=== PATIENT | female | born 1955 | race Caucasian/White ===

== ENCOUNTER 2019-10-17 19:22 | Emergency (ER) | payer MEDICAID ==
[~2019-10-17] VITALS: Ht 167.6 cm; Wt 158.0 kg
[2019-10-17 19:39] VITALS: BP 133/94
== END 2019-10-17 19:30 | disposition left against medical advice (07) ==
LOC: ER 19:22
DX: M79.662 Pain in left lower leg (principal); M79.661 Pain in right lower leg; Z53.21 Procedure and treatment not carried out due to patient leaving prior to being seen by health care provider

== ENCOUNTER 2022-07-16 11:18 | Inpatient (IN) | payer MEDICAID ==
[~2022-07-16] VITALS: Ht 170.2 cm; Wt 191.9 kg
[~2022-07-16 11:18] MED LIST: METF-416 MT; TRAM50TA3 MT
[2022-07-16] MEDS ORDERED: DILTIAZEM HCL 5MG/ML 5ML VIAL IV ONE (11:30)
[2022-07-16] MEDS ORDERED: ASPIRIN 81MG TABLET PO ONE (11:30)
[2022-07-16 12:42] LABS: BASOPHILS % 0.4 % (0.0-2.0); EOSINOPHILS % 0.7 % (0.0-5.0); HEMATOCRIT. 39.5 % (36.0-48.0); HEMOGLOBIN. 12.4 g/dL (12.0-16.0); LYMPHOCYTES % 14.6 % (20.0-50.0); MEAN CORPUSCULAR HEMOGLOBIN 28.7 pg (28.0-32.0); MEAN CORPUSCULAR VOLUME 91.3 fL (81.0-99.0); MEAN PLATELET VOLUME 7.9 fl (7.4-10.4); MONOCYTES % 9.3 % (2.0-8.0); PLATELET 281 x1000/uL (130-400); RED BLOOD CELL COUNT 4.32 mill/uL (4.2-5.4)
[2022-07-16] MEDS ORDERED: DILTIAZEM HCL 5MG/ML 5ML VIAL IV NR (16:15)
[2022-07-16 16:30] LABS: CHLORIDE 96 mEq/L (98-107)
[2022-07-16] MEDS ORDERED: DILTIAZEM HCL 60MG TABLET PO NR (16:30)
[2022-07-16] MEDS ORDERED: FUROSEMIDE 40MG/4ML VIAL IV NR (17:00)
[2022-07-16] MEDS ORDERED: LEVOTHYROXINE SODIUM 25MCG TABLET PO NR (17:00)
[2022-07-16] MEDS ORDERED: NITROGLYCERIN OINT 1GM/INCH UDPKT TD NR (17:00)
[2022-07-16] MEDS ORDERED: GUAIFENESIN 200MG/10ML SUGAR FREE UDC PO PRN (18:15)
[2022-07-16] MEDS ORDERED: CLONIDINE 0.1MG TABLET PO PRN (18:15)
[2022-07-16] MEDS ORDERED: NALOXONE HCL 0.4MG/ML VIAL IV PRN (18:15)
[2022-07-16] MEDS ORDERED: ACETAMINOPHEN 325MG TABLET PO PRN (18:15)
[2022-07-16] MEDS ORDERED: DILTIAZEM 125MG/125ML PMX 100 ML IV SCH (19:15)
[2022-07-16 20:00] VITALS: BP 97/66
[2022-07-16] MEDS ORDERED: DIGOXIN 500MCG/2ML AMP IV PRN (20:00)
[2022-07-16] MEDS: ENOXAPARIN 40MG/0.4ML SYR SUBCUT SCH (20:32)
[2022-07-16 20:54] LABS: INR 1.1
[2022-07-16 21:23] VITALS: BP 132/67
[2022-07-16 22:00] VITALS: BP 106/67
[2022-07-16] MEDS ORDERED: ENOXAPARIN 100MG/ML SYR SUBCUT SCH (22:00)
[2022-07-17] VITALS (12 sets, daily range): BP systolic 94–137; BP diastolic 27–94
[2022-07-17] MEDS ORDERED: FURO40TA5 PO (02:02)
[2022-07-17] MEDS ORDERED: LEVO200T8 PO (02:02)
[2022-07-17] MEDS ORDERED: METO100T16 PO (02:02)
[2022-07-17] MEDS ORDERED: LISI-186 PO (02:02)
[2022-07-17] MEDS ORDERED: DILT120C91 PO (02:02)
[2022-07-17] MEDS ORDERED: DILTIAZEM HCL 125 MG in DEXTROSE 5% WATER 125 ML IV SCH (03:15)
[2022-07-17] MEDS ORDERED: DEXTROSE 50% WATER 50ML SYRINGE IV PRN (05:30)
[2022-07-17] MEDS: ENOXAPARIN 40MG/0.4ML SYR SUBCUT SCH ×2 (05:38→17:12)
[2022-07-17 05:51] LABS: CHLORIDE 93 mEq/L (98-107)
[2022-07-17 06:09] LABS: T4 FREE 0.72 ng/dL (0.76-1.46)
[2022-07-17 06:49] LABS: BASOPHILS % 0.4 % (0.0-2.0); HEMATOCRIT. 37.6 % (36.0-48.0); LYMPHOCYTES % 14.9 % (20.0-50.0); MEAN CORPUSCULAR HEMOGLOBIN 28.8 pg (28.0-32.0); MEAN CORPUSCULAR VOLUME 90.4 fL (81.0-99.0); MEAN PLATELET VOLUME 7.5 fl (7.4-10.4); MONOCYTES % 7.8 % (2.0-8.0); NEUTROPHILS % 75.9 % (40.0-76.0); PLATELET 278 x1000/uL (130-400); RED BLOOD CELL COUNT 4.17 mill/uL (4.2-5.4); RED CELL DISTRIBUTION WIDTH 15.2 % (11.6-14.6)
[2022-07-17] MEDS ORDERED: LIDOCAINE HCL 1% 30ML VIAL (10MG/ML) ONE (07:29)
[2022-07-17] MEDS: BLOOD SUGAR DIAGNOSTIC STRIP TEST SCH ×4 (07:30→21:10)
[2022-07-17] MEDS: INSULIN LISPRO 100 UNITS/ML SUBCUT SCH ×4 (08:00→21:00)
[2022-07-17] MEDS: PANTOPRAZOLE SODIUM 40 MG/VIAL IV SCH (08:50)
[2022-07-17] MEDS: FUROSEMIDE 40MG/4ML VIAL IVP SCH (08:50)
[2022-07-17] MEDS: ENOXAPARIN 150MG/ML SYR SUBCUT SCH ×2 (08:56→21:00)
[2022-07-17 09:19] LABS: CLARITY URINE CLOUDY (CLEAR); COLOR URINE ORANGE (YELLOW); KETONES URINE NEGATIVE (NEGATIVE); LEUKOCYTE ESTERASE URINE 3+ (NEGATIVE); NITRITE URINE NEGATIVE (NEGATIVE); OCCULT BLOOD URINE 3+ (NEGATIVE); PH URINE 5.5 (4.5-8.0); PROTEIN URINE 2+ (NEGATIVE); SPECIFIC GRAVITY URINE 1.013 (1.005-1.030)
[2022-07-17 09:22] LABS: T4 FREE 0.74 ng/dL (0.76-1.46)
[2022-07-17] MEDS ORDERED: AMIODARONE HCL 900 MG in DEXT 5% WATER 500 ML IV SCH (10:00)
[2022-07-17 16:35] LABS: CREATINE KINASE MB FRACTION 1.3 ng/mL (0.5-3.6)
[2022-07-17] MEDS: ACETAMINOPHEN 325MG TABLET PO PRN (21:16)
[2022-07-17] MEDS: ONDANSETRON HCL 4MG/2ML INJ IV PRN (21:16)
[2022-07-18] VITALS: BP 112/59
[2022-07-18 02:00] VITALS: BP 109/74
[2022-07-18] MEDS: ENOXAPARIN 40MG/0.4ML SYR SUBCUT SCH (05:29)
[2022-07-18 05:44] LABS: HEMATOCRIT 34.2 % (36.0-48.0); HEMOGLOBIN 11.1 g/dL (12.0-16.0); MEAN CORPUSCULAR HEMOGLOBIN 28.8 pg (28.0-32.0); PLATELET 253 x1000/uL (130-400); RED BLOOD CELL COUNT 3.85 mill/uL (4.2-5.4); RED CELL DISTRIBUTION WIDTH 15.5 % (11.6-14.6)
[2022-07-18 06:03] LABS: CREATINE KINASE MB FRACTION 1.1 ng/mL (0.5-3.6)
[2022-07-18] MEDS: BLOOD SUGAR DIAGNOSTIC STRIP TEST SCH ×4 (07:30→21:19)
[2022-07-18] MEDS: INSULIN LISPRO 100 UNITS/ML SUBCUT SCH ×4 (08:00→21:00)
[2022-07-18 08:41] LABS: BG BASE EXCESS 12.1 mmol/L (-2.0-2.0); BG CARBOXYHEMOGLOBIN 0.8 % (0.5-1.5); BG DEOXYHEMOGLOBIN 6.3 % (0.0-5.0); BG HCO3 ACT 40.7 mmol/L (22.0-26.0); BG METHEMOGLOBIN 0.2 % (0.0-1.5); BG OXYGEN SATURATION 93.6 % (92.0-98.5); BG OXYHEMOGLOBIN 92.7 % (94.0-97.0); BG PCO2 76.1 mmHg (35.0-45.0); BG PH 7.346 (7.350-7.450); BG PO2 71.5 mmHg (75.0-100.0); BG SAMPLE SITE RIGHT RADIAL; BG VENT MODE NASAL CANNULA
[2022-07-18] MEDS: ENOXAPARIN 150MG/ML SYR SUBCUT SCH ×2 (09:00→21:19)
[2022-07-18] MEDS ORDERED: DIGOXIN 500MCG/2ML AMP IV NR ×2 (09:15→10:30)
[2022-07-18] MEDS: PANTOPRAZOLE SODIUM 40 MG/VIAL IV SCH (10:10)
[2022-07-18] MEDS: FUROSEMIDE 40MG/4ML VIAL IVP SCH (10:10)
[2022-07-18] MEDS: LEVOTHYROXINE SODIUM 100MCG TABLET PO SCH (10:12)
[2022-07-18 13:57] LABS: BG CARBOXYHEMOGLOBIN 1.1 % (0.5-1.5); BG DEOXYHEMOGLOBIN 0.7 % (0.0-5.0); BG FRACTION INSPIRED OXYGEN 60; BG HCO3 ACT 42.7 mmol/L (22.0-26.0); BG METHEMOGLOBIN 0.2 % (0.0-1.5); BG OXYGEN SATURATION 99.3 % (92.0-98.5); BG PCO2 85.2 mmHg (35.0-45.0); BG PH 7.318 (7.350-7.450); BG PO2 201.8 mmHg (75.0-100.0); BG SAMPLE SITE RIGHT RADIAL; BG TOTAL HEMOGLOBIN 12.5 g/dL (12.0-18.0); BG VENT MODE MASK - BIPAP
[2022-07-18 20:00] VITALS: BP 97/56
[2022-07-18] MEDS: BUDESONIDE 0.5MG/2ML NEB HHN SCH (20:53)
[2022-07-18] MEDS: SULFAMETHOXAZOLE/TRIMETHOPRIM 800/160MG TABLET PO SCH (21:19)
[2022-07-18] MEDS: HYDROCODONE/ACETAMINOPHEN 5/325MG TABLET PO PRN (21:20)
[2022-07-18 22:00] VITALS: BP 108/68
[2022-07-19] VITALS (16 sets, daily range): BP systolic 86–170; BP diastolic 32–88
[2022-07-19 01:38] LABS: CLARITY URINE CLOUDY (CLEAR); COLOR URINE ORANGE (YELLOW); KETONES URINE NEGATIVE (NEGATIVE); LEUKOCYTE ESTERASE URINE 2+ (NEGATIVE); NITRITE URINE NEGATIVE (NEGATIVE); OCCULT BLOOD URINE 3+ (NEGATIVE); PH URINE 5.5 (4.5-8.0); PROTEIN URINE 1+ (NEGATIVE); SPECIFIC GRAVITY URINE 1.011 (1.005-1.030)
[2022-07-19] MEDS: BLOOD SUGAR DIAGNOSTIC STRIP TEST SCH ×4 (07:30→21:02)
[2022-07-19] MEDS: INSULIN LISPRO 100 UNITS/ML SUBCUT SCH ×4 (08:00→21:00)
[2022-07-19] MEDS ORDERED: DIGOXIN 500MCG/2ML AMP IV SCH (08:00)
[2022-07-19] MEDS: BUDESONIDE 0.5MG/2ML NEB HHN SCH ×2 (08:24→22:32)
[2022-07-19] MEDS: IPRATROPIUM/ALBUTEROL 0.5-3(2.5)MG/3ML NEB HHN PRN ×2 (08:24→22:32)
[2022-07-19 08:47] LABS: BG BASE EXCESS 14.2 mmol/L (-2.0-2.0); BG CARBOXYHEMOGLOBIN 0.5 % (0.5-1.5); BG DEOXYHEMOGLOBIN 5.8 % (0.0-5.0); BG FRACTION INSPIRED OXYGEN 38; BG HCO3 ACT 44.1 mmol/L (22.0-26.0); BG METHEMOGLOBIN 0.9 % (0.0-1.5); BG OXYGEN SATURATION 94.1 % (92.0-98.5); BG OXYHEMOGLOBIN 92.8 % (94.0-97.0); BG PCO2 89.1 mmHg (35.0-45.0); BG PH 7.312 (7.350-7.450); BG PO2 75.4 mmHg (75.0-100.0); BG SAMPLE SITE RIGHT RADIAL; BG TOTAL HEMOGLOBIN 12.1 g/dL (12.0-18.0); BG VENT MODE NASAL CANNULA
[2022-07-19] MEDS: AMIODARONE HCL 200 MG TABLET PO SCH ×2 (09:45→20:50)
[2022-07-19] MEDS: SULFAMETHOXAZOLE/TRIMETHOPRIM 800/160MG TABLET PO SCH ×2 (09:45→20:48)
[2022-07-19] MEDS: LEVOTHYROXINE SODIUM 100MCG TABLET PO SCH (09:45)
[2022-07-19] MEDS: PANTOPRAZOLE SODIUM 40 MG/VIAL IV SCH (09:46)
[2022-07-19] MEDS: DOCUSATE SODIUM 100MG CAPSULE PO PRN (09:46)
[2022-07-19] MEDS: METOPROLOL TARTRATE 25MG TABLET PO SCH ×2 (09:46→20:47)
[2022-07-19] MEDS: FUROSEMIDE 40MG/4ML VIAL IVP SCH (09:47)
[2022-07-19] MEDS: ENOXAPARIN 150MG/ML SYR SUBCUT SCH ×2 (09:48→20:46)
[2022-07-19 10:14] LABS: HEMATOCRIT 35.1 % (36.0-48.0); HEMOGLOBIN 11.1 g/dL (12.0-16.0); MEAN CORPUSCULAR HEMOGLOBIN 28.5 pg (28.0-32.0); MEAN CORPUSCULAR VOLUME 90.2 fL (81.0-99.0); PLATELET 216 x1000/uL (130-400); RED BLOOD CELL COUNT 3.89 mill/uL (4.2-5.4); RED CELL DISTRIBUTION WIDTH 15.7 % (11.6-14.6)
[2022-07-19 10:47] LABS: CHLORIDE 95 mEq/L (98-107)
[2022-07-19] MEDS: ONDANSETRON HCL 4MG/2ML INJ IV PRN (15:08)
[2022-07-19] MEDS: HYDROCODONE/ACETAMINOPHEN 5/325MG TABLET PO PRN ×2 (16:51→20:49)
[2022-07-19 18:26] LABS: BG BASE EXCESS 15.1 mmol/L (-2.0-2.0); BG CARBOXYHEMOGLOBIN 0.9 % (0.5-1.5); BG DEOXYHEMOGLOBIN 3.3 % (0.0-5.0); BG FRACTION INSPIRED OXYGEN 44; BG HCO3 ACT 44.4 mmol/L (22.0-26.0); BG METHEMOGLOBIN 0.2 % (0.0-1.5); BG OXYGEN SATURATION 96.7 % (92.0-98.5); BG OXYHEMOGLOBIN 95.6 % (94.0-97.0); BG PCO2 83.3 mmHg (35.0-45.0); BG PH 7.345 (7.350-7.450); BG PO2 90.8 mmHg (75.0-100.0); BG SAMPLE SITE RIGHT RADIAL; BG TOTAL HEMOGLOBIN 12.2 g/dL (12.0-18.0); BG VENT MODE NASAL CANNULA
[2022-07-20] VITALS (13 sets, daily range): BP systolic 102–151; BP diastolic 59–101
[2022-07-20] MEDS: HYDROCODONE/ACETAMINOPHEN 5/325MG TABLET PO PRN (04:58)
[2022-07-20] MEDS: LEVOTHYROXINE SODIUM 100MCG TABLET PO SCH (06:53)
[2022-07-20] MEDS: BLOOD SUGAR DIAGNOSTIC STRIP TEST SCH ×3 (07:30→17:30)
[2022-07-20] MEDS: INSULIN LISPRO 100 UNITS/ML SUBCUT SCH ×3 (08:00→18:00)
[2022-07-20] MEDS: BUDESONIDE 0.5MG/2ML NEB HHN SCH ×2 (08:20→20:35)
[2022-07-20 08:33] LABS: BG BASE EXCESS 18.2 mmol/L (-2.0-2.0); BG CARBOXYHEMOGLOBIN 0.9 % (0.5-1.5); BG DEOXYHEMOGLOBIN 3.4 % (0.0-5.0); BG FRACTION INSPIRED OXYGEN 38; BG HCO3 ACT 49.1 mmol/L (22.0-26.0); BG METHEMOGLOBIN 0.2 % (0.0-1.5); BG OXYGEN SATURATION 96.6 % (92.0-98.5); BG OXYHEMOGLOBIN 95.5 % (94.0-97.0); BG PCO2 100.2 mmHg (35.0-45.0); BG PH 7.308 (7.350-7.450); BG PO2 92.9 mmHg (75.0-100.0); BG SAMPLE SITE LEFT RADIAL; BG TOTAL HEMOGLOBIN 12.3 g/dL (12.0-18.0); BG VENT MODE NASAL CANNULA
[2022-07-20] MEDS: METOPROLOL TARTRATE 25MG TABLET PO SCH ×2 (09:19→20:43)
[2022-07-20] MEDS: SULFAMETHOXAZOLE/TRIMETHOPRIM 800/160MG TABLET PO SCH ×2 (09:19→20:43)
[2022-07-20] MEDS: FUROSEMIDE 40MG/4ML VIAL IVP SCH (09:20)
[2022-07-20] MEDS: AMIODARONE HCL 200 MG TABLET PO SCH ×2 (09:20→20:43)
[2022-07-20] MEDS: FAMOTIDINE 20MG/2ML VIAL IV SCH ×2 (09:20→20:43)
[2022-07-20] MEDS: ENOXAPARIN 150MG/ML SYR SUBCUT SCH ×2 (09:21→20:44)
[2022-07-20] MEDS: ONDANSETRON HCL 4MG/2ML INJ IV PRN (10:02)
[2022-07-20] MEDS: ACETAMINOPHEN 325MG TABLET PO PRN (13:21)
[2022-07-20 17:05] LABS: BG BASE EXCESS 17.8 mmol/L (-2.0-2.0); BG DEOXYHEMOGLOBIN 4.8 % (0.0-5.0); BG HCO3 ACT 46.2 mmol/L (22.0-26.0); BG METHEMOGLOBIN 0.1 % (0.0-1.5); BG OXYGEN SATURATION 95.1 % (92.0-98.5); BG OXYHEMOGLOBIN 94.1 % (94.0-97.0); BG PH 7.402 (7.350-7.450); BG PO2 73.5 mmHg (75.0-100.0); BG SAMPLE SITE RIGHT RADIAL; BG TOTAL HEMOGLOBIN 12.4 g/dL (12.0-18.0); BG VENT MODE NASAL CANNULA
[2022-07-20] MEDS: IPRATROPIUM/ALBUTEROL 0.5-3(2.5)MG/3ML NEB HHN PRN (17:39)
[2022-07-20 17:59] LABS: HEMATOCRIT 37.3 % (36.0-48.0); HEMOGLOBIN 11.7 g/dL (12.0-16.0); MEAN CORPUSCULAR HEMOGLOBIN 28.3 pg (28.0-32.0); MEAN CORPUSCULAR VOLUME 89.9 fL (81.0-99.0); PLATELET 248 x1000/uL (130-400); RED BLOOD CELL COUNT 4.14 mill/uL (4.2-5.4); RED CELL DISTRIBUTION WIDTH 15.5 % (11.6-14.6)
[2022-07-20 18:21] LABS: CHLORIDE 90 mEq/L (98-107)
[2022-07-21] VITALS (14 sets, daily range): BP systolic 112–145; BP diastolic 36–96
[2022-07-21] MEDS: LEVOTHYROXINE SODIUM 100MCG TABLET PO SCH ×2 (07:07→08:19)
[2022-07-21] MEDS: BLOOD SUGAR DIAGNOSTIC STRIP TEST SCH ×4 (07:45→21:00)
[2022-07-21] MEDS: INSULIN LISPRO 100 UNITS/ML SUBCUT SCH ×4 (07:46→21:00)
[2022-07-21] MEDS: IPRATROPIUM/ALBUTEROL 0.5-3(2.5)MG/3ML NEB HHN PRN (08:15)
[2022-07-21] MEDS: FAMOTIDINE 20MG/2ML VIAL IV SCH (08:18)
[2022-07-21] MEDS: FUROSEMIDE 40MG/4ML VIAL IVP SCH ×2 (08:18→22:22)
[2022-07-21] MEDS: ENOXAPARIN 150MG/ML SYR SUBCUT SCH ×2 (08:19→22:23)
[2022-07-21] MEDS: AMIODARONE HCL 200 MG TABLET PO SCH ×2 (08:19→22:22)
[2022-07-21] MEDS: METOPROLOL TARTRATE 25MG TABLET PO SCH ×2 (08:19→22:20)
[2022-07-21] MEDS: SULFAMETHOXAZOLE/TRIMETHOPRIM 800/160MG TABLET PO SCH ×3 (08:19→22:25)
[2022-07-21] MEDS ORDERED: POLYVINYL ALCOHOL OPHTH DROPS 15ML BOTHEYE PRN (11:30)
[2022-07-21 13:30] LABS: HEMATOCRIT 36.6 % (36.0-48.0); HEMOGLOBIN 11.8 g/dL (12.0-16.0); MEAN CORPUSCULAR HEMOGLOBIN 28.8 pg (28.0-32.0); MEAN CORPUSCULAR VOLUME 89.2 fL (81.0-99.0); PLATELET 216 x1000/uL (130-400); RED CELL DISTRIBUTION WIDTH 15.2 % (11.6-14.6)
[2022-07-21 14:07] LABS: CHLORIDE 91 mEq/L (98-107)
[2022-07-21] MEDS: ONDANSETRON HCL 4MG/2ML INJ IV PRN (14:11)
[2022-07-21] MEDS: FAMOTIDINE 20MG TABLET PO SCH (22:26)
[2022-07-21] MEDS: BUDESONIDE 0.5MG/2ML NEB HHN SCH (23:15)
[2022-07-22] VITALS (13 sets, daily range): BP systolic 99–135; BP diastolic 58–89
[2022-07-22] MEDS: BUDESONIDE 0.5MG/2ML NEB HHN SCH ×3 (03:45→20:30)
[2022-07-22] MEDS: BLOOD SUGAR DIAGNOSTIC STRIP TEST SCH ×4 (07:30→20:39)
[2022-07-22] MEDS: IPRATROPIUM/ALBUTEROL 0.5-3(2.5)MG/3ML NEB HHN PRN ×2 (07:59→20:31)
[2022-07-22] MEDS: INSULIN LISPRO 100 UNITS/ML SUBCUT SCH ×4 (08:00→20:39)
[2022-07-22 09:57] LABS: BG BASE EXCESS 19.2 mmol/L (-2.0-2.0); BG CARBOXYHEMOGLOBIN 0.9 % (0.5-1.5); BG DEOXYHEMOGLOBIN 8.1 % (0.0-5.0); BG FRACTION INSPIRED OXYGEN 36; BG HCO3 ACT 47.8 mmol/L (22.0-26.0); BG METHEMOGLOBIN 0.3 % (0.0-1.5); BG OXYGEN SATURATION 91.8 % (92.0-98.5); BG OXYHEMOGLOBIN 90.7 % (94.0-97.0); BG PH 7.411 (7.350-7.450); BG PO2 62.6 mmHg (75.0-100.0); BG SAMPLE SITE RIGHT RADIAL; BG TOTAL HEMOGLOBIN 12.7 g/dL (12.0-18.0); BG VENT MODE NASAL CANNULA
[2022-07-22] MEDS: FUROSEMIDE 40MG/4ML VIAL IVP SCH ×2 (10:01→20:37)
[2022-07-22] MEDS: METOPROLOL TARTRATE 25MG TABLET PO SCH ×2 (10:02→20:38)
[2022-07-22] MEDS: AMIODARONE HCL 200 MG TABLET PO SCH ×2 (10:02→20:38)
[2022-07-22] MEDS: FAMOTIDINE 20MG TABLET PO SCH ×2 (10:02→20:38)
[2022-07-22] MEDS: ENOXAPARIN 150MG/ML SYR SUBCUT SCH ×2 (10:02→20:38)
[2022-07-22] MEDS ORDERED: AMI2 PO (16:29)
[2022-07-22] MEDS ORDERED: LEVO100T9 PO (16:29)
[2022-07-22] MEDS ORDERED: METO25TA6 PO (16:29)
[2022-07-22] MEDS ORDERED: SULF1TAB44 PO (16:29)
[2022-07-22] MEDS ORDERED: FURO80TA87 MT (16:29)
[2022-07-22] MEDS: SULFAMETHOXAZOLE/TRIMETHOPRIM 800/160MG TABLET PO SCH (20:38)
[2022-07-23] VITALS (12 sets, daily range): BP systolic 121–147; BP diastolic 63–93
[2022-07-23] MEDS: BLOOD SUGAR DIAGNOSTIC STRIP TEST SCH ×4 (07:30→20:50)
[2022-07-23] MEDS: INSULIN LISPRO 100 UNITS/ML SUBCUT SCH ×4 (08:00→20:51)
[2022-07-23] MEDS: FAMOTIDINE 20MG TABLET PO SCH ×2 (09:00→20:50)
[2022-07-23] MEDS: FUROSEMIDE 40MG/4ML VIAL IVP SCH ×2 (09:00→20:48)
[2022-07-23] MEDS: ENOXAPARIN 150MG/ML SYR SUBCUT SCH ×2 (09:00→20:49)
[2022-07-23] MEDS: METOPROLOL TARTRATE 25MG TABLET PO SCH ×2 (09:00→20:50)
[2022-07-23] MEDS: AMIODARONE HCL 200 MG TABLET PO SCH ×2 (09:00→20:49)
[2022-07-23] MEDS: SULFAMETHOXAZOLE/TRIMETHOPRIM 800/160MG TABLET PO SCH ×2 (09:00→20:49)
[2022-07-23] MEDS: LEVOTHYROXINE SODIUM 100MCG TABLET PO SCH (09:31)
[2022-07-23] MEDS: BUDESONIDE 0.5MG/2ML NEB HHN SCH ×2 (09:44→20:30)
[2022-07-23] MEDS: IPRATROPIUM/ALBUTEROL 0.5-3(2.5)MG/3ML NEB HHN PRN (09:44)
[2022-07-23] MEDS: ACETAMINOPHEN 325MG TABLET PO PRN (17:25)
[2022-07-23] MEDS: ONDANSETRON HCL 4MG/2ML INJ IV PRN (20:48)
[2022-07-23] MEDS: LIDOCAINE HCL 4% CREAM 76GM TUBE TP SCH (20:50)
[2022-07-24] VITALS (14 sets, daily range): BP systolic 113–144; BP diastolic 55–96
[2022-07-24] MEDS: BUDESONIDE 0.5MG/2ML NEB HHN SCH (07:49)
[2022-07-24] MEDS: INSULIN LISPRO 100 UNITS/ML SUBCUT SCH ×4 (08:00→21:00)
[2022-07-24] MEDS: BLOOD SUGAR DIAGNOSTIC STRIP TEST SCH ×4 (08:13→21:49)
[2022-07-24] MEDS: SULFAMETHOXAZOLE/TRIMETHOPRIM 800/160MG TABLET PO SCH ×2 (09:01→22:07)
[2022-07-24] MEDS: ENOXAPARIN 150MG/ML SYR SUBCUT SCH ×2 (09:01→21:48)
[2022-07-24] MEDS: LEVOTHYROXINE SODIUM 100MCG TABLET PO SCH (09:01)
[2022-07-24] MEDS: FUROSEMIDE 100MG/10ML VIAL IVP SCH (09:02)
[2022-07-24] MEDS: METOPROLOL TARTRATE 25MG TABLET PO SCH ×2 (09:03→21:48)
[2022-07-24] MEDS: FAMOTIDINE 20MG TABLET PO SCH ×2 (09:03→21:48)
[2022-07-24] MEDS: AMIODARONE HCL 200 MG TABLET PO SCH ×2 (09:03→21:48)
[2022-07-24] MEDS: ONDANSETRON HCL 4MG/2ML INJ IV PRN (19:16)
[2022-07-24] MEDS: FUROSEMIDE 40MG/4ML VIAL IVP SCH (21:47)
[2022-07-24] MEDS: LIDOCAINE HCL 4% CREAM 76GM TUBE TP SCH (21:48)
[2022-07-25] VITALS (11 sets, daily range): BP systolic 103–141; BP diastolic 52–84
[2022-07-25 06:37] LABS: HEMATOCRIT 39.5 % (36.0-48.0); HEMOGLOBIN 12.5 g/dL (12.0-16.0); MEAN CORPUSCULAR HEMOGLOBIN 28.1 pg (28.0-32.0); MEAN CORPUSCULAR VOLUME 88.7 fL (81.0-99.0); PLATELET 265 x1000/uL (130-400); RED BLOOD CELL COUNT 4.45 mill/uL (4.2-5.4); RED CELL DISTRIBUTION WIDTH 15.8 % (11.6-14.6)
[2022-07-25] MEDS: LEVOTHYROXINE SODIUM 100MCG TABLET PO SCH (06:40)
[2022-07-25] MEDS: INSULIN LISPRO 100 UNITS/ML SUBCUT SCH ×4 (08:00→21:00)
[2022-07-25] MEDS: BLOOD SUGAR DIAGNOSTIC STRIP TEST SCH ×4 (08:03→21:00)
[2022-07-25 08:48] LABS: BG CARBOXYHEMOGLOBIN 1.2 % (0.5-1.5); BG FRACTION INSPIRED OXYGEN 36; BG HCO3 ACT 46.6 mmol/L (22.0-26.0); BG METHEMOGLOBIN 0.3 % (0.0-1.5); BG OXYGEN SATURATION 93.9 % (92.0-98.5); BG OXYHEMOGLOBIN 92.5 % (94.0-97.0); BG PCO2 73.7 mmHg (35.0-45.0); BG PH 7.419 (7.350-7.450); BG PO2 69.7 mmHg (75.0-100.0); BG SAMPLE SITE LEFT RADIAL; BG TOTAL HEMOGLOBIN 13.8 g/dL (12.0-18.0); BG VENT MODE NASAL CANNULA
[2022-07-25] MEDS: FUROSEMIDE 100MG/10ML VIAL IVP SCH (09:11)
[2022-07-25] MEDS: FAMOTIDINE 20MG TABLET PO SCH ×2 (09:11→22:15)
[2022-07-25] MEDS: AMIODARONE HCL 200 MG TABLET PO SCH ×2 (09:11→22:15)
[2022-07-25] MEDS: METOPROLOL TARTRATE 25MG TABLET PO SCH ×2 (09:12→22:14)
[2022-07-25] MEDS: IPRATROPIUM/ALBUTEROL 0.5-3(2.5)MG/3ML NEB HHN PRN (10:05)
[2022-07-25 12:48] LABS: INR 1.1; PROTHROMBIN TIME 11.5 sec (9.6-11.0)
[2022-07-25] MEDS: ENOXAPARIN 150MG/ML SYR SUBCUT SCH ×2 (13:32→22:16)
[2022-07-25] MEDS ORDERED: WARFARIN SODIUM 5MG TABLET PO SCH (18:00)
[2022-07-25] MEDS ORDERED: WARFARIN SODIUM 10MG TABLET PO SCH (18:00)
[2022-07-25] MEDS ORDERED: CYCLOBENZAPRINE 10MG TABLET PO PRN (18:16)
[2022-07-25] MEDS: LIDOCAINE HCL 4% CREAM 76GM TUBE TP SCH (21:00)
[2022-07-25] MEDS: FUROSEMIDE 40MG/4ML VIAL IVP SCH (22:28)
[2022-07-26] VITALS: BP 129/80
[2022-07-26] MEDS: BLOOD SUGAR DIAGNOSTIC STRIP TEST SCH ×4 (06:34→21:00)
[2022-07-26] MEDS: INSULIN LISPRO 100 UNITS/ML SUBCUT SCH ×4 (06:34→20:54)
[2022-07-26] MEDS: LEVOTHYROXINE SODIUM 100MCG TABLET PO SCH (06:34)
[2022-07-26 08:00] VITALS: BP 134/77
[2022-07-26] MEDS: AMIODARONE HCL 200 MG TABLET PO SCH ×2 (09:38→20:55)
[2022-07-26] MEDS: METOPROLOL TARTRATE 25MG TABLET PO SCH ×2 (09:38→20:56)
[2022-07-26] MEDS: FAMOTIDINE 20MG TABLET PO SCH ×2 (09:38→20:57)
[2022-07-26] MEDS: FUROSEMIDE 100MG/10ML VIAL IVP SCH (09:38)
[2022-07-26] MEDS: ENOXAPARIN 150MG/ML SYR SUBCUT SCH ×2 (09:39→21:00)
[2022-07-26 12:00] VITALS: BP 112/66
[2022-07-26 16:00] VITALS: BP 118/53
[2022-07-26] MEDS ORDERED: WARFARIN SODIUM 10MG TABLET PO SCH (18:00)
[2022-07-26 20:00] VITALS: BP 147/63
[2022-07-26 20:19] LABS: INR 1.1; PROTHROMBIN TIME 11.9 sec (9.6-11.0)
[2022-07-26] MEDS: FUROSEMIDE 40MG/4ML VIAL IVP SCH (20:55)
[2022-07-26] MEDS: LIDOCAINE HCL 4% CREAM 76GM TUBE TP SCH (21:00)
[2022-07-27 04:00] VITALS: BP 124/66
[2022-07-27] MEDS: INSULIN LISPRO 100 UNITS/ML SUBCUT SCH ×4 (05:57→20:59)
[2022-07-27] MEDS: BLOOD SUGAR DIAGNOSTIC STRIP TEST SCH ×4 (05:57→21:00)
[2022-07-27] MEDS: LEVOTHYROXINE SODIUM 100MCG TABLET PO SCH (06:05)
[2022-07-27] MEDS: ONDANSETRON HCL 4MG/2ML INJ IV PRN (06:56)
[2022-07-27 07:30] LABS: INR 1.2; PROTHROMBIN TIME 12.7 sec (9.6-11.0)
[2022-07-27 08:00] VITALS: BP 117/58
[2022-07-27] MEDS: FAMOTIDINE 20MG TABLET PO SCH ×2 (09:00→20:59)
[2022-07-27] MEDS: AMIODARONE HCL 200 MG TABLET PO SCH ×2 (10:26→20:59)
[2022-07-27] MEDS: METOPROLOL TARTRATE 25MG TABLET PO SCH ×2 (10:28→20:59)
[2022-07-27] MEDS: FUROSEMIDE 100MG/10ML VIAL IVP SCH (10:30)
[2022-07-27] MEDS: ENOXAPARIN 150MG/ML SYR SUBCUT SCH ×2 (10:35→20:58)
[2022-07-27 12:00] VITALS: BP 115/55
[2022-07-27 16:00] VITALS: BP 119/62
[2022-07-27] MEDS ORDERED: WARFARIN SODIUM 10MG TABLET PO SCH (18:00)
[2022-07-27] MEDS ORDERED: WARFARIN SODIUM 2MG TABLET PO SCH (18:00)
[2022-07-27 20:00] VITALS: BP 115/66
[2022-07-27] MEDS: FUROSEMIDE 40MG/4ML VIAL IVP SCH (20:59)
[2022-07-27] MEDS: LIDOCAINE HCL 4% CREAM 76GM TUBE TP SCH (21:00)
[2022-07-28] VITALS: BP 119/63
[2022-07-28 04:00] VITALS: BP 124/94
[2022-07-28 06:28] LABS: BASOPHILS % 0.7 % (0.0-2.0); EOSINOPHILS % 2.2 % (0.0-5.0); HEMATOCRIT. 45.7 % (36.0-48.0); HEMOGLOBIN. 14.8 g/dL (12.0-16.0); LYMPHOCYTES % 28.8 % (20.0-50.0); MEAN CORPUSCULAR HEMOGLOBIN 28.6 pg (28.0-32.0); MEAN PLATELET VOLUME 7.7 fl (7.4-10.4); MONOCYTES % 9.7 % (2.0-8.0); NEUTROPHILS % 58.6 % (40.0-76.0); PLATELET 270 x1000/uL (130-400); RED BLOOD CELL COUNT 5.19 mill/uL (4.2-5.4); RED CELL DISTRIBUTION WIDTH 15.9 % (11.6-14.6)
[2022-07-28] MEDS: INSULIN LISPRO 100 UNITS/ML SUBCUT SCH ×4 (06:32→20:53)
[2022-07-28] MEDS: BLOOD SUGAR DIAGNOSTIC STRIP TEST SCH ×4 (06:32→20:56)
[2022-07-28] MEDS: LEVOTHYROXINE SODIUM 100MCG TABLET PO SCH (06:32)
[2022-07-28 06:46] LABS: INR 1.6; PROTHROMBIN TIME 16.7 sec (9.6-11.0)
[2022-07-28 08:00] VITALS: BP 104/76
[2022-07-28] MEDS: FUROSEMIDE 100MG/10ML VIAL IVP SCH (08:17)
[2022-07-28] MEDS: ENOXAPARIN 150MG/ML SYR SUBCUT SCH ×2 (08:18→20:56)
[2022-07-28] MEDS: FAMOTIDINE 20MG TABLET PO SCH ×2 (08:18→20:55)
[2022-07-28] MEDS: AMIODARONE HCL 200 MG TABLET PO SCH ×2 (08:19→20:54)
[2022-07-28] MEDS: METOPROLOL TARTRATE 25MG TABLET PO SCH ×2 (08:19→20:55)
[2022-07-28] MEDS: DOCUSATE SODIUM 100MG CAPSULE PO PRN (09:56)
[2022-07-28] MEDS: ONDANSETRON HCL 4MG/2ML INJ IV PRN (09:56)
[2022-07-28 12:00] VITALS: BP 121/60
[2022-07-28 16:00] VITALS: BP 129/68
[2022-07-28] MEDS ORDERED: WARFARIN SODIUM 2MG TABLET PO SCH (18:00)
[2022-07-28] MEDS ORDERED: WARFARIN SODIUM 10MG TABLET PO SCH (18:00)
[2022-07-28 20:00] VITALS: BP 99/51
[2022-07-28] MEDS ORDERED: KCL 20MEQ/100ML PREMIX 100 ML IV NR (20:00)
[2022-07-28] MEDS: LIDOCAINE HCL 4% CREAM 76GM TUBE TP SCH (20:56)
[2022-07-28] MEDS: FUROSEMIDE 40MG/4ML VIAL IVP SCH (21:00)
[2022-07-29] VITALS (7 sets, daily range): BP systolic 110–131; BP diastolic 59–85
[2022-07-29 06:36] LABS: INR 2.3
[2022-07-29] MEDS: INSULIN LISPRO 100 UNITS/ML SUBCUT SCH ×4 (06:58→21:00)
[2022-07-29] MEDS: BLOOD SUGAR DIAGNOSTIC STRIP TEST SCH ×4 (06:58→19:48)
[2022-07-29] MEDS: LEVOTHYROXINE SODIUM 100MCG TABLET PO SCH (06:58)
[2022-07-29 07:30] LABS: CHLORIDE 90 mEq/L (98-107)
[2022-07-29] MEDS ORDERED: POTASSIUM CHLORIDE 20MEQ TABLET SR PO NR (08:30)
[2022-07-29] MEDS: ENOXAPARIN 150MG/ML SYR SUBCUT SCH (09:24)
[2022-07-29] MEDS: AMIODARONE HCL 200 MG TABLET PO SCH ×2 (09:24→21:30)
[2022-07-29] MEDS: FAMOTIDINE 20MG TABLET PO SCH ×2 (09:24→21:31)
[2022-07-29] MEDS: FUROSEMIDE 40MG TABLET PO SCH ×2 (09:24→21:30)
[2022-07-29] MEDS: METOPROLOL TARTRATE 25MG TABLET PO SCH ×2 (09:25→21:30)
[2022-07-29 11:40] LABS: BG BASE EXCESS 15.8 mmol/L (-2.0-2.0); BG DEOXYHEMOGLOBIN 2.4 % (0.0-5.0); BG FRACTION INSPIRED OXYGEN 36; BG HCO3 ACT 42.8 mmol/L (22.0-26.0); BG METHEMOGLOBIN 0.2 % (0.0-1.5); BG OXYGEN SATURATION 97.6 % (92.0-98.5); BG OXYHEMOGLOBIN 96.4 % (94.0-97.0); BG PCO2 58.9 mmHg (35.0-45.0); BG PH 7.479 (7.350-7.450); BG SAMPLE SITE LEFT RADIAL; BG VENT MODE NASAL CANNULA
[2022-07-29] MEDS: BUDESONIDE 0.5MG/2ML NEB HHN SCH (21:16)
[2022-07-29] MEDS: LIDOCAINE HCL 4% CREAM 76GM TUBE TP SCH (21:30)
[2022-07-30 04:00] VITALS: BP 108/60
[2022-07-30] MEDS: BLOOD SUGAR DIAGNOSTIC STRIP TEST SCH ×4 (05:27→20:03)
[2022-07-30] MEDS: INSULIN LISPRO 100 UNITS/ML SUBCUT SCH ×4 (05:28→20:52)
[2022-07-30] MEDS: LEVOTHYROXINE SODIUM 100MCG TABLET PO SCH (06:01)
[2022-07-30 06:52] LABS: INR 2.5; PROTHROMBIN TIME 24.9 sec (9.6-11.0)
[2022-07-30 07:19] LABS: HEMATOCRIT 47.2 % (36.0-48.0); HEMOGLOBIN 15.4 g/dL (12.0-16.0); MEAN CORPUSCULAR HEMOGLOBIN 28.7 pg (28.0-32.0); MEAN CORPUSCULAR VOLUME 87.9 fL (81.0-99.0); PLATELET 265 x1000/uL (130-400); RED BLOOD CELL COUNT 5.37 mill/uL (4.2-5.4); RED CELL DISTRIBUTION WIDTH 16.2 % (11.6-14.6)
[2022-07-30 08:00] VITALS: BP_SYST 119; BP_SYST 120; BP_DIAS 45; BP_DIAS 88
[2022-07-30] MEDS: FUROSEMIDE 40MG TABLET PO SCH ×2 (09:08→20:50)
[2022-07-30] MEDS: AMIODARONE HCL 200 MG TABLET PO SCH ×2 (09:08→20:51)
[2022-07-30] MEDS: METOPROLOL TARTRATE 25MG TABLET PO SCH ×2 (09:09→20:50)
[2022-07-30] MEDS: BUDESONIDE 0.5MG/2ML NEB HHN SCH ×2 (09:17→21:09)
[2022-07-30 12:00] VITALS: BP 116/72
[2022-07-30 16:00] VITALS: BP 128/62
[2022-07-30] MEDS ORDERED: POTASSIUM CHLORIDE 20MEQ TABLET SR PO NR (17:00)
[2022-07-30] MEDS ORDERED: WARFARIN SODIUM 5MG TABLET PO NR (18:00)
[2022-07-30 20:00] VITALS: BP 112/81
[2022-07-30] MEDS: FAMOTIDINE 20MG TABLET PO SCH (20:50)
[2022-07-30] MEDS: LIDOCAINE HCL 4% CREAM 76GM TUBE TP SCH (20:50)
[2022-07-30] MEDS: IPRATROPIUM/ALBUTEROL 0.5-3(2.5)MG/3ML NEB HHN PRN (21:09)
[2022-07-31] VITALS: BP 107/85
[2022-07-31 04:00] VITALS: BP 110/79
[2022-07-31] MEDS: BLOOD SUGAR DIAGNOSTIC STRIP TEST SCH ×4 (05:45→20:47)
[2022-07-31] MEDS: LEVOTHYROXINE SODIUM 100MCG TABLET PO SCH (05:46)
[2022-07-31] MEDS: INSULIN LISPRO 100 UNITS/ML SUBCUT SCH ×4 (05:49→20:43)
[2022-07-31 06:35] LABS: INR 2.5
[2022-07-31 08:00] VITALS: BP 117/83
[2022-07-31] MEDS ORDERED: POTASSIUM CHLORIDE 20MEQ TABLET SR PO NR (09:00)
[2022-07-31] MEDS: METOPROLOL TARTRATE 25MG TABLET PO SCH ×2 (09:12→20:44)
[2022-07-31] MEDS: AMIODARONE HCL 200 MG TABLET PO SCH ×2 (09:12→20:44)
[2022-07-31] MEDS: FUROSEMIDE 40MG TABLET PO SCH ×2 (09:12→20:44)
[2022-07-31] MEDS: BUDESONIDE 0.5MG/2ML NEB HHN SCH (09:50)
[2022-07-31 12:00] VITALS: BP 92/71
[2022-07-31 16:30] VITALS: BP 127/92
[2022-07-31] MEDS: ONDANSETRON HCL 4MG/2ML INJ IV PRN (17:09)
[2022-07-31] MEDS: ONDANSETRON HCL 4MG TABLET PO PRN (17:28)
[2022-07-31] MEDS ORDERED: WARFARIN SODIUM 5MG TABLET PO NR (18:00)
[2022-07-31 20:00] VITALS: BP 129/80
[2022-07-31] MEDS ORDERED: NON FORMULARY PATIENT HOME MED XX SCH (20:15)
[2022-07-31] MEDS: FAMOTIDINE 20MG TABLET PO SCH (20:44)
[2022-07-31] MEDS: MELATONIN 3MG TABLET PO SCH (20:47)
[2022-08-01] VITALS: BP 104/72
[2022-08-01] MEDS: ONDANSETRON HCL 4MG TABLET PO PRN (01:10)
[2022-08-01] MEDS: LIDOCAINE HCL 4% CREAM 76GM TUBE TP SCH ×2 (01:11→21:29)
[2022-08-01 04:00] VITALS: BP_SYST 117; BP_SYST 125; BP_DIAS 62; BP_DIAS 84
[2022-08-01] MEDS: LEVOTHYROXINE SODIUM 100MCG TABLET PO SCH (05:48)
[2022-08-01] MEDS: INSULIN LISPRO 100 UNITS/ML SUBCUT SCH ×4 (05:49→21:27)
[2022-08-01] MEDS: BLOOD SUGAR DIAGNOSTIC STRIP TEST SCH ×4 (05:49→21:28)
[2022-08-01 07:38] LABS: INR 2.9
[2022-08-01 08:00] VITALS: BP 117/77
[2022-08-01] MEDS: POTASSIUM CHLORIDE 10MEQ TABLET SR PO SCH (09:37)
[2022-08-01] MEDS: FUROSEMIDE 40MG TABLET PO SCH ×2 (09:37→21:26)
[2022-08-01] MEDS: METOPROLOL TARTRATE 25MG TABLET PO SCH ×2 (09:37→21:00)
[2022-08-01] MEDS: AMIODARONE HCL 200 MG TABLET PO SCH ×2 (09:37→21:27)
[2022-08-01 12:00] VITALS: BP 112/77
[2022-08-01 16:03] VITALS: BP 117/62
[2022-08-01 20:00] VITALS: BP 111/77
[2022-08-01] MEDS: MELATONIN 3MG TABLET PO SCH (21:27)
[2022-08-01] MEDS: FAMOTIDINE 20MG TABLET PO SCH (21:28)
[2022-08-02] VITALS: BP 138/60
[2022-08-02 04:00] VITALS: BP 106/72
[2022-08-02] MEDS: BLOOD SUGAR DIAGNOSTIC STRIP TEST SCH ×4 (06:06→21:00)
[2022-08-02] MEDS: INSULIN LISPRO 100 UNITS/ML SUBCUT SCH ×4 (06:06→21:00)
[2022-08-02] MEDS: LEVOTHYROXINE SODIUM 100MCG TABLET PO SCH (06:07)
[2022-08-02 06:59] LABS: INR 2.7; PROTHROMBIN TIME 26.6 sec (9.6-11.0)
[2022-08-02 07:47] VITALS: BP 102/72
[2022-08-02] MEDS: AMIODARONE HCL 200 MG TABLET PO SCH ×2 (08:51→21:00)
[2022-08-02] MEDS: FUROSEMIDE 40MG TABLET PO SCH ×2 (08:51→21:00)
[2022-08-02] MEDS: METOPROLOL TARTRATE 25MG TABLET PO SCH ×2 (08:52→21:00)
[2022-08-02] MEDS: POTASSIUM CHLORIDE 10MEQ TABLET SR PO SCH (08:54)
[2022-08-02 12:00] VITALS: BP 112/67
[2022-08-02 16:00] VITALS: BP 100/58
[2022-08-02] MEDS ORDERED: WARFARIN SODIUM 3MG TABLET PO SCH (18:00)
[2022-08-02] MEDS: ONDANSETRON HCL 4MG TABLET PO PRN (19:37)
[2022-08-02 20:00] VITALS: BP 115/76
[2022-08-02] MEDS: LIDOCAINE HCL 4% CREAM 76GM TUBE TP SCH (21:00)
[2022-08-02] MEDS: FAMOTIDINE 20MG TABLET PO SCH (21:00)
[2022-08-02] MEDS: MELATONIN 3MG TABLET PO SCH (21:00)
[2022-08-03] VITALS: BP 130/68
[2022-08-03] MEDS: IPRATROPIUM/ALBUTEROL 0.5-3(2.5)MG/3ML NEB HHN PRN (00:39)
[2022-08-03 04:00] VITALS: BP 135/66
[2022-08-03] MEDS: INSULIN LISPRO 100 UNITS/ML SUBCUT SCH ×4 (06:26→20:41)
[2022-08-03] MEDS: BLOOD SUGAR DIAGNOSTIC STRIP TEST SCH ×4 (06:26→20:41)
[2022-08-03] MEDS: LEVOTHYROXINE SODIUM 100MCG TABLET PO SCH (06:34)
[2022-08-03 08:00] VITALS: BP 112/69
[2022-08-03 08:12] LABS: HEMOGLOBIN 14.9 g/dL (12.0-16.0); MEAN CORPUSCULAR HEMOGLOBIN 28.8 pg (28.0-32.0); MEAN CORPUSCULAR VOLUME 88.7 fL (81.0-99.0); PLATELET 249 x1000/uL (130-400); RED BLOOD CELL COUNT 5.19 mill/uL (4.2-5.4); RED CELL DISTRIBUTION WIDTH 16.3 % (11.6-14.6)
[2022-08-03] MEDS: POTASSIUM CHLORIDE 10MEQ TABLET SR PO SCH (08:37)
[2022-08-03] MEDS: FUROSEMIDE 40MG TABLET PO SCH ×2 (08:38→20:49)
[2022-08-03] MEDS: METOPROLOL TARTRATE 25MG TABLET PO SCH ×2 (08:38→20:49)
[2022-08-03] MEDS: AMIODARONE HCL 200 MG TABLET PO SCH ×2 (08:39→20:49)
[2022-08-03 09:19] LABS: INR 2.4
[2022-08-03 09:31] LABS: CHLORIDE 91 mEq/L (98-107)
[2022-08-03 09:41] LABS: PHOSPHORUS 3.4 mg/dL (2.5-4.9)
[2022-08-03 12:00] VITALS: BP 115/76
[2022-08-03] MEDS: ONDANSETRON HCL 4MG TABLET PO PRN ×2 (15:02→22:54)
[2022-08-03 16:00] VITALS: BP 109/67
[2022-08-03] MEDS ORDERED: WARFARIN SODIUM 3MG TABLET PO SCH (18:00)
[2022-08-03 20:00] VITALS: BP 151/83
[2022-08-03] MEDS: FAMOTIDINE 20MG TABLET PO SCH (20:49)
[2022-08-03] MEDS: MELATONIN 3MG TABLET PO SCH (20:49)
[2022-08-03] MEDS: LIDOCAINE HCL 4% CREAM 76GM TUBE TP SCH (20:54)
[2022-08-03] MEDS: MAGNESIUM/ALUMINUM HYDROXIDE/SIMETHICONE 30ML UDC PO PRN (22:38)
[2022-08-04] VITALS: BP 104/64
[2022-08-04 04:00] VITALS: BP 113/66
[2022-08-04] MEDS: BLOOD SUGAR DIAGNOSTIC STRIP TEST SCH ×4 (06:07→21:38)
[2022-08-04] MEDS: INSULIN LISPRO 100 UNITS/ML SUBCUT SCH ×4 (06:07→21:55)
[2022-08-04] MEDS: LEVOTHYROXINE SODIUM 100MCG TABLET PO SCH (06:28)
[2022-08-04 07:52] LABS: INR 2.1; PROTHROMBIN TIME 21.5 sec (9.6-11.0)
[2022-08-04 08:00] VITALS: BP 108/73
[2022-08-04] MEDS: AMIODARONE HCL 200 MG TABLET PO SCH ×2 (08:33→21:47)
[2022-08-04] MEDS: FUROSEMIDE 40MG TABLET PO SCH ×2 (08:33→21:34)
[2022-08-04] MEDS: POTASSIUM CHLORIDE 10MEQ TABLET SR PO SCH (08:33)
[2022-08-04] MEDS: METOPROLOL TARTRATE 25MG TABLET PO SCH ×2 (08:36→21:47)
[2022-08-04 12:00] VITALS: BP 117/63
[2022-08-04 16:00] VITALS: BP 111/73
[2022-08-04] MEDS ORDERED: WARFARIN SODIUM 4MG TABLET PO SCH (18:00)
[2022-08-04 20:00] VITALS: BP 113/88
[2022-08-04] MEDS: FAMOTIDINE 20MG TABLET PO SCH (21:33)
[2022-08-04] MEDS: MELATONIN 3MG TABLET PO SCH (21:33)
[2022-08-04] MEDS: LIDOCAINE HCL 4% CREAM 76GM TUBE TP SCH (21:35)
[2022-08-05] VITALS: BP 128/60
[2022-08-05 04:00] VITALS: BP 118/71
[2022-08-05] MEDS: LEVOTHYROXINE SODIUM 100MCG TABLET PO SCH (06:28)
[2022-08-05] MEDS: BLOOD SUGAR DIAGNOSTIC STRIP TEST SCH ×3 (06:38→21:46)
[2022-08-05] MEDS: INSULIN LISPRO 100 UNITS/ML SUBCUT SCH ×2 (06:38→21:00)
[2022-08-05 08:00] VITALS: BP 179/56
[2022-08-05 08:04] LABS: INR 1.8; PROTHROMBIN TIME 18.1 sec (9.6-11.0)
[2022-08-05] MEDS: AMIODARONE HCL 200 MG TABLET PO SCH ×2 (10:32→21:43)
[2022-08-05] MEDS: FUROSEMIDE 40MG TABLET PO SCH ×2 (10:33→21:43)
[2022-08-05] MEDS: METOPROLOL TARTRATE 25MG TABLET PO SCH ×2 (10:33→21:44)
[2022-08-05] MEDS: POTASSIUM CHLORIDE 10MEQ TABLET SR PO SCH (10:35)
[2022-08-05 12:00] VITALS: BP 109/70
[2022-08-05 16:00] VITALS: BP 115/64
[2022-08-05] MEDS ORDERED: WARFARIN SODIUM 4MG TABLET PO NR (18:00)
[2022-08-05 20:00] VITALS: BP 115/72
[2022-08-05] MEDS: LIDOCAINE HCL 4% CREAM 76GM TUBE TP SCH (21:00)
[2022-08-05] MEDS: MELATONIN 3MG TABLET PO SCH (21:42)
[2022-08-05] MEDS: FAMOTIDINE 20MG TABLET PO SCH (21:44)
[2022-08-05] MEDS: IPRATROPIUM/ALBUTEROL 0.5-3(2.5)MG/3ML NEB HHN PRN (22:35)
[2022-08-06] VITALS: BP 114/87
[2022-08-06] MEDS: MAGNESIUM/ALUMINUM HYDROXIDE/SIMETHICONE 30ML UDC PO PRN (03:11)
[2022-08-06 04:00] VITALS: BP 104/68
[2022-08-06] MEDS: LEVOTHYROXINE SODIUM 100MCG TABLET PO SCH (05:18)
[2022-08-06] MEDS: INSULIN LISPRO 100 UNITS/ML SUBCUT SCH ×2 (05:34→12:40)
[2022-08-06 06:57] LABS: INR 1.5; PROTHROMBIN TIME 15.2 sec (9.6-11.0)
[2022-08-06] MEDS: BLOOD SUGAR DIAGNOSTIC STRIP TEST SCH ×2 (07:25→12:46)
[2022-08-06 08:00] VITALS: BP 99/71
[2022-08-06] MEDS: POTASSIUM CHLORIDE 10MEQ TABLET SR PO SCH (09:00)
[2022-08-06] MEDS: FUROSEMIDE 40MG TABLET PO SCH (11:08)
[2022-08-06] MEDS: METOPROLOL TARTRATE 25MG TABLET PO SCH (11:08)
[2022-08-06] MEDS: AMIODARONE HCL 200 MG TABLET PO SCH (11:08)
[2022-08-06 12:00] VITALS: BP 121/66
[2022-08-06 14:47] VITALS: BP 121/66
[2022-08-06] MEDS ORDERED: WARFARIN SODIUM 5MG TABLET PO SCH (18:00)
== END 2022-08-06 15:51 | disposition home or self-care (01) | DRG 194 ==
LOC: ER 11:18 → EDBEDREQTM 13:39 → EDBEDREQ 13:39 → 8WST 16:56 → EDBEDREQTM 17:11 → EDBEDREQ 17:11 → ENRESERV 17:54 → 5EST 20:44 → 8WST 07-25 17:45
PROVIDERS: ADMIT Internal Medicine; ATTEND Internal Medicine
PROC: 02HV33Z Insertion of Infusion Device into Superior Vena Cava, Percutaneous Approach (ICD-10-PCS; principal; 2022-07-17)
PROC: B548ZZA Ultrasonography of Superior Vena Cava, Guidance (ICD-10-PCS; 2022-07-17)
PROC: 5A09357 Assistance with Respiratory Ventilation, Less than 24 Consecutive Hours, Continuous Positive Airway Pressure (ICD-10-PCS; 2022-07-22)
PROC: 5A09357 Assistance with Respiratory Ventilation, Less than 24 Consecutive Hours, Continuous Positive Airway Pressure (ICD-10-PCS; 2022-07-23)
DX: I11.0 Hypertensive heart disease with heart failure (principal); J96.21 Acute and chronic respiratory failure with hypoxia; E87.29 Other acidosis; I95.9 Hypotension, unspecified; E44.1 Mild protein-calorie malnutrition; Z99.81 Dependence on supplemental oxygen; Z79.01 Long term (current) use of anticoagulants; J44.1 Chronic obstructive pulmonary disease with (acute) exacerbation; I50.43 Acute on chronic combined systolic (congestive) and diastolic (congestive) heart failure; E66.2 Morbid (severe) obesity with alveolar hypoventilation; I48.91 Unspecified atrial fibrillation; E03.8 Other specified hypothyroidism; E11.9 Type 2 diabetes mellitus without complications; N39.0 Urinary tract infection, site not specified; Z68.45 Body mass index [BMI] 70 or greater, adult; E78.00 Pure hypercholesterolemia, unspecified; E87.6 Hypokalemia; G89.29 Other chronic pain; K59.00 Constipation, unspecified; M17.11 Unilateral primary osteoarthritis, right knee; F40.240 Claustrophobia; N95.0 Postmenopausal bleeding; N85.2 Hypertrophy of uterus; T50.1X5A Adverse effect of loop [high-ceiling] diuretics, initial encounter; Z28.310 Unvaccinated for COVID-19; Z71.3 Dietary counseling and surveillance; Z79.890 Hormone replacement therapy; Z86.73 Personal history of transient ischemic attack (TIA), and cerebral infarction without residual deficits; Z80.1 Family history of malignant neoplasm of trachea, bronchus and lung; Z91.14 Patient's other noncompliance with medication regimen; Z91.199 Patient's noncompliance with other medical treatment and regimen due to unspecified reason; Z87.891 Personal history of nicotine dependence; Z86.718 Personal history of other venous thrombosis and embolism; Z88.6 Allergy status to analgesic agent
CPT/HCPCS: 36415; 36573; 36600; 71045; 73560; 76830; 76856; 80048; 80053; 80061; 81003; 82375; 82550; 82553; 82805; 82962; 83036; 83735; 83880; 84100; 84132; 84439; 84443; 84484; 85025; 85027; 85379; 93005; 93306; 93970; 94640; 94660; 97110; 97116; 97162; 97166; 97530; 99291; A6261; C1725; C9113; J0282; J1160; J1650; J1815; J1940; J2405; J3480; J3490; J7060; J7626; Q0162; A4315

== ENCOUNTER 2022-09-09 13:34 | Inpatient (IN) | payer MEDICAID ==
[~2022-09-09] VITALS: Ht 162.6 cm; Wt 208.2 kg
[~2022-09-09 13:34] MED LIST changes: +AMI2 PO; +FURO80TA87 MT; +LEVO100T9 PO; +METO25TA6 PO; +SULF1TAB44 PO
[2022-09-09] MEDS ORDERED: METHYLPREDNISOLONE SOD SUCC 125 MG/2 ML VIAL IV STA (14:24)
[2022-09-09] MEDS ORDERED: ALBUTEROL (0.083%) 2.5MG/3ML NEB HHN STA (14:24)
[2022-09-09] MEDS ORDERED: IPRATROPIUM BROMIDE (0.02%) 0.5MG/2.5ML NEB HHN STA (14:24)
[2022-09-09 15:19] LABS: BG BASE EXCESS 8.7 mmol/L (-2.0-2.0); BG CARBOXYHEMOGLOBIN 1.7 % (0.5-1.5); BG DEOXYHEMOGLOBIN 2.7 % (0.0-5.0); BG FRACTION INSPIRED OXYGEN 44; BG HCO3 ACT 40.6 mmol/L (22.0-26.0); BG METHEMOGLOBIN 0.1 % (0.0-1.5); BG OXYGEN SATURATION 97.3 % (92.0-98.5); BG OXYHEMOGLOBIN 95.5 % (94.0-97.0); BG PCO2 100.3 mmHg (35.0-45.0); BG PH 7.225 (7.350-7.450); BG PO2 110.2 mmHg (75.0-100.0); BG SAMPLE SITE RIGHT RADIAL; BG TOTAL HEMOGLOBIN 14.2 g/dL (12.0-18.0); BG VENT MODE NASAL CANNULA
[2022-09-09 15:43] LABS: BASOPHILS % 0.2 % (0.0-2.0); HEMATOCRIT. 41.8 % (36.0-48.0); HEMOGLOBIN. 13.1 g/dL (12.0-16.0); LYMPHOCYTES % 7.1 % (20.0-50.0); MEAN CORPUSCULAR HEMOGLOBIN 28.4 pg (28.0-32.0); MEAN CORPUSCULAR VOLUME 90.4 fL (81.0-99.0); MEAN PLATELET VOLUME 7.5 fl (7.4-10.4); MONOCYTES % 6.1 % (2.0-8.0); NEUTROPHILS % 85.6 % (40.0-76.0); PLATELET 226 x1000/uL (130-400); RED BLOOD CELL COUNT 4.62 mill/uL (4.2-5.4); RED CELL DISTRIBUTION WIDTH 17.1 % (11.6-14.6)
[2022-09-09 15:52] LABS: CHLORIDE 101 mEq/L (98-107)
[2022-09-09] MEDS ORDERED: ACETAMINOPHEN 325MG TABLET PO PRN ×2 (17:15)
[2022-09-09] MEDS ORDERED: MAGNESIUM/ALUMINUM HYDROXIDE/SIMETHICONE 30ML UDC PO PRN ×2 (17:15→17:45)
[2022-09-09] MEDS ORDERED: DOCUSATE SODIUM 100MG CAPSULE PO PRN (17:15)
[2022-09-09] MEDS ORDERED: ONDANSETRON HCL 4MG/2ML INJ IV PRN ×2 (17:15→17:45)
[2022-09-09] MEDS ORDERED: IPRATROPIUM/ALBUTEROL 0.5-3(2.5)MG/3ML NEB HHN PRN (17:15)
[2022-09-09] MEDS ORDERED: CLONIDINE 0.1MG TABLET PO PRN (17:45)
[2022-09-09] MEDS ORDERED: KETOROLAC 15MG/ML VIAL IV PRN (17:45)
[2022-09-09 18:11] LABS: BG BASE EXCESS 7.4 mmol/L (-2.0-2.0); BG CARBOXYHEMOGLOBIN 1.7 % (0.5-1.5); BG DEOXYHEMOGLOBIN 4.8 % (0.0-5.0); BG FRACTION INSPIRED OXYGEN 40; BG HCO3 ACT 38.9 mmol/L (22.0-26.0); BG METHEMOGLOBIN 0.2 % (0.0-1.5); BG OXYGEN SATURATION 95.1 % (92.0-98.5); BG OXYHEMOGLOBIN 93.3 % (94.0-97.0); BG PCO2 94.5 mmHg (35.0-45.0); BG PH 7.232 (7.350-7.450); BG PO2 85.2 mmHg (75.0-100.0); BG SAMPLE SITE RIGHT RADIAL; BG TOTAL HEMOGLOBIN 14.5 g/dL (12.0-18.0); BG TOTAL RESPIRATORY RATE 25 b/min; BG VENT MODE MASK - BIPAP
[2022-09-09 18:22] LABS: D-DIMER 2.32 mg/L FEU (<0.50); INR 1.1; PROTHROMBIN TIME 11.6 sec (9.6-11.0)
[2022-09-09] MEDS: ENOXAPARIN 40MG/0.4ML SYR SUBCUT SCH (18:27)
[2022-09-09] MEDS ORDERED: AZITHROMYCIN 500 MG in DEXT 5% WATER 250 ML IV SCH (20:00)
[2022-09-09] MEDS: IPRATROPIUM/ALBUTEROL 0.5-3(2.5)MG/3ML NEB HHN SCH (20:22)
[2022-09-09] MEDS: AMIODARONE HCL 200 MG TABLET PO SCH (21:00)
[2022-09-09] MEDS: METOPROLOL TARTRATE 25MG TABLET PO SCH (21:00)
[2022-09-09] MEDS: FAMOTIDINE 20MG TABLET PO SCH (21:00)
[2022-09-09] MEDS: GUAIFENESIN 600MG ER TABLET PO SCH (21:00)
[2022-09-09] MEDS: METHYLPREDNISOLONE SOD SUCC 125 MG/2 ML VIAL IV SCH (22:01)
[2022-09-10] VITALS (8 sets, daily range): BP systolic 135–150; BP diastolic 69–103
[2022-09-10] MEDS: IPRATROPIUM/ALBUTEROL 0.5-3(2.5)MG/3ML NEB HHN SCH ×5 (04:26→21:14)
[2022-09-10] MEDS: ENOXAPARIN 40MG/0.4ML SYR SUBCUT SCH ×2 (06:54→17:28)
[2022-09-10] MEDS: METHYLPREDNISOLONE SOD SUCC 125 MG/2 ML VIAL IV SCH ×3 (06:54→21:51)
[2022-09-10] MEDS: AMIODARONE HCL 200 MG TABLET PO SCH ×2 (08:55→21:28)
[2022-09-10] MEDS: GUAIFENESIN 600MG ER TABLET PO SCH ×2 (08:55→21:28)
[2022-09-10] MEDS: METOPROLOL TARTRATE 25MG TABLET PO SCH ×2 (08:55→21:33)
[2022-09-10] MEDS: LEVOTHYROXINE SODIUM 100MCG TABLET PO SCH (08:56)
[2022-09-10 10:58] LABS: BG CARBOXYHEMOGLOBIN 1.2 % (0.5-1.5); BG DEOXYHEMOGLOBIN 2.3 % (0.0-5.0); BG FRACTION INSPIRED OXYGEN 50; BG HCO3 ACT 39.1 mmol/L (22.0-26.0); BG METHEMOGLOBIN 0.3 % (0.0-1.5); BG OXYGEN SATURATION 97.7 % (92.0-98.5); BG OXYHEMOGLOBIN 96.2 % (94.0-97.0); BG PCO2 85.8 mmHg (35.0-45.0); BG PH 7.277 (7.350-7.450); BG PO2 106.2 mmHg (75.0-100.0); BG SAMPLE SITE RIGHT RADIAL; BG TOTAL HEMOGLOBIN 13.4 g/dL (12.0-18.0); BG TOTAL RESPIRATORY RATE 18 b/min; BG VENT MODE MASK - BIPAP
[2022-09-10 17:22] LABS: HEMATOCRIT. 38.1 % (36.0-48.0); HEMOGLOBIN. 12.2 g/dL (12.0-16.0); MEAN CORPUSCULAR VOLUME 90.3 fL (81.0-99.0); MEAN PLATELET VOLUME 7.8 fl (7.4-10.4); PLATELET 232 x1000/uL (130-400); RED BLOOD CELL COUNT 4.22 mill/uL (4.2-5.4); RED CELL DISTRIBUTION WIDTH 16.8 % (11.6-14.6)
[2022-09-10 17:29] LABS: CHLORIDE 99 mEq/L (98-107)
[2022-09-10 17:44] LABS: T4 FREE 0.53 ng/dL (0.76-1.46)
[2022-09-10 18:21] LABS: PLATELET ESTIMATE NORMAL
[2022-09-10] MEDS ORDERED: DEXTROSE 50% WATER 50ML SYRINGE IV PRN (18:30)
[2022-09-10] MEDS: BLOOD SUGAR DIAGNOSTIC STRIP TEST SCH (20:24)
[2022-09-10] MEDS: INSULIN LISPRO 100 UNITS/ML SUBCUT SCH (20:37)
[2022-09-10] MEDS: FAMOTIDINE 20MG TABLET PO SCH (21:29)
[2022-09-11] MEDS ORDERED: AZITHROMYCIN 500 MG in DEXT 5% WATER 250 ML IV SCH ×2
[2022-09-11] MEDS: IPRATROPIUM/ALBUTEROL 0.5-3(2.5)MG/3ML NEB HHN SCH ×5 (00:39→21:15)
[2022-09-11] MEDS: METHYLPREDNISOLONE SOD SUCC 125 MG/2 ML VIAL IV SCH ×3 (05:45→12:53)
[2022-09-11] MEDS: ENOXAPARIN 40MG/0.4ML SYR SUBCUT SCH ×2 (05:51→17:33)
[2022-09-11] MEDS: BLOOD SUGAR DIAGNOSTIC STRIP TEST SCH ×4 (07:30→21:41)
[2022-09-11 08:28] VITALS: BP 139/89
[2022-09-11] MEDS: LEVOTHYROXINE SODIUM 100MCG TABLET PO SCH (08:49)
[2022-09-11] MEDS: INSULIN LISPRO 100 UNITS/ML SUBCUT SCH ×4 (08:49→21:49)
[2022-09-11] MEDS: GUAIFENESIN 600MG ER TABLET PO SCH ×2 (08:50→21:36)
[2022-09-11] MEDS: AMIODARONE HCL 200 MG TABLET PO SCH ×2 (08:50→21:36)
[2022-09-11] MEDS: METOPROLOL TARTRATE 25MG TABLET PO SCH ×2 (08:51→21:41)
[2022-09-11 10:57] LABS: BG CARBOXYHEMOGLOBIN 1.1 % (0.5-1.5); BG DEOXYHEMOGLOBIN 6.2 % (0.0-5.0); BG FRACTION INSPIRED OXYGEN 35; BG HCO3 ACT 36.9 mmol/L (22.0-26.0); BG OXYGEN SATURATION 93.7 % (92.0-98.5); BG OXYHEMOGLOBIN 92.7 % (94.0-97.0); BG PCO2 66.6 mmHg (35.0-45.0); BG PH 7.361 (7.350-7.450); BG PO2 69.9 mmHg (75.0-100.0); BG SAMPLE SITE LEFT RADIAL; BG TOTAL HEMOGLOBIN 13.2 g/dL (12.0-18.0); BG VENT MODE NASAL CANNULA
[2022-09-11 11:40] VITALS: BP 108/72
[2022-09-11 12:01] VITALS: BP 112/63
[2022-09-11] MEDS ORDERED: ONDANSETRON HCL 4MG TABLET PO PRN (14:30)
[2022-09-11 15:49] VITALS: BP 136/63
[2022-09-11 16:00] VITALS: BP 111/60
[2022-09-11] MEDS: PREDNISONE 20MG TABLET PO SCH (17:33)
[2022-09-11] MEDS: GUAIFENESIN 200MG/10ML SUGAR FREE UDC PO PRN (17:33)
[2022-09-11] MEDS ORDERED: BACLOFEN 10MG TABLET PO NR ×2 (18:15→20:00)
[2022-09-11] MEDS: FAMOTIDINE 20MG TABLET PO SCH (21:36)
[2022-09-11] MEDS: AZITHROMYCIN 500 MG TABLET PO SCH (21:44)
[2022-09-11] MEDS: THROAT LOZENGES-BENZOCAINE/MENTH/CETYLPYRD CL LOZENGES MM PRN (21:51)
[2022-09-11 22:00] VITALS: BP 126/89
[2022-09-12] MEDS: IPRATROPIUM/ALBUTEROL 0.5-3(2.5)MG/3ML NEB HHN SCH ×3 (00:40→09:43)
[2022-09-12 04:00] VITALS: BP 132/83
[2022-09-12 06:34] LABS: HEMATOCRIT 39.3 % (36.0-48.0); HEMOGLOBIN 12.3 g/dL (12.0-16.0); MEAN CORPUSCULAR HEMOGLOBIN 28.7 pg (28.0-32.0); MEAN CORPUSCULAR VOLUME 91.6 fL (81.0-99.0); PLATELET 275 x1000/uL (130-400); RED BLOOD CELL COUNT 4.29 mill/uL (4.2-5.4); RED CELL DISTRIBUTION WIDTH 17.8 % (11.6-14.6)
[2022-09-12] MEDS: ENOXAPARIN 40MG/0.4ML SYR SUBCUT SCH (07:05)
[2022-09-12 08:00] VITALS: BP 110/77
[2022-09-12] MEDS: INSULIN LISPRO 100 UNITS/ML SUBCUT SCH ×2 (08:00→13:00)
[2022-09-12] MEDS: GUAIFENESIN 600MG ER TABLET PO SCH (08:22)
[2022-09-12] MEDS: METOPROLOL TARTRATE 25MG TABLET PO SCH (08:22)
[2022-09-12] MEDS: AMIODARONE HCL 200 MG TABLET PO SCH (08:22)
[2022-09-12] MEDS: AZITHROMYCIN 500 MG TABLET PO SCH (08:22)
[2022-09-12] MEDS: BLOOD SUGAR DIAGNOSTIC STRIP TEST SCH ×2 (08:23→13:05)
[2022-09-12] MEDS: THROAT LOZENGES-BENZOCAINE/MENTH/CETYLPYRD CL LOZENGES MM PRN ×2 (08:25→15:33)
[2022-09-12] MEDS: LEVOTHYROXINE SODIUM 100MCG TABLET PO SCH (08:28)
[2022-09-12] MEDS: PREDNISONE 20MG TABLET PO SCH (08:28)
[2022-09-12] MEDS ORDERED: P20 MT (09:54)
[2022-09-12] MEDS ORDERED: AZIT500T8 MT (09:54)
[2022-09-12] MEDS ORDERED: SYN150 MT (09:54)
[2022-09-12 10:00] VITALS: BP 107/87
[2022-09-12] MEDS ORDERED: ACETYLCYSTEINE 100MG/ML 10% VIAL 4ML INH SCH (10:00)
[2022-09-12 10:11] LABS: BG BASE EXCESS 11.5 mmol/L (-2.0-2.0); BG CARBOXYHEMOGLOBIN 1.1 % (0.5-1.5); BG DEOXYHEMOGLOBIN 4.8 % (0.0-5.0); BG FRACTION INSPIRED OXYGEN 44; BG HCO3 ACT 41.4 mmol/L (22.0-26.0); BG METHEMOGLOBIN 0.3 % (0.0-1.5); BG OXYGEN SATURATION 95.1 % (92.0-98.5); BG OXYHEMOGLOBIN 93.8 % (94.0-97.0); BG PCO2 84.9 mmHg (35.0-45.0); BG PH 7.306 (7.350-7.450); BG PO2 79.9 mmHg (75.0-100.0); BG SAMPLE SITE RIGHT RADIAL; BG TOTAL HEMOGLOBIN 13.1 g/dL (12.0-18.0); BG VENT MODE NASAL CANNULA
[2022-09-12 12:00] VITALS: BP 107/87
[2022-09-12] MEDS: GUAIFENESIN 200MG/10ML SUGAR FREE UDC PO PRN (13:57)
[2022-09-12 14:00] VITALS: BP 117/97
[2022-09-12 14:24] VITALS: BP 117/97
== END 2022-09-12 17:15 | disposition home or self-care (01) | DRG 140 ==
LOC: ER 13:34 → EDBEDREQ 14:29 → EDBEDREQTM 15:34 → EDBEDREQ 15:34 → EDBEDREQSVC 16:13 → ENRESERV 23:27 → 5EST 23:48
PROVIDERS: ADMIT Internal Medicine; ATTEND Internal Medicine
PROC: 5A09357 Assistance with Respiratory Ventilation, Less than 24 Consecutive Hours, Continuous Positive Airway Pressure (ICD-10-PCS; principal; 2022-09-09)
DX: J44.1 Chronic obstructive pulmonary disease with (acute) exacerbation (principal); J96.21 Acute and chronic respiratory failure with hypoxia; G93.40 Encephalopathy, unspecified; I50.33 Acute on chronic diastolic (congestive) heart failure; E44.1 Mild protein-calorie malnutrition; J96.22 Acute and chronic respiratory failure with hypercapnia; I11.0 Hypertensive heart disease with heart failure; I48.91 Unspecified atrial fibrillation; H40.9 Unspecified glaucoma; E11.9 Type 2 diabetes mellitus without complications; E03.9 Hypothyroidism, unspecified; E66.2 Morbid (severe) obesity with alveolar hypoventilation; Z80.1 Family history of malignant neoplasm of trachea, bronchus and lung; Z80.42 Family history of malignant neoplasm of prostate; Z86.718 Personal history of other venous thrombosis and embolism; Z87.891 Personal history of nicotine dependence; Z28.310 Unvaccinated for COVID-19; Z88.6 Allergy status to analgesic agent; Z68.45 Body mass index [BMI] 70 or greater, adult; I69.351 Hemiplegia and hemiparesis following cerebral infarction affecting right dominant side; Z99.81 Dependence on supplemental oxygen
CPT/HCPCS: 36415; 36600; 71045; 80048; 80053; 82375; 82805; 82962; 83880; 84439; 84443; 84484; 85025; 85027; 85379; 93005; 93970; 94640; 94660; 97162; 99291; J0456; J1650; J1815; J2930; J7060; J7512; Q0162

== ENCOUNTER 2022-10-17 12:51 | Inpatient (IN) | payer MEDICAID ==
[~2022-10-17] VITALS: Ht 172.7 cm; Wt 226.3 kg
[~2022-10-17 12:51] MED LIST changes: +AZIT500T8 MT; -LEVO100T9 PO; +P20 MT; +SYN150 MT; -TRAM50TA3 MT
[2022-10-17] MEDS ORDERED: ACETAMINOPHEN 650MG/20.3ML UDC PO ONE (13:30)
[2022-10-17 14:21] LABS: CHLORIDE 97 mEq/L (98-107)
[2022-10-17 14:23] LABS: BASOPHILS % 0.6 % (0.0-2.0); EOSINOPHILS % 0.2 % (0.0-5.0); HEMATOCRIT. 45.9 % (36.0-48.0); HEMOGLOBIN. 14.4 g/dL (12.0-16.0); LYMPHOCYTES % 16.5 % (20.0-50.0); MEAN CORPUSCULAR HEMOGLOBIN 28.4 pg (28.0-32.0); MEAN CORPUSCULAR VOLUME 90.4 fL (81.0-99.0); MEAN PLATELET VOLUME 8.4 fl (7.4-10.4); MONOCYTES % 8.9 % (2.0-8.0); NEUTROPHILS % 73.8 % (40.0-76.0); PLATELET 285 x1000/uL (130-400); RED BLOOD CELL COUNT 5.08 mill/uL (4.2-5.4); RED CELL DISTRIBUTION WIDTH 17.6 % (11.6-14.6)
[2022-10-17 14:35] LABS: INR 1.3; PROTHROMBIN TIME 13.3 sec (9.6-11.0)
[2022-10-17 16:40] LABS: BG BASE EXCESS 4.1 mmol/L (-2.0-2.0); BG CARBOXYHEMOGLOBIN 1.7 % (0.5-1.5); BG DEOXYHEMOGLOBIN 4.4 % (0.0-5.0); BG FRACTION INSPIRED OXYGEN 38; BG HCO3 ACT 34.7 mmol/L (22.0-26.0); BG METHEMOGLOBIN 0.3 % (0.0-1.5); BG OXYGEN SATURATION 95.5 % (92.0-98.5); BG OXYHEMOGLOBIN 93.6 % (94.0-97.0); BG PCO2 83.1 mmHg (35.0-45.0); BG PH 7.239 (7.350-7.450); BG PO2 91.7 mmHg (75.0-100.0); BG SAMPLE SITE RIGHT RADIAL; BG VENT MODE NASAL CANNULA
[2022-10-17] MEDS ORDERED: DOCUSATE SODIUM 100MG CAPSULE PO PRN (17:45)
[2022-10-17] MEDS ORDERED: LEVOFLOXACIN 500MG PREMIX 100 ML IV SCH (17:45)
[2022-10-17] MEDS ORDERED: NITROGLYCERIN 0.4MG TABLET SL SL PRN (17:45)
[2022-10-17] MEDS ORDERED: FUROSEMIDE 100MG/10ML VIAL IVP ONE (17:45)
[2022-10-17] MEDS ORDERED: MAGNESIUM/ALUMINUM HYDROXIDE/SIMETHICONE 30ML UDC PO PRN (17:45)
[2022-10-17] MEDS ORDERED: FUROSEMIDE 40MG/4 ML UDC PO NR (17:45)
[2022-10-17] MEDS ORDERED: GUAIFENESIN 200MG/10ML SUGAR FREE UDC PO PRN (17:45)
[2022-10-17] MEDS ORDERED: ACETAMINOPHEN 325MG TABLET PO PRN (17:45)
[2022-10-17] MEDS ORDERED: IPRATROPIUM/ALBUTEROL 0.5-3(2.5)MG/3ML NEB NEB PRN (17:45)
[2022-10-17] MEDS ORDERED: FUROSEMIDE 40MG/4ML VIAL IVP SCH (18:00)
[2022-10-17] MEDS: METHYLPREDNISOLONE SOD SUCC 125 MG/2 ML VIAL IV SCH (18:00)
[2022-10-17] MEDS: ENOXAPARIN 40MG/0.4ML SYR SUBCUT SCH (18:00)
[2022-10-17] MEDS ORDERED: METHYLPREDNISOLONE SOD SUCC 125 MG/2 ML VIAL IV SCH (18:00)
[2022-10-17] MEDS: CARVEDILOL 3.125 MG TABLET PO SCH (18:00)
[2022-10-17 19:03] LABS: T4 FREE 0.32 ng/dL (0.76-1.46)
[2022-10-17 19:21] LABS: VITAMIN B12 SERUM 709 pg/mL (211-911)
[2022-10-17] MEDS: IPRATROPIUM/ALBUTEROL 0.5-3(2.5)MG/3ML NEB HHN SCH (20:15)
[2022-10-17] MEDS ORDERED: FAMOTIDINE 20MG TABLET PO SCH (21:00)
[2022-10-17] MEDS: LEVOFLOXACIN 750MG PREMIX 150 ML IV SCH ×2 (21:00→21:06)
[2022-10-17] MEDS ORDERED: ZOLPIDEM TARTRATE 5MG TABLET PO PRN (21:00)
[2022-10-17] MEDS: SPIRONOLACTONE 25MG TABLET PO SCH (21:05)
[2022-10-17] MEDS: ASCORBIC ACID 500 MG TABLET PO SCH (21:06)
[2022-10-18] VITALS (7 sets, daily range): BP systolic 104–157; BP diastolic 31–119
[2022-10-18] MEDS: IPRATROPIUM/ALBUTEROL 0.5-3(2.5)MG/3ML NEB HHN SCH ×2 (00:43→04:43)
[2022-10-18] MEDS: METHYLPREDNISOLONE SOD SUCC 125 MG/2 ML VIAL IV SCH ×2 (02:02→12:52)
[2022-10-18 05:32] LABS: BASOPHILS % 0.2 % (0.0-2.0); EOSINOPHILS % 0.1 % (0.0-5.0); HEMATOCRIT. 42.9 % (36.0-48.0); HEMOGLOBIN. 13.6 g/dL (12.0-16.0); LYMPHOCYTES % 8.4 % (20.0-50.0); MEAN CORPUSCULAR HEMOGLOBIN 28.7 pg (28.0-32.0); MEAN CORPUSCULAR VOLUME 90.8 fL (81.0-99.0); MEAN PLATELET VOLUME 7.7 fl (7.4-10.4); MONOCYTES % 2.6 % (2.0-8.0); NEUTROPHILS % 88.7 % (40.0-76.0); PLATELET 235 x1000/uL (130-400); RED BLOOD CELL COUNT 4.73 mill/uL (4.2-5.4)
[2022-10-18 05:40] LABS: CHLORIDE 98 mEq/L (98-107)
[2022-10-18 05:51] LABS: CREATINE KINASE 308 IU/L (26-192); CREATINE KINASE MB FRACTION 6.6 ng/mL (0.5-3.6); PHOSPHORUS 5.5 mg/dL (2.5-4.9)
[2022-10-18] MEDS: FUROSEMIDE 40MG/4ML VIAL IVP SCH ×3 (06:50→18:12)
[2022-10-18] MEDS: CARVEDILOL 3.125 MG TABLET PO SCH ×2 (06:51→18:08)
[2022-10-18] MEDS: ENOXAPARIN 40MG/0.4ML SYR SUBCUT SCH ×2 (06:53→18:13)
[2022-10-18 09:35] LABS: BG BASE EXCESS 5.9 mmol/L (-2.0-2.0); BG CARBOXYHEMOGLOBIN 0.3 % (0.5-1.5); BG DEOXYHEMOGLOBIN 0.4 % (0.0-5.0); BG HCO3 ACT 34.9 mmol/L (22.0-26.0); BG METHEMOGLOBIN 0.3 % (0.0-1.5); BG OXYGEN SATURATION 99.6 % (92.0-98.5); BG PCO2 72.3 mmHg (35.0-45.0); BG PH 7.301 (7.350-7.450); BG PO2 348.2 mmHg (75.0-100.0); BG SAMPLE SITE RIGHT RADIAL; BG VENT MODE MASK - BIPAP
[2022-10-18] MEDS ORDERED: IPRATROPIUM BROMIDE (0.02%) 0.5MG/2.5ML NEB HHN PRN (10:15)
[2022-10-18] MEDS ORDERED: ALBUTEROL (0.083%) 2.5MG/3ML NEB HHN PRN (10:15)
[2022-10-18] MEDS: SPIRONOLACTONE 25MG TABLET PO SCH ×2 (12:53→20:51)
[2022-10-18] MEDS: ASCORBIC ACID 500 MG TABLET PO SCH ×2 (12:53→20:51)
[2022-10-18] MEDS: ZINC SULFATE 220 MG ( 50 ) CAPSULE PO SCH (12:53)
[2022-10-18] MEDS: KETOROLAC 15MG/ML VIAL IV PRN ×2 (12:54→20:52)
[2022-10-18] MEDS: IPRATROPIUM BROMIDE (0.02%) 0.5MG/2.5ML NEB HHN SCH ×3 (13:10→20:35)
[2022-10-18] MEDS: ALBUTEROL (0.083%) 2.5MG/3ML NEB HHN SCH ×3 (13:11→20:35)
[2022-10-18] MEDS ORDERED: DEXTROSE 50% WATER 50ML SYRINGE IV PRN (14:00)
[2022-10-18] MEDS: LEVOTHYROXINE SODIUM 200MCG TABLET PO SCH (16:27)
[2022-10-18] MEDS: INSULIN LISPRO 100 UNITS/ML SUBCUT SCH ×2 (18:00→21:28)
[2022-10-18] MEDS: BLOOD SUGAR DIAGNOSTIC STRIP TEST SCH ×2 (18:23→20:51)
[2022-10-18] MEDS ORDERED: LEVOFLOXACIN 750MG PREMIX 150 ML IV SCH (21:00)
[2022-10-19] VITALS (8 sets, daily range): BP systolic 109–147; BP diastolic 70–96
[2022-10-19] MEDS: ALBUTEROL (0.083%) 2.5MG/3ML NEB HHN SCH ×5 (03:30→21:21)
[2022-10-19] MEDS: KETOROLAC 15MG/ML VIAL IV PRN (04:10)
[2022-10-19] MEDS: ENOXAPARIN 40MG/0.4ML SYR SUBCUT SCH ×2 (06:26→18:22)
[2022-10-19] MEDS: CARVEDILOL 3.125 MG TABLET PO SCH ×2 (06:30→18:23)
[2022-10-19] MEDS: FAMOTIDINE 20MG TABLET PO SCH (08:18)
[2022-10-19] MEDS: ZINC SULFATE 220 MG ( 50 ) CAPSULE PO SCH (08:18)
[2022-10-19] MEDS: LEVOTHYROXINE SODIUM 200MCG TABLET PO SCH (08:18)
[2022-10-19] MEDS: PREDNISONE 20MG TABLET PO SCH (08:18)
[2022-10-19] MEDS: SPIRONOLACTONE 25MG TABLET PO SCH ×2 (08:21→21:41)
[2022-10-19] MEDS: BLOOD SUGAR DIAGNOSTIC STRIP TEST SCH ×4 (08:24→21:47)
[2022-10-19] MEDS: ASCORBIC ACID 500 MG TABLET PO SCH ×2 (08:25→21:40)
[2022-10-19] MEDS: INSULIN LISPRO 100 UNITS/ML SUBCUT SCH ×4 (08:27→21:47)
[2022-10-19] MEDS: BUDESONIDE 0.5MG/2ML NEB HHN SCH ×2 (09:08→21:20)
[2022-10-19] MEDS: IPRATROPIUM BROMIDE (0.02%) 0.5MG/2.5ML NEB HHN SCH ×4 (09:08→21:20)
[2022-10-19] MEDS: FUROSEMIDE 40MG/4ML VIAL IVP SCH (18:00)
[2022-10-20] VITALS (8 sets, daily range): BP systolic 87–155; BP diastolic 58–109
[2022-10-20] MEDS: ALBUTEROL (0.083%) 2.5MG/3ML NEB HHN SCH ×6 (00:57→20:15)
[2022-10-20] MEDS: IPRATROPIUM BROMIDE (0.02%) 0.5MG/2.5ML NEB HHN SCH ×6 (00:57→20:15)
[2022-10-20] MEDS: CARVEDILOL 3.125 MG TABLET PO SCH ×3 (06:00→19:00)
[2022-10-20] MEDS: FUROSEMIDE 40MG/4ML VIAL IVP SCH ×2 (06:00→19:01)
[2022-10-20] MEDS: ENOXAPARIN 40MG/0.4ML SYR SUBCUT SCH ×2 (06:51→19:00)
[2022-10-20] MEDS: BLOOD SUGAR DIAGNOSTIC STRIP TEST SCH ×4 (07:30→20:37)
[2022-10-20] MEDS ORDERED: LIDOCAINE HCL/PF 1% 10 MG/ML 5ML VIAL ONE (07:48)
[2022-10-20] MEDS: ASCORBIC ACID 500 MG TABLET PO SCH ×2 (10:24→20:37)
[2022-10-20] MEDS: FAMOTIDINE 20MG TABLET PO SCH (10:24)
[2022-10-20] MEDS: PREDNISONE 20MG TABLET PO SCH (10:24)
[2022-10-20] MEDS: ZINC SULFATE 220 MG ( 50 ) CAPSULE PO SCH (10:25)
[2022-10-20] MEDS: INSULIN LISPRO 100 UNITS/ML SUBCUT SCH ×4 (10:49→20:37)
[2022-10-20] MEDS: LEVOTHYROXINE SODIUM 200MCG TABLET PO SCH (11:02)
[2022-10-20] MEDS: SPIRONOLACTONE 25MG TABLET PO SCH ×2 (11:18→20:36)
[2022-10-20] MEDS: BUDESONIDE 0.5MG/2ML NEB HHN SCH ×2 (11:42→20:15)
[2022-10-21] VITALS (12 sets, daily range): BP systolic 102–140; BP diastolic 46–103
[2022-10-21] MEDS: IPRATROPIUM BROMIDE (0.02%) 0.5MG/2.5ML NEB HHN SCH ×7 (00:15→20:35)
[2022-10-21] MEDS: ALBUTEROL (0.083%) 2.5MG/3ML NEB HHN SCH ×7 (00:16→20:35)
[2022-10-21] MEDS: BUDESONIDE 0.5MG/2ML NEB HHN SCH ×3 (00:17→20:35)
[2022-10-21] MEDS: FUROSEMIDE 40MG/4ML VIAL IVP SCH ×2 (05:11→18:04)
[2022-10-21] MEDS: ENOXAPARIN 40MG/0.4ML SYR SUBCUT SCH ×2 (05:11→18:05)
[2022-10-21] MEDS: CARVEDILOL 3.125 MG TABLET PO SCH ×2 (05:12→18:04)
[2022-10-21] MEDS: BLOOD SUGAR DIAGNOSTIC STRIP TEST SCH ×4 (07:30→20:41)
[2022-10-21] MEDS: PREDNISONE 20MG TABLET PO SCH (09:38)
[2022-10-21] MEDS: ZINC SULFATE 220 MG ( 50 ) CAPSULE PO SCH (09:38)
[2022-10-21] MEDS: ASCORBIC ACID 500 MG TABLET PO SCH ×2 (09:38→20:40)
[2022-10-21] MEDS: FAMOTIDINE 20MG TABLET PO SCH (09:38)
[2022-10-21] MEDS: LEVOTHYROXINE SODIUM 200MCG TABLET PO SCH (09:38)
[2022-10-21] MEDS: SPIRONOLACTONE 25MG TABLET PO SCH ×2 (09:41→20:41)
[2022-10-21] MEDS: INSULIN LISPRO 100 UNITS/ML SUBCUT SCH ×4 (09:42→20:40)
[2022-10-21] MEDS ORDERED: SYN200 PO (11:28)
[2022-10-21] MEDS ORDERED: SPIR25TA PO (11:28)
[2022-10-21] MEDS ORDERED: AZIT500T8 MT (11:28)
[2022-10-21] MEDS ORDERED: P20 PO (11:28)
[2022-10-21] MEDS ORDERED: FURO80TA87 MT (11:28)
[2022-10-21] MEDS ORDERED: COR3 PO (11:28)
[2022-10-21] MEDS: ONDANSETRON HCL 4MG/2ML INJ IV PRN (15:59)
[2022-10-21] MEDS: CLONIDINE 0.1MG TABLET PO PRN (17:31)
[2022-10-22] VITALS (12 sets, daily range): BP systolic 112–140; BP diastolic 59–104
[2022-10-22] MEDS: IPRATROPIUM BROMIDE (0.02%) 0.5MG/2.5ML NEB HHN SCH ×5 (03:27→20:17)
[2022-10-22] MEDS: ALBUTEROL (0.083%) 2.5MG/3ML NEB HHN SCH ×3 (03:27→12:07)
[2022-10-22] MEDS: FUROSEMIDE 40MG/4ML VIAL IVP SCH ×2 (07:09→17:04)
[2022-10-22] MEDS: LEVOTHYROXINE SODIUM 200MCG TABLET PO SCH ×2 (07:09→09:35)
[2022-10-22] MEDS: ENOXAPARIN 40MG/0.4ML SYR SUBCUT SCH ×2 (07:09→17:04)
[2022-10-22] MEDS: CARVEDILOL 3.125 MG TABLET PO SCH ×2 (07:10→17:10)
[2022-10-22] MEDS: BLOOD SUGAR DIAGNOSTIC STRIP TEST SCH ×4 (07:26→21:05)
[2022-10-22] MEDS: INSULIN LISPRO 100 UNITS/ML SUBCUT SCH ×4 (07:26→21:04)
[2022-10-22] MEDS: PREDNISONE 20MG TABLET PO SCH (09:35)
[2022-10-22] MEDS: FAMOTIDINE 20MG TABLET PO SCH (09:35)
[2022-10-22] MEDS: ASCORBIC ACID 500 MG TABLET PO SCH ×2 (09:35→21:05)
[2022-10-22] MEDS: ZINC SULFATE 220 MG ( 50 ) CAPSULE PO SCH (09:35)
[2022-10-22] MEDS: ONDANSETRON HCL 4MG/2ML INJ IV PRN (09:35)
[2022-10-22] MEDS: SPIRONOLACTONE 25MG TABLET PO SCH ×2 (09:35→21:05)
[2022-10-22] MEDS ORDERED: IPRATROPIUM BROMIDE (0.02%) 0.5MG/2.5ML NEB HHN PRN (14:30)
[2022-10-22] MEDS: CLONIDINE 0.1MG TABLET PO PRN (14:59)
[2022-10-23] VITALS (8 sets, daily range): BP systolic 104–155; BP diastolic 56–85
[2022-10-23] MEDS: ACETAMINOPHEN 325MG TABLET PO PRN ×2 (00:22→14:35)
[2022-10-23] MEDS: IPRATROPIUM BROMIDE (0.02%) 0.5MG/2.5ML NEB HHN SCH ×3 (02:30→14:30)
[2022-10-23] MEDS: FUROSEMIDE 40MG/4ML VIAL IVP SCH ×2 (06:08→17:11)
[2022-10-23] MEDS: ENOXAPARIN 40MG/0.4ML SYR SUBCUT SCH ×2 (06:08→17:24)
[2022-10-23] MEDS: CARVEDILOL 3.125 MG TABLET PO SCH ×2 (06:23→17:11)
[2022-10-23] MEDS: BLOOD SUGAR DIAGNOSTIC STRIP TEST SCH ×3 (07:30→16:49)
[2022-10-23] MEDS: INSULIN LISPRO 100 UNITS/ML SUBCUT SCH ×3 (08:00→17:23)
[2022-10-23] MEDS: FAMOTIDINE 20MG TABLET PO SCH (08:44)
[2022-10-23] MEDS: PREDNISONE 20MG TABLET PO SCH (08:44)
[2022-10-23] MEDS: ZINC SULFATE 220 MG ( 50 ) CAPSULE PO SCH (08:44)
[2022-10-23] MEDS: ASCORBIC ACID 500 MG TABLET PO SCH (08:50)
[2022-10-23] MEDS: SPIRONOLACTONE 25MG TABLET PO SCH (08:50)
[2022-10-23] MEDS: ONDANSETRON HCL 4MG/2ML INJ IV PRN ×2 (10:48→14:35)
== END 2022-10-23 19:10 | disposition home or self-care (01) | DRG 194 ==
LOC: ER 12:51 → MICUSO 17:35 → EDBEDREQ 17:55 → EDBEDREQTM 17:55 → 5EST 10-18 10:01
PROVIDERS: ADMIT Internal Medicine; ATTEND Internal Medicine
PROC: 5A09357 Assistance with Respiratory Ventilation, Less than 24 Consecutive Hours, Continuous Positive Airway Pressure (ICD-10-PCS; principal; 2022-10-18)
PROC: 02HV33Z Insertion of Infusion Device into Superior Vena Cava, Percutaneous Approach (ICD-10-PCS; 2022-10-20)
PROC: B548ZZA Ultrasonography of Superior Vena Cava, Guidance (ICD-10-PCS; 2022-10-20)
DX: I11.0 Hypertensive heart disease with heart failure (principal); G92.8 Other toxic encephalopathy; J96.01 Acute respiratory failure with hypoxia; J96.02 Acute respiratory failure with hypercapnia; E87.29 Other acidosis; J44.1 Chronic obstructive pulmonary disease with (acute) exacerbation; I50.41 Acute combined systolic (congestive) and diastolic (congestive) heart failure; E66.2 Morbid (severe) obesity with alveolar hypoventilation; I48.19 Other persistent atrial fibrillation; E87.5 Hyperkalemia; F23 Brief psychotic disorder; E11.9 Type 2 diabetes mellitus without complications; E03.9 Hypothyroidism, unspecified; E78.5 Hyperlipidemia, unspecified; Z20.822 Contact with and (suspected) exposure to COVID-19; G89.4 Chronic pain syndrome; E78.00 Pure hypercholesterolemia, unspecified; E05.90 Thyrotoxicosis, unspecified without thyrotoxic crisis or storm; Z99.81 Dependence on supplemental oxygen; Z68.45 Body mass index [BMI] 70 or greater, adult; Z88.6 Allergy status to analgesic agent; Z79.899 Other long term (current) drug therapy; Z79.01 Long term (current) use of anticoagulants; I69.351 Hemiplegia and hemiparesis following cerebral infarction affecting right dominant side
CPT/HCPCS: 36415; 36573; 36600; 71045; 80053; 80061; 82375; 82550; 82553; 82607; 82746; 82805; 82962; 83036; 83540; 83550; 83735; 83880; 84100; 84145; 84439; 84443; 84484; 85025; 87426; 93005; 93306; 93970; 94003; 94640; 94660; 99285; A6261; C1725; C1769; C9803; J1650; J1815; J1885; J1940; J1956; J2405; J2930; J3490; J7512; J7626

== ENCOUNTER 2023-02-22 18:12 | Emergency (ER) | payer MEDICARE, MEDICAID ==
[~2023-02-22] VITALS: Ht 162.6 cm; Wt 104.0 kg
[~2023-02-22 18:12] MED LIST changes: -AZIT500T8 MT; +COR3 PO; +HYDR-4001 PO; -METO25TA6 PO; -P20 MT; +P20 PO; +SPIR25TA PO; -SULF1TAB44 PO; -SYN150 MT; +SYN200 PO; +TRAM50TA3 PO
[2023-02-22] MEDS ORDERED: HYDROCODONE/ACETAMINOPHEN 5/325MG TABLET PO ONE (21:15)
[2023-02-22 21:31] LABS: BASOPHILS % 0.3 % (0.0-2.0); EOSINOPHILS % 0.5 % (0.0-5.0); HEMATOCRIT. 39.7 % (36.0-48.0); HEMOGLOBIN. 12.5 g/dL (12.0-16.0); LYMPHOCYTES % 12.5 % (20.0-50.0); MEAN CORPUSCULAR HEMOGLOBIN 27.5 pg (28.0-32.0); MEAN CORPUSCULAR VOLUME 87.1 fL (81.0-99.0); MEAN PLATELET VOLUME 7.4 fl (7.4-10.4); MONOCYTES % 8.8 % (2.0-8.0); NEUTROPHILS % 77.9 % (40.0-76.0); PLATELET 364 x1000/uL (130-400); RED BLOOD CELL COUNT 4.56 mill/uL (4.2-5.4); RED CELL DISTRIBUTION WIDTH 16.2 % (11.6-14.6)
[2023-02-22 21:36] LABS: CHLORIDE 102 mEq/L (98-107)
[2023-02-22 21:38] LABS: INR 1.1; PARTIAL THROMBOPLASTIN TIME 32.2 sec (23.4-31.0); PROTHROMBIN TIME 11.9 sec (9.6-11.0)
[2023-02-22] MEDS ORDERED: HYDR-4001 MT (23:46)
[2023-02-22] MEDS ORDERED: CEPH500C2 MT (23:48)
[2023-02-23] MEDS ORDERED: ACETAMINOPHEN 325MG TABLET PO STA (05:24)
[2023-02-23 16:23] VITALS: BP 136/76
== END 2023-02-23 16:28 | disposition home or self-care (01) ==
LOC: ER 18:12
DX: M79.601 Pain in right arm (principal); I11.0 Hypertensive heart disease with heart failure; I50.9 Heart failure, unspecified; J44.9 Chronic obstructive pulmonary disease, unspecified; E78.00 Pure hypercholesterolemia, unspecified; E11.9 Type 2 diabetes mellitus without complications; I48.91 Unspecified atrial fibrillation
CPT/HCPCS: 36415; 80053; 85025; 85610; 85730; 93971; 99284; Z7610

== ENCOUNTER 2023-05-03 03:11 | Inpatient (IN) | payer MEDICARE, MEDICAID ==
[~2023-05-03] VITALS: Ht 165.1 cm; Wt 205.5 kg
[~2023-05-03 03:11] MED LIST changes: -COR3 PO; +FAMO20TA8 PO; +FURO40TA5 PO; -FURO80TA87 MT; -HYDR-4001 PO; +LEVO100T9 PO; +METO-539 PO; -P20 PO; -SYN200 PO; -TRAM50TA3 PO; +WARF-53 PO
[2023-05-03] MEDS ORDERED: ONDANSETRON HCL 4MG/2ML INJ IV STA (04:10)
[2023-05-03] MEDS ORDERED: MORPHINE SULFATE 4 MG/ML CPJ (NOT FOR IM USE) IV STA (04:10)
[2023-05-03] MEDS ORDERED: VANCOMYCIN 1G PREMIX 200 ML IV ONE (04:15)
[2023-05-03] MEDS ORDERED: PIPERACILLIN/TAZ 3.375G PREMIX 50 ML IV ONE (04:15)
[2023-05-03] MEDS ORDERED: SODIUM CHLORIDE 0.9% 1,000 ML IV ONE (04:15)
[2023-05-03 04:32] LABS: BASOPHILS % 0.7 % (0.0-2.0); DIFFERENTIAL COMMENT 0; EOSINOPHILS % 1.7 % (0.0-5.0); HEMATOCRIT. 38.8 % (36.0-48.0); HEMOGLOBIN. 11.8 g/dL (12.0-16.0); MEAN CORPUSCULAR HEMOGLOBIN 26.5 pg (28.0-32.0); MEAN CORPUSCULAR HGB CONC 30.3 g/dL (31.0-37.0); MEAN CORPUSCULAR VOLUME 87.4 fL (81.0-99.0); MEAN PLATELET VOLUME 6.7 fl (7.4-10.4); MONOCYTES % 11.7 % (2.0-8.0); NEUTROPHILS % 61.9 % (40.0-76.0); PLATELET 248 x1000/uL (130-400); RED BLOOD CELL COUNT 4.44 mill/uL (4.2-5.4); RED CELL DISTRIBUTION WIDTH 16.1 % (11.6-14.6); WHITE BLOOD COUNT 5.5 x1000/uL (4.5-11.0)
[2023-05-03 04:41] LABS: CHLORIDE 98 mEq/L (98-107); INDEX HEMOLYSI 1 (1-3); INDEX ICTERIC 1 (1-4); INDEX LIPEMIC 1 (1-3); SODIUM 141 mEq/L (136-145)
[2023-05-03 04:48] LABS: ALANINE AMINOTRANSFERASE 14 IU/L (13-61); ALBUMIN 3.1 g/dL (3.4-5.0); ASPARTATE AMINOTRANSFERASE 17 IU/L (15-37); BILIRUBIN TOTAL 0.4 mg/dL (0.1-1.0); CALCIUM 8.6 mg/dL (8.5-10.1); CARBON DIOXIDE 39 mEq/L (21-32); GLUCOSE 117 mg/dL (70-105); PROTEIN TOTAL 7.5 g/dL (6.0-8.3); UREA NITROGEN BLOOD 19 mg/dL (7-21)
[2023-05-03] MEDS ORDERED: HYDROCODONE/ACETAMINOPHEN 5/325MG TABLET PO ONE (05:30)
[2023-05-03 09:42] LABS: INR 1.1; PROTHROMBIN TIME 11.6 sec (9.6-11.0)
[2023-05-03 09:58] LABS: T4 FREE 0.75 ng/dL (0.76-1.46)
[2023-05-03 10:14] LABS: VITAMIN B12 SERUM 351 pg/mL (211-911)
[2023-05-03] MEDS ORDERED: IOHEXOL-350 100 ML BOTTLE ONE (11:33)
[2023-05-03] MEDS ORDERED: ONDANSETRON HCL 4MG/2ML INJ IV PRN (14:45)
[2023-05-03] MEDS ORDERED: CLONIDINE 0.1MG TABLET PO PRN (14:45)
[2023-05-03] MEDS ORDERED: GUAIFENESIN 200MG/10ML SUGAR FREE UDC PO PRN (14:45)
[2023-05-03] MEDS ORDERED: MAGNESIUM/ALUMINUM HYDROXIDE/SIMETHICONE 30ML UDC PO PRN (14:45)
[2023-05-03] MEDS ORDERED: DOCUSATE SODIUM 100MG CAPSULE PO PRN (14:45)
[2023-05-03] MEDS ORDERED: IPRATROPIUM/ALBUTEROL 0.5-3(2.5)MG/3ML NEB HHN PRN (15:00)
[2023-05-03] MEDS ORDERED: DEXTROSE 50% WATER 50ML SYRINGE IV PRN (15:15)
[2023-05-03] MEDS: LEVOTHYROXINE SODIUM 100MCG TABLET PO SCH (15:57)
[2023-05-03] MEDS: FAMOTIDINE 20MG TABLET PO SCH (15:57)
[2023-05-03] MEDS: LISINOPRIL 5MG TABLET PO SCH (16:30)
[2023-05-03 16:48] VITALS: BP 132/88; PULSE 84; RESP 18; TEMP 97.9
[2023-05-03] MEDS: FUROSEMIDE 40MG/4ML VIAL IVP SCH (17:34)
[2023-05-03] MEDS: SPIRONOLACTONE 25MG TABLET PO SCH (17:35)
[2023-05-03] MEDS: APIXABAN 5 MG TABLET PO SCH (17:35)
[2023-05-03] MEDS: METOPROLOL TARTRATE 50MG TABLET PO SCH (17:38)
[2023-05-03] MEDS: INSULIN LISPRO 100 UNITS/ML SUBCUT SCH ×2 (17:50→21:00)
[2023-05-03] MEDS: BLOOD SUGAR DIAGNOSTIC STRIP TEST SCH ×2 (18:07→21:13)
[2023-05-03 20:00] VITALS: BP 131/71; PULSE 76; RESP 18; TEMP 96.6
[2023-05-03] MEDS: ATORVASTATIN CALCIUM 40MG TABLET PO SCH (21:21)
[2023-05-03] MEDS: AMIODARONE HCL 200 MG TABLET PO SCH (21:21)
[2023-05-04] MEDS: ACETAMINOPHEN 325MG TABLET PO PRN ×2 (01:34→18:21)
[2023-05-04 02:09] LABS: CLARITY URINE CLEAR (CLEAR); COLOR URINE YELLOW (YELLOW); GLUCOSE URINE NEGATIVE (NEGATIVE); KETONES URINE NEGATIVE (NEGATIVE); LEUKOCYTE ESTERASE URINE 2+ (NEGATIVE); NITRITE URINE NEGATIVE (NEGATIVE); OCCULT BLOOD URINE 3+ (NEGATIVE); PROTEIN URINE TRACE (NEGATIVE); SPECIFIC GRAVITY URINE 1.008 (1.005-1.030); UROBILINOGEN URINE 0.2 E.U./dL (0.2-1.0)
[2023-05-04 02:11] LABS: SQUAMOUS EPITHELIAL CELL URINE 1+ /lpf (RARE/1+); YEAST URINE NONE SEEN
[2023-05-04 02:44] LABS: BACTERIA URINE NONE SEEN
[2023-05-04] MEDS: LEVOTHYROXINE SODIUM 100MCG TABLET PO SCH (06:41)
[2023-05-04] MEDS: BLOOD SUGAR DIAGNOSTIC STRIP TEST SCH ×4 (06:51→20:29)
[2023-05-04] MEDS: INSULIN LISPRO 100 UNITS/ML SUBCUT SCH ×4 (07:50→20:29)
[2023-05-04 08:00] VITALS: BP 104/73; PULSE 80; RESP 20; TEMP 98.2
[2023-05-04] MEDS: LISINOPRIL 5MG TABLET PO SCH (09:00)
[2023-05-04] MEDS: FAMOTIDINE 20MG TABLET PO SCH (09:00)
[2023-05-04] MEDS: SPIRONOLACTONE 25MG TABLET PO SCH ×2 (09:00→18:22)
[2023-05-04] MEDS: METOPROLOL TARTRATE 50MG TABLET PO SCH ×2 (09:00→18:22)
[2023-05-04] MEDS: AMLODIPINE 5MG TABLET PO SCH (09:00)
[2023-05-04] MEDS: APIXABAN 5 MG TABLET PO SCH ×2 (09:00→18:21)
[2023-05-04] MEDS: AMIODARONE HCL 200 MG TABLET PO SCH ×2 (09:00→20:30)
[2023-05-04] MEDS: FUROSEMIDE 40MG/4ML VIAL IVP SCH ×2 (10:29→18:21)
[2023-05-04 11:01] LABS: BASOPHILS % 0.4 % (0.0-2.0); DIFFERENTIAL COMMENT 0; EOSINOPHILS % 0.8 % (0.0-5.0); HEMATOCRIT. 38.1 % (36.0-48.0); HEMOGLOBIN. 11.2 g/dL (12.0-16.0); LYMPHOCYTES % 23.2 % (20.0-50.0); MEAN CORPUSCULAR HEMOGLOBIN 26.6 pg (28.0-32.0); MEAN CORPUSCULAR HGB CONC 29.3 g/dL (31.0-37.0); MEAN CORPUSCULAR VOLUME 90.7 fL (81.0-99.0); MEAN PLATELET VOLUME 6.8 fl (7.4-10.4); MONOCYTES % 13.9 % (2.0-8.0); NEUTROPHILS % 61.7 % (40.0-76.0); PLATELET 254 x1000/uL (130-400); RED BLOOD CELL COUNT 4.21 mill/uL (4.2-5.4); RED CELL DISTRIBUTION WIDTH 15.8 % (11.6-14.6); WHITE BLOOD COUNT 5.5 x1000/uL (4.5-11.0)
[2023-05-04 12:00] VITALS: BP 121/78; PULSE 77; RESP 18; TEMP 96.5
[2023-05-04 12:23] LABS: CHLORIDE 95 mEq/L (98-107); INDEX HEMOLYSI 1 (1-3); INDEX ICTERIC 1 (1-4); INDEX LIPEMIC 1 (1-3); SODIUM 134 mEq/L (136-145)
[2023-05-04 12:31] LABS: ALANINE AMINOTRANSFERASE 19 IU/L (13-61); ALBUMIN 3.1 g/dL (3.4-5.0); ASPARTATE AMINOTRANSFERASE 17 IU/L (15-37); BILIRUBIN TOTAL 0.6 mg/dL (0.1-1.0); CARBON DIOXIDE 34 mEq/L (21-32); CREATININE 1.4 mg/dL (0.6-1.3); GLUCOSE 107 mg/dL (70-105); PROTEIN TOTAL 7.6 g/dL (6.0-8.3); UREA NITROGEN BLOOD 25 mg/dL (7-21)
[2023-05-04 16:00] VITALS: BP 118/75; PULSE 78; RESP 18; TEMP 97
[2023-05-04] MEDS ORDERED: MENTHOL/LANOLIN/CALAMINE/ZN OX OINT 71GM TOP PRN (16:00)
[2023-05-04 20:00] VITALS: BP 111/71; PULSE 104; RESP 20; TEMP 96.8
[2023-05-04] MEDS: ATORVASTATIN CALCIUM 40MG TABLET PO SCH (20:30)
[2023-05-04] MEDS: IPRATROPIUM/ALBUTEROL 0.5-3(2.5)MG/3ML NEB HHN SCH (21:14)
[2023-05-04 21:15] VITALS: PULSE 103; RESP 18; O2SAT 93
[2023-05-04 23:30] VITALS: RESP 10
[2023-05-05] VITALS (11 sets, daily range): BP systolic 102–119; BP diastolic 50–98; PULSE 63–86; RESP 14–20; TEMP 96.2–98.1; O2SAT 97
[2023-05-05] MEDS: IPRATROPIUM/ALBUTEROL 0.5-3(2.5)MG/3ML NEB HHN SCH ×4 (02:09→21:15)
[2023-05-05] MEDS: LEVOTHYROXINE SODIUM 100MCG TABLET PO SCH (06:56)
[2023-05-05] MEDS: BLOOD SUGAR DIAGNOSTIC STRIP TEST SCH ×4 (07:02→21:26)
[2023-05-05 07:27] LABS: HEMATOCRIT 38.3 % (36.0-48.0); HEMOGLOBIN 11.4 g/dL (12.0-16.0); MEAN CORPUSCULAR HEMOGLOBIN 26.7 pg (28.0-32.0); MEAN CORPUSCULAR HGB CONC 29.7 g/dL (31.0-37.0); MEAN CORPUSCULAR VOLUME 90.1 fL (81.0-99.0); PLATELET 223 x1000/uL (130-400); RED BLOOD CELL COUNT 4.25 mill/uL (4.2-5.4); RED CELL DISTRIBUTION WIDTH 16.3 % (11.6-14.6); WHITE BLOOD COUNT 6.5 x1000/uL (4.5-11.0)
[2023-05-05 08:05] LABS: POTASSIUM 4.6 mEq/L (3.5-5.1)
[2023-05-05 08:09] LABS: CALCIUM 9.1 mg/dL (8.5-10.1); CREATININE 1.3 mg/dL (0.6-1.3); PHOSPHORUS 4.1 mg/dL (2.5-4.9)
[2023-05-05] MEDS ORDERED: AMMONIUM LACTATE 12% LOTION 240ML TOP SCH (09:00)
[2023-05-05] MEDS: FUROSEMIDE 40MG/4ML VIAL IVP SCH ×2 (09:00→17:00)
[2023-05-05] MEDS: METOPROLOL TARTRATE 50MG TABLET PO SCH ×2 (09:00→17:00)
[2023-05-05] MEDS: AMLODIPINE 5MG TABLET PO SCH (09:00)
[2023-05-05] MEDS: FAMOTIDINE 20MG TABLET PO SCH (09:00)
[2023-05-05] MEDS: AMIODARONE HCL 200 MG TABLET PO SCH ×2 (09:00→21:31)
[2023-05-05] MEDS: SPIRONOLACTONE 25MG TABLET PO SCH ×2 (09:00→17:00)
[2023-05-05] MEDS: LISINOPRIL 5MG TABLET PO SCH (09:00)
[2023-05-05] MEDS: APIXABAN 5 MG TABLET PO SCH ×2 (09:00→17:00)
[2023-05-05 09:25] LABS: BG BASE EXCESS 10.7 mmol/L (-2.0-2.0); BG CARBOXYHEMOGLOBIN 0.9 % (0.5-1.5); BG FRACTION INSPIRED OXYGEN 32; BG HCO3 ACT 38.8 mmol/L (22.0-26.0); BG METHEMOGLOBIN 0.2 % (0.0-1.5); BG OXYGEN SATURATION 94.9 % (92.0-98.5); BG OXYHEMOGLOBIN 93.9 % (94.0-97.0); BG PCO2 70.8 mmHg (35.0-45.0); BG PH 7.357 (7.350-7.450); BG PO2 77.9 mmHg (75.0-100.0); BG SAMPLE SITE RIGHT RADIAL; BG TOTAL HEMOGLOBIN 12.5 g/dL (12.0-18.0); BG TOTAL RESPIRATORY RATE 28 b/min; BG VENT MODE NASAL CANNULA
[2023-05-05] MEDS: INSULIN LISPRO 100 UNITS/ML SUBCUT SCH ×2 (17:50→21:00)
[2023-05-05] MEDS: ACETAMINOPHEN 325MG TABLET PO PRN (20:08)
[2023-05-05] MEDS: ATORVASTATIN CALCIUM 40MG TABLET PO SCH (21:31)
[2023-05-06] VITALS: BP 114/81; PULSE 106; RESP 18; TEMP 98.4
[2023-05-06] MEDS: IPRATROPIUM/ALBUTEROL 0.5-3(2.5)MG/3ML NEB HHN SCH ×2 (01:38→09:44)
[2023-05-06 04:00] VITALS: BP 116/87; PULSE 91; RESP 20; TEMP 98.9
[2023-05-06] MEDS: BLOOD SUGAR DIAGNOSTIC STRIP TEST SCH ×2 (06:09→12:20)
[2023-05-06] MEDS: LEVOTHYROXINE SODIUM 100MCG TABLET PO SCH (06:59)
[2023-05-06] MEDS: INSULIN LISPRO 100 UNITS/ML SUBCUT SCH ×2 (07:09→12:50)
[2023-05-06] MEDS: ACETAMINOPHEN 325MG TABLET PO PRN (07:42)
[2023-05-06 08:00] VITALS: BP 121/76; PULSE 18; RESP 18; TEMP 98.3
[2023-05-06] MEDS: FAMOTIDINE 20MG TABLET PO SCH (08:48)
[2023-05-06] MEDS: LISINOPRIL 5MG TABLET PO SCH (08:48)
[2023-05-06] MEDS: METOPROLOL TARTRATE 50MG TABLET PO SCH (08:48)
[2023-05-06] MEDS: SPIRONOLACTONE 25MG TABLET PO SCH (08:49)
[2023-05-06] MEDS: AMIODARONE HCL 200 MG TABLET PO SCH (08:49)
[2023-05-06] MEDS: APIXABAN 5 MG TABLET PO SCH (08:49)
[2023-05-06] MEDS: AMLODIPINE 5MG TABLET PO SCH (08:49)
[2023-05-06 09:44] VITALS: PULSE 88; RESP 20
[2023-05-06 12:00] VITALS: BP 122/65; PULSE 74; RESP 18; TEMP 98.4
== END 2023-05-06 14:43 | disposition home or self-care (01) | DRG 383 ==
LOC: ER 03:24 → 6EST 09:23
PROVIDERS: ADMIT Internal Medicine; ATTEND Internal Medicine
DX: L03.116 Cellulitis of left lower limb (principal); J96.21 Acute and chronic respiratory failure with hypoxia; I50.23 Acute on chronic systolic (congestive) heart failure; I11.0 Hypertensive heart disease with heart failure; J44.1 Chronic obstructive pulmonary disease with (acute) exacerbation; E66.2 Morbid (severe) obesity with alveolar hypoventilation; I48.91 Unspecified atrial fibrillation; E88.09 Other disorders of plasma-protein metabolism, not elsewhere classified; E03.9 Hypothyroidism, unspecified; E11.9 Type 2 diabetes mellitus without complications; E78.00 Pure hypercholesterolemia, unspecified; I69.351 Hemiplegia and hemiparesis following cerebral infarction affecting right dominant side; M79.662 Pain in left lower leg; M79.661 Pain in right lower leg; Z74.01 Bed confinement status; Z79.899 Other long term (current) drug therapy; Z87.891 Personal history of nicotine dependence; Z88.6 Allergy status to analgesic agent; Z99.81 Dependence on supplemental oxygen; Z88.8 Allergy status to other drugs, medicaments and biological substances; Z68.45 Body mass index [BMI] 70 or greater, adult
CPT/HCPCS: 36415; 36600; 71045; 78580; 80048; 80053; 80061; 81003; 82375; 82607; 82746; 82805; 82962; 83036; 83540; 83550; 83605; 83735; 83880; 84100; 84145; 84439; 84443; 85025; 85027; 85379; 93005; 93970; 94640; 94660; 97162; 97165; 99285; C1893; J1815; J1940; J2270; J2405; J2543; J3370; J7030; Q9967

== ENCOUNTER 2023-06-08 17:39 | Inpatient (IN) | payer MEDICARE, MEDICAID ==
[~2023-06-08] VITALS: Ht 172.7 cm; Wt 206.8 kg
[~2023-06-08 17:39] MED LIST changes: +CARV6.2548 PO; +METF-414 MT; -METF-416 MT; -METO-539 PO; +RIVA20TA PO; -WARF-53 PO
[2023-06-08] MEDS ORDERED: FUROSEMIDE 40MG/4ML VIAL IVP ONE (19:45)
[2023-06-08] MEDS ORDERED: FUROSEMIDE 40MG/4ML VIAL IVP NR (19:45)
[2023-06-08 20:54] LABS: DIFFERENTIAL COMMENT 0; HEMATOCRIT. 39.1 % (36.0-48.0); HEMOGLOBIN. 11.7 g/dL (12.0-16.0); LYMPHOCYTES % 31.4 % (20.0-50.0); MEAN CORPUSCULAR HEMOGLOBIN 25.1 pg (28.0-32.0); MEAN CORPUSCULAR HGB CONC 29.9 g/dL (31.0-37.0); MEAN CORPUSCULAR VOLUME 84.1 fL (81.0-99.0); MEAN PLATELET VOLUME 7.1 fl (7.4-10.4); MONOCYTES % 9.4 % (2.0-8.0); NEUTROPHILS % 56.2 % (40.0-76.0); PLATELET 216 x1000/uL (130-400); RED BLOOD CELL COUNT 4.65 mill/uL (4.2-5.4); RED CELL DISTRIBUTION WIDTH 16.8 % (11.6-14.6); WHITE BLOOD COUNT 4.4 x1000/uL (4.5-11.0)
[2023-06-08 20:58] LABS: CHLORIDE 99 mEq/L (98-107); INDEX HEMOLYSI 1 (1-3); INDEX ICTERIC 1 (1-4); INDEX LIPEMIC 1 (1-3); POTASSIUM 4.6 mEq/L (3.5-5.1); SODIUM 139 mEq/L (136-145)
[2023-06-08 21:09] LABS: ALANINE AMINOTRANSFERASE 21 IU/L (13-61); ALBUMIN 3.3 g/dL (3.4-5.0); ASPARTATE AMINOTRANSFERASE 22 IU/L (15-37); BILIRUBIN TOTAL 0.4 mg/dL (0.1-1.0); CALCIUM 8.6 mg/dL (8.5-10.1); CARBON DIOXIDE 36 mEq/L (21-32); CREATININE 0.9 mg/dL (0.6-1.3); GLUCOSE 114 mg/dL (70-105); NT PRO B-TYPE NATRIURETIC PEP 2490 pg/mL (5-125); PROTEIN TOTAL 7.6 g/dL (6.0-8.3); TROPONIN I HIGH SENSITIVITY 12 ng/L (<54); UREA NITROGEN BLOOD 16 mg/dL (7-21)
[2023-06-09] MEDS ORDERED: CLONIDINE 0.1MG TABLET PO PRN (00:30)
[2023-06-09] MEDS ORDERED: IPRATROPIUM/ALBUTEROL 0.5-3(2.5)MG/3ML NEB HHN PRN (00:30)
[2023-06-09] MEDS ORDERED: MAGNESIUM/ALUMINUM HYDROXIDE/SIMETHICONE 30ML UDC PO PRN (00:30)
[2023-06-09] MEDS ORDERED: GUAIFENESIN 200MG/10ML SUGAR FREE UDC PO PRN (00:30)
[2023-06-09] MEDS ORDERED: ACETAMINOPHEN 325MG TABLET PO PRN (00:30)
[2023-06-09] MEDS ORDERED: DOCUSATE SODIUM 100MG CAPSULE PO PRN (00:30)
[2023-06-09] MEDS ORDERED: DEXTROSE 50% WATER 50ML SYRINGE IV PRN (00:45)
[2023-06-09] MEDS: FUROSEMIDE 40MG/4ML VIAL IVP SCH ×3 (01:00→17:17)
[2023-06-09 03:00] VITALS: BP 140/95; PULSE 88; RESP 20; TEMP 98.6
[2023-06-09 04:09] VITALS: BP 140/95; PULSE 88; RESP 20; TEMP 98.6
[2023-06-09 06:18] LABS: CLARITY URINE CLEAR (CLEAR); COLOR URINE YELLOW (YELLOW); GLUCOSE URINE NEGATIVE (NEGATIVE); KETONES URINE NEGATIVE (NEGATIVE); LEUKOCYTE ESTERASE URINE TRACE (NEGATIVE); NITRITE URINE NEGATIVE (NEGATIVE); OCCULT BLOOD URINE 1+ (NEGATIVE); PROTEIN URINE NEGATIVE (NEGATIVE); SPECIFIC GRAVITY URINE 1.007 (1.005-1.030); UROBILINOGEN URINE 0.2 E.U./dL (0.2-1.0)
[2023-06-09] MEDS: BLOOD SUGAR DIAGNOSTIC STRIP TEST SCH ×4 (06:20→21:00)
[2023-06-09] MEDS: INSULIN LISPRO 100 UNITS/ML SUBCUT SCH ×4 (06:33→21:00)
[2023-06-09 06:37] LABS: INDEX HEMOLYSI 1 (1-3); INDEX ICTERIC 1 (1-4); INDEX LIPEMIC 1 (1-3)
[2023-06-09 06:42] LABS: IRON 27 ug/dL (50-175); TOTAL IRON BINDING CAPACITY 501 ug/dL (250-450)
[2023-06-09] MEDS: LEVOTHYROXINE SODIUM 100MCG TABLET PO SCH (06:47)
[2023-06-09] MEDS ORDERED: METFORMIN HCL 500MG TABLET PO SCH (07:00)
[2023-06-09 07:14] LABS: VITAMIN B12 SERUM 475 pg/mL (211-911)
[2023-06-09 08:00] VITALS: BP 126/84; PULSE 62; RESP 20; TEMP 96.6
[2023-06-09 08:02] LABS: SQUAMOUS EPITHELIAL CELL URINE FEW /lpf (RARE/1+)
[2023-06-09 08:04] LABS: BACTERIA URINE 1+
[2023-06-09] MEDS ORDERED: ENOXAPARIN 40MG/0.4ML SYR SUBCUT SCH (09:00)
[2023-06-09] MEDS ORDERED: FAMOTIDINE 20MG TABLET PO SCH (09:00)
[2023-06-09] MEDS: AMIODARONE HCL 200 MG TABLET PO SCH ×2 (10:38→22:45)
[2023-06-09] MEDS: SPIRONOLACTONE 25MG TABLET PO SCH ×2 (10:39→22:44)
[2023-06-09 12:08] VITALS: BP 152/66; PULSE 70; RESP 18; TEMP 97.6
[2023-06-09] MEDS: GABAPENTIN 300MG CAPSULE PO SCH ×2 (15:01→22:47)
[2023-06-09 15:06] LABS: BASOPHILS % 0.8 % (0.0-2.0); DIFFERENTIAL COMMENT 0; EOSINOPHILS % 1.8 % (0.0-5.0); HEMATOCRIT. 40.1 % (36.0-48.0); HEMOGLOBIN. 12.1 g/dL (12.0-16.0); LYMPHOCYTES % 23.5 % (20.0-50.0); MEAN CORPUSCULAR HEMOGLOBIN 25.3 pg (28.0-32.0); MEAN CORPUSCULAR HGB CONC 30.1 g/dL (31.0-37.0); MEAN CORPUSCULAR VOLUME 84.2 fL (81.0-99.0); MEAN PLATELET VOLUME 7.2 fl (7.4-10.4); MONOCYTES % 11.1 % (2.0-8.0); NEUTROPHILS % 62.8 % (40.0-76.0); PLATELET 206 x1000/uL (130-400); RED BLOOD CELL COUNT 4.76 mill/uL (4.2-5.4); RED CELL DISTRIBUTION WIDTH 16.7 % (11.6-14.6); WHITE BLOOD COUNT 3.8 x1000/uL (4.5-11.0)
[2023-06-09 15:15] LABS: CHLORIDE 95 mEq/L (98-107); INDEX HEMOLYSI 1 (1-3); INDEX ICTERIC 1 (1-4); INDEX LIPEMIC 1 (1-3); POTASSIUM 4.1 mEq/L (3.5-5.1); SODIUM 141 mEq/L (136-145)
[2023-06-09 15:22] LABS: ALANINE AMINOTRANSFERASE 18 IU/L (13-61); ALBUMIN 3.1 g/dL (3.4-5.0); ASPARTATE AMINOTRANSFERASE 22 IU/L (15-37); BILIRUBIN TOTAL 0.6 mg/dL (0.1-1.0); CALCIUM 8.9 mg/dL (8.5-10.1); CREATININE 0.9 mg/dL (0.6-1.3); GLUCOSE 132 mg/dL (70-105); PROTEIN TOTAL 7.4 g/dL (6.0-8.3); UREA NITROGEN BLOOD 15 mg/dL (7-21)
[2023-06-09 15:37] LABS: CARBON DIOXIDE 43 mEq/L (21-32)
[2023-06-09] MEDS ORDERED: LISI10TA26 PO (15:37)
[2023-06-09] MEDS ORDERED: AMLO10TA80 PO (15:37)
[2023-06-09] MEDS ORDERED: METF-416 PO (15:37)
[2023-06-09] MEDS ORDERED: AMI2 PO (15:37)
[2023-06-09] MEDS ORDERED: FAMO20TA8 PO (15:37)
[2023-06-09 16:00] VITALS: BP 121/69; PULSE 87; RESP 22; TEMP 97.2
[2023-06-09] MEDS ORDERED: *PATIENT'S OWN MEDICATION STORAGE XX SCH (16:30)
[2023-06-09] MEDS: RIVAROXABAN 20 MG TABLET PO SCH (17:17)
[2023-06-09 20:00] VITALS: BP 131/82; PULSE 71; RESP 18; TEMP 98
[2023-06-09 22:25] LABS: FERRITIN 15 ng/mL (10-291)
[2023-06-09] MEDS: METHYLPREDNISOLONE SOD SUCC 125MG/2ML (ACT-O-VIAL) IV SCH (22:47)
[2023-06-10] VITALS (9 sets, daily range): BP systolic 110–146; BP diastolic 66–88; PULSE 77–104; RESP 18–20; TEMP 96.4–97.9; O2SAT 95–98
[2023-06-10] MEDS: IPRATROPIUM/ALBUTEROL 0.5-3(2.5)MG/3ML NEB HHN SCH ×4 (01:11→21:30)
[2023-06-10] MEDS: ACETAMINOPHEN 325MG TABLET PO PRN (02:49)
[2023-06-10] MEDS: METHYLPREDNISOLONE SOD SUCC 125MG/2ML (ACT-O-VIAL) IV SCH ×2 (06:03→15:21)
[2023-06-10] MEDS: GABAPENTIN 300MG CAPSULE PO SCH ×3 (06:03→21:56)
[2023-06-10] MEDS: LEVOTHYROXINE SODIUM 100MCG TABLET PO SCH (06:10)
[2023-06-10] MEDS: BLOOD SUGAR DIAGNOSTIC STRIP TEST SCH ×4 (06:10→21:57)
[2023-06-10 06:47] LABS: HEMATOCRIT. 40.7 % (36.0-48.0); HEMOGLOBIN. 12.6 g/dL (12.0-16.0); MEAN CORPUSCULAR HEMOGLOBIN 25.7 pg (28.0-32.0); MEAN PLATELET VOLUME 7.3 fl (7.4-10.4); PLATELET 237 x1000/uL (130-400)
[2023-06-10 06:53] LABS: DIFFERENTIAL COMMENT 1
[2023-06-10 07:47] LABS: CHLORIDE 96 mEq/L (98-107); INDEX HEMOLYSI 1 (1-3); INDEX ICTERIC 1 (1-4); INDEX LIPEMIC 1 (1-3); POTASSIUM 4.5 mEq/L (3.5-5.1); SODIUM 135 mEq/L (136-145)
[2023-06-10] MEDS: INSULIN LISPRO 100 UNITS/ML SUBCUT SCH ×4 (07:47→21:59)
[2023-06-10 08:06] LABS: ALANINE AMINOTRANSFERASE 19 IU/L (13-61); ALBUMIN 3.3 g/dL (3.4-5.0); ASPARTATE AMINOTRANSFERASE 20 IU/L (15-37); BILIRUBIN TOTAL 0.6 mg/dL (0.1-1.0); CALCIUM 8.7 mg/dL (8.5-10.1); CARBON DIOXIDE 38 mEq/L (21-32); CHOLESTEROL 179 mg/dL (<200); CREATININE 1.1 mg/dL (0.6-1.3); GLUCOSE 177 mg/dL (70-105); HDL CHOLESTEROL 47 mg/dL (40-59); LDL CHOLESTEROL 126 mg/dL (5-100); PROTEIN TOTAL 7.9 g/dL (6.0-8.3); T4 FREE 0.39 ng/dL (0.76-1.46); TRIGLYCERIDE 64 mg/dL (0-150); UREA NITROGEN BLOOD 14 mg/dL (7-21)
[2023-06-10 09:06] LABS: BG BASE EXCESS 10.9 mmol/L (-2.0-2.0); BG CARBOXYHEMOGLOBIN 1.1 % (0.5-1.5); BG DEOXYHEMOGLOBIN 3.9 % (0.0-5.0); BG HCO3 ACT 40.3 mmol/L (22.0-26.0); BG METHEMOGLOBIN 0.2 % (0.0-1.5); BG OXYHEMOGLOBIN 94.8 % (94.0-97.0); BG PCO2 78.4 mmHg (35.0-45.0); BG PH 7.329 (7.350-7.450); BG PO2 87.2 mmHg (75.0-100.0); BG SAMPLE SITE LEFT RADIAL; BG VENT MODE NASAL CANNULA
[2023-06-10] MEDS: AMIODARONE HCL 200 MG TABLET PO SCH ×2 (09:16→21:57)
[2023-06-10] MEDS: SPIRONOLACTONE 25MG TABLET PO SCH ×2 (09:16→21:56)
[2023-06-10] MEDS: FUROSEMIDE 40MG/4ML VIAL IVP SCH ×2 (09:16→17:40)
[2023-06-10 16:46] LABS: PLATELET ESTIMATE NORMAL
[2023-06-10] MEDS: DOXYCYCLINE 100 MG in DEXT 5% WATER 100 ML IV SCH ×2 (17:40→18:37)
[2023-06-10] MEDS: RIVAROXABAN 20 MG TABLET PO SCH (17:40)
[2023-06-10] MEDS: ATORVASTATIN CALCIUM 40MG TABLET PO SCH (21:56)
[2023-06-10] MEDS: METHYLPREDNISOLONE SOD SUCC 40MG/ML (ACT-O-VIAL) IV SCH (22:01)
[2023-06-11] VITALS (7 sets, daily range): BP systolic 118–141; BP diastolic 59–76; PULSE 60–102; RESP 18–22; TEMP 97.6–100.2
[2023-06-11] MEDS: ACETAMINOPHEN 325MG TABLET PO PRN ×2 (00:02→10:21)
[2023-06-11] MEDS ORDERED: HYDROCODONE/ACETAMINOPHEN 5/325MG TABLET PO NR (02:30)
[2023-06-11] MEDS: LEVOTHYROXINE SODIUM 100MCG TABLET PO SCH (06:38)
[2023-06-11] MEDS: METHYLPREDNISOLONE SOD SUCC 40MG/ML (ACT-O-VIAL) IV SCH ×3 (06:38→21:21)
[2023-06-11] MEDS: GABAPENTIN 300MG CAPSULE PO SCH ×3 (06:39→21:21)
[2023-06-11] MEDS: DOXYCYCLINE 100 MG in DEXT 5% WATER 100 ML IV SCH ×2 (06:39→17:38)
[2023-06-11] MEDS: BLOOD SUGAR DIAGNOSTIC STRIP TEST SCH ×5 (07:10→21:21)
[2023-06-11 07:34] LABS: CALCIUM 8.8 mg/dL (8.5-10.1); PHOSPHORUS 3.5 mg/dL (2.5-4.9); POTASSIUM 4.4 mEq/L (3.5-5.1)
[2023-06-11] MEDS: INSULIN LISPRO 100 UNITS/ML SUBCUT SCH ×5 (07:40→21:23)
[2023-06-11] MEDS: FUROSEMIDE 40MG/4ML VIAL IVP SCH ×2 (08:53→17:37)
[2023-06-11] MEDS: AMIODARONE HCL 200 MG TABLET PO SCH ×2 (08:54→21:21)
[2023-06-11] MEDS: SPIRONOLACTONE 25MG TABLET PO SCH ×2 (08:54→21:19)
[2023-06-11] MEDS: LISINOPRIL 5MG TABLET PO SCH (08:55)
[2023-06-11] MEDS ORDERED: MAGNESIUM 1 G PREMIX 100 ML IV SCH (10:00)
[2023-06-11] MEDS: CARVEDILOL 3.125 MG TABLET PO SCH ×2 (10:20→21:20)
[2023-06-11] MEDS: PANTOPRAZOLE 40MG DR TABLET PO SCH (10:20)
[2023-06-11] MEDS ORDERED: KETOROLAC 15MG/ML VIAL IV PRN (17:00)
[2023-06-11] MEDS: RIVAROXABAN 20 MG TABLET PO SCH (17:37)
[2023-06-11] MEDS: IPRATROPIUM/ALBUTEROL 0.5-3(2.5)MG/3ML NEB HHN SCH (20:43)
[2023-06-11] MEDS: ATORVASTATIN CALCIUM 40MG TABLET PO SCH (21:21)
[2023-06-12] VITALS (8 sets, daily range): BP systolic 104–130; BP diastolic 8–88; PULSE 71–95; RESP 17–20; TEMP 96.9–97.8; O2SAT 96
[2023-06-12] MEDS: DOXYCYCLINE 100 MG in DEXT 5% WATER 100 ML IV SCH ×2 (05:53→17:51)
[2023-06-12] MEDS: METHYLPREDNISOLONE SOD SUCC 40MG/ML (ACT-O-VIAL) IV SCH ×3 (05:54→21:23)
[2023-06-12] MEDS: GABAPENTIN 300MG CAPSULE PO SCH ×3 (05:54→21:23)
[2023-06-12] MEDS: PANTOPRAZOLE 40MG DR TABLET PO SCH (06:04)
[2023-06-12] MEDS: LEVOTHYROXINE SODIUM 100MCG TABLET PO SCH (06:05)
[2023-06-12] MEDS: BLOOD SUGAR DIAGNOSTIC STRIP TEST SCH ×4 (06:05→21:23)
[2023-06-12] MEDS: INSULIN LISPRO 100 UNITS/ML SUBCUT SCH ×4 (06:06→21:26)
[2023-06-12] MEDS: AMIODARONE HCL 200 MG TABLET PO SCH ×2 (09:00→21:22)
[2023-06-12] MEDS: LISINOPRIL 5MG TABLET PO SCH (09:00)
[2023-06-12] MEDS: FUROSEMIDE 40MG/4ML VIAL IVP SCH ×2 (09:00→17:49)
[2023-06-12] MEDS: SPIRONOLACTONE 25MG TABLET PO SCH ×2 (09:01→21:23)
[2023-06-12] MEDS: CARVEDILOL 3.125 MG TABLET PO SCH ×2 (09:01→21:23)
[2023-06-12] MEDS: IPRATROPIUM/ALBUTEROL 0.5-3(2.5)MG/3ML NEB HHN SCH ×3 (09:58→21:44)
[2023-06-12 14:55] LABS: POTASSIUM 4.7 mEq/L (3.5-5.1)
[2023-06-12 14:57] LABS: CALCIUM 8.6 mg/dL (8.5-10.1); PHOSPHORUS 3.7 mg/dL (2.5-4.9)
[2023-06-12] MEDS: RIVAROXABAN 20 MG TABLET PO SCH (17:48)
[2023-06-12] MEDS: ATORVASTATIN CALCIUM 40MG TABLET PO SCH (21:22)
[2023-06-13] VITALS (10 sets, daily range): BP systolic 98–138; BP diastolic 68–87; PULSE 67–93; RESP 18–22; TEMP 97.2–98.6; O2SAT 98–99
[2023-06-13] MEDS: IPRATROPIUM/ALBUTEROL 0.5-3(2.5)MG/3ML NEB HHN SCH ×4 (03:05→20:17)
[2023-06-13] MEDS: METHYLPREDNISOLONE SOD SUCC 40MG/ML (ACT-O-VIAL) IV SCH ×3 (06:09→20:54)
[2023-06-13] MEDS: DOXYCYCLINE 100 MG in DEXT 5% WATER 100 ML IV SCH ×2 (06:09→17:32)
[2023-06-13] MEDS: GABAPENTIN 300MG CAPSULE PO SCH ×3 (06:09→20:53)
[2023-06-13] MEDS: PANTOPRAZOLE 40MG DR TABLET PO SCH (06:10)
[2023-06-13] MEDS: BLOOD SUGAR DIAGNOSTIC STRIP TEST SCH ×4 (06:10→20:53)
[2023-06-13] MEDS: LEVOTHYROXINE SODIUM 100MCG TABLET PO SCH (06:10)
[2023-06-13] MEDS: INSULIN LISPRO 100 UNITS/ML SUBCUT SCH ×4 (06:13→21:01)
[2023-06-13 07:06] LABS: DIFFERENTIAL COMMENT 0; HEMATOCRIT. 37.8 % (36.0-48.0); HEMOGLOBIN. 11.6 g/dL (12.0-16.0); LYMPHOCYTES % 10.3 % (20.0-50.0); MEAN CORPUSCULAR HGB CONC 30.6 g/dL (31.0-37.0); MEAN CORPUSCULAR VOLUME 81.7 fL (81.0-99.0); MEAN PLATELET VOLUME 7.6 fl (7.4-10.4); MONOCYTES % 3.6 % (2.0-8.0); NEUTROPHILS % 86.1 % (40.0-76.0); PLATELET 223 x1000/uL (130-400); RED BLOOD CELL COUNT 4.63 mill/uL (4.2-5.4); RED CELL DISTRIBUTION WIDTH 16.8 % (11.6-14.6); WHITE BLOOD COUNT 4.9 x1000/uL (4.5-11.0)
[2023-06-13 08:38] LABS: POTASSIUM 4.9 mEq/L (3.5-5.1)
[2023-06-13 08:51] LABS: CALCIUM 8.8 mg/dL (8.5-10.1); CREATININE 1.1 mg/dL (0.6-1.3); PHOSPHORUS 3.5 mg/dL (2.5-4.9)
[2023-06-13] MEDS: LIDOCAINE 5% PATCH TOP SCH (09:00)
[2023-06-13] MEDS: FUROSEMIDE 40MG/4ML VIAL IVP SCH ×2 (09:12→17:32)
[2023-06-13] MEDS: LISINOPRIL 5MG TABLET PO SCH (09:21)
[2023-06-13] MEDS: CARVEDILOL 3.125 MG TABLET PO SCH ×2 (09:21→20:53)
[2023-06-13] MEDS: AMIODARONE HCL 200 MG TABLET PO SCH ×2 (09:21→20:53)
[2023-06-13] MEDS: SPIRONOLACTONE 25MG TABLET PO SCH ×2 (09:21→20:53)
[2023-06-13] MEDS ORDERED: LIDOCAINE HCL 1% 10 MG/ML 10ML VIAL ONE (09:36)
[2023-06-13] MEDS: ACETAMINOPHEN 325MG TABLET PO PRN (10:35)
[2023-06-13] MEDS: RIVAROXABAN 20 MG TABLET PO SCH (17:00)
[2023-06-13] MEDS: ATORVASTATIN CALCIUM 40MG TABLET PO SCH (20:53)
[2023-06-14] VITALS (7 sets, daily range): BP systolic 112–131; BP diastolic 70–84; PULSE 69–93; RESP 18–22; TEMP 97.6–98; O2SAT 99
[2023-06-14] MEDS: IPRATROPIUM/ALBUTEROL 0.5-3(2.5)MG/3ML NEB HHN SCH ×3 (02:56→14:46)
[2023-06-14 06:26] LABS: POTASSIUM 4.8 mEq/L (3.5-5.1)
[2023-06-14 06:38] LABS: CALCIUM 8.8 mg/dL (8.5-10.1); CREATININE 1.1 mg/dL (0.6-1.3); PHOSPHORUS 4.5 mg/dL (2.5-4.9)
[2023-06-14] MEDS: LEVOTHYROXINE SODIUM 100MCG TABLET PO SCH (07:03)
[2023-06-14] MEDS: DOXYCYCLINE 100 MG in DEXT 5% WATER 100 ML IV SCH ×2 (07:04→17:34)
[2023-06-14] MEDS: PANTOPRAZOLE 40MG DR TABLET PO SCH (07:04)
[2023-06-14] MEDS: BLOOD SUGAR DIAGNOSTIC STRIP TEST SCH ×4 (07:04→21:02)
[2023-06-14] MEDS: GABAPENTIN 300MG CAPSULE PO SCH ×3 (07:04→21:43)
[2023-06-14] MEDS: METHYLPREDNISOLONE SOD SUCC 40MG/ML (ACT-O-VIAL) IV SCH ×3 (07:04→21:43)
[2023-06-14] MEDS: INSULIN LISPRO 100 UNITS/ML SUBCUT SCH ×4 (07:05→21:05)
[2023-06-14] MEDS: AMIODARONE HCL 200 MG TABLET PO SCH ×2 (08:50→21:01)
[2023-06-14] MEDS: FUROSEMIDE 40MG/4ML VIAL IVP SCH (08:50)
[2023-06-14] MEDS: CARVEDILOL 3.125 MG TABLET PO SCH ×2 (08:53→21:02)
[2023-06-14] MEDS: SPIRONOLACTONE 25MG TABLET PO SCH ×2 (08:53→21:02)
[2023-06-14] MEDS: LISINOPRIL 5MG TABLET PO SCH (08:54)
[2023-06-14] MEDS: LIDOCAINE 5% PATCH TOP SCH (09:06)
[2023-06-14] MEDS: CYANOCOBALAMIN 1000MCG/ML VIAL IM SCH ×2 (09:07→09:09)
[2023-06-14] MEDS: FUROSEMIDE 40MG TABLET PO SCH (17:33)
[2023-06-14] MEDS: RIVAROXABAN 20 MG TABLET PO SCH (17:33)
[2023-06-14] MEDS: ATORVASTATIN CALCIUM 40MG TABLET PO SCH (21:02)
[2023-06-15] VITALS (7 sets, daily range): BP systolic 107–134; BP diastolic 65–95; PULSE 72–111; RESP 18–22; TEMP 96.6–98.4; O2SAT 96
[2023-06-15] MEDS: PANTOPRAZOLE 40MG DR TABLET PO SCH (06:30)
[2023-06-15] MEDS: METHYLPREDNISOLONE SOD SUCC 40MG/ML (ACT-O-VIAL) IV SCH ×2 (06:30→13:37)
[2023-06-15] MEDS: GABAPENTIN 300MG CAPSULE PO SCH ×3 (06:30→21:09)
[2023-06-15] MEDS: FUROSEMIDE 40MG TABLET PO SCH ×2 (06:30→17:40)
[2023-06-15] MEDS: BLOOD SUGAR DIAGNOSTIC STRIP TEST SCH ×4 (06:31→21:10)
[2023-06-15] MEDS: LEVOTHYROXINE SODIUM 100MCG TABLET PO SCH (06:31)
[2023-06-15] MEDS: DOXYCYCLINE 100 MG in DEXT 5% WATER 100 ML IV SCH ×2 (06:32→17:40)
[2023-06-15] MEDS: INSULIN LISPRO 100 UNITS/ML SUBCUT SCH ×4 (06:34→21:11)
[2023-06-15] MEDS: CARVEDILOL 3.125 MG TABLET PO SCH ×2 (09:02→21:09)
[2023-06-15] MEDS: AMIODARONE HCL 200 MG TABLET PO SCH ×2 (09:02→21:10)
[2023-06-15] MEDS: LISINOPRIL 5MG TABLET PO SCH (09:02)
[2023-06-15] MEDS: CYANOCOBALAMIN 1000MCG/ML VIAL IM SCH (09:03)
[2023-06-15] MEDS: LIDOCAINE 5% PATCH TOP SCH (09:03)
[2023-06-15] MEDS: SPIRONOLACTONE 25MG TABLET PO SCH ×2 (09:03→21:10)
[2023-06-15] MEDS: IPRATROPIUM/ALBUTEROL 0.5-3(2.5)MG/3ML NEB HHN SCH (09:29)
[2023-06-15] MEDS: RIVAROXABAN 20 MG TABLET PO SCH (17:40)
[2023-06-15] MEDS: ATORVASTATIN CALCIUM 40MG TABLET PO SCH (21:10)
[2023-06-16] VITALS: BP 140/88; PULSE 80; RESP 20; TEMP 98.6
[2023-06-16 04:00] VITALS: BP 138/77; PULSE 82; RESP 20; TEMP 97
[2023-06-16] MEDS: LEVOTHYROXINE SODIUM 100MCG TABLET PO SCH (06:09)
[2023-06-16] MEDS: FUROSEMIDE 40MG TABLET PO SCH ×2 (06:09→18:50)
[2023-06-16] MEDS: GABAPENTIN 300MG CAPSULE PO SCH ×3 (06:09→21:18)
[2023-06-16] MEDS: BLOOD SUGAR DIAGNOSTIC STRIP TEST SCH ×4 (06:10→21:23)
[2023-06-16] MEDS: INSULIN LISPRO 100 UNITS/ML SUBCUT SCH ×4 (06:10→21:22)
[2023-06-16 08:00] VITALS: BP 144/98; PULSE 81; RESP 20; TEMP 96.8
[2023-06-16] MEDS: LIDOCAINE 5% PATCH TOP SCH (09:00)
[2023-06-16] MEDS: CYANOCOBALAMIN 1000MCG/ML VIAL IM SCH (10:00)
[2023-06-16] MEDS: AMIODARONE HCL 200 MG TABLET PO SCH (10:01)
[2023-06-16] MEDS: CARVEDILOL 3.125 MG TABLET PO SCH ×2 (10:02→21:20)
[2023-06-16] MEDS: FAMOTIDINE 20MG TABLET PO SCH ×2 (10:04→21:20)
[2023-06-16] MEDS: PREDNISONE 20MG TABLET PO SCH (10:04)
[2023-06-16] MEDS: LISINOPRIL 5MG TABLET PO SCH (10:05)
[2023-06-16] MEDS ORDERED: MECLIZINE 25MG TABLET PO PRN (10:15)
[2023-06-16] MEDS: SPIRONOLACTONE 25MG TABLET PO SCH ×2 (10:35→21:21)
[2023-06-16 12:00] VITALS: BP 131/87; PULSE 73; RESP 18; TEMP 97.5
[2023-06-16 16:00] VITALS: BP 143/64; PULSE 83; RESP 20; TEMP 97.5
[2023-06-16] MEDS: RIVAROXABAN 20 MG TABLET PO SCH (18:50)
[2023-06-16 20:00] VITALS: BP 117/64; PULSE 80; RESP 20; TEMP 97.8
[2023-06-16] MEDS: ATORVASTATIN CALCIUM 40MG TABLET PO SCH (21:18)
[2023-06-17] VITALS: BP 120/70; PULSE 90; RESP 18; TEMP 98.4
[2023-06-17 04:00] VITALS: BP 108/79; PULSE 62; RESP 20; TEMP 96.7
[2023-06-17] MEDS: GABAPENTIN 300MG CAPSULE PO SCH ×3 (06:15→22:06)
[2023-06-17] MEDS: FUROSEMIDE 40MG TABLET PO SCH ×2 (06:15→18:05)
[2023-06-17] MEDS: LEVOTHYROXINE SODIUM 100MCG TABLET PO SCH (06:16)
[2023-06-17] MEDS: BLOOD SUGAR DIAGNOSTIC STRIP TEST SCH ×4 (07:10→21:00)
[2023-06-17] MEDS: INSULIN LISPRO 100 UNITS/ML SUBCUT SCH ×4 (07:40→22:18)
[2023-06-17 08:00] VITALS: BP 100/63; RESP 20; TEMP 97.7
[2023-06-17] MEDS: LISINOPRIL 5MG TABLET PO SCH (09:00)
[2023-06-17] MEDS: CARVEDILOL 3.125 MG TABLET PO SCH ×2 (09:00→22:14)
[2023-06-17] MEDS: LIDOCAINE 5% PATCH TOP SCH (09:00)
[2023-06-17] MEDS: SPIRONOLACTONE 25MG TABLET PO SCH ×2 (09:00→22:13)
[2023-06-17] MEDS: AMIODARONE HCL 200 MG TABLET PO SCH (10:45)
[2023-06-17] MEDS: FAMOTIDINE 20MG TABLET PO SCH ×2 (10:46→22:06)
[2023-06-17] MEDS: PREDNISONE 20MG TABLET PO SCH (10:47)
[2023-06-17] MEDS: CYANOCOBALAMIN 1000MCG/ML VIAL IM SCH (10:47)
[2023-06-17 12:00] VITALS: BP 105/62; PULSE 75; RESP 20; TEMP 98.2
[2023-06-17 16:00] VITALS: BP 107/63; PULSE 70; RESP 18; TEMP 98
[2023-06-17] MEDS: RIVAROXABAN 20 MG TABLET PO SCH (18:05)
[2023-06-17 20:00] VITALS: BP 112/62; PULSE 67; RESP 18; TEMP 98
[2023-06-17] MEDS: ATORVASTATIN CALCIUM 40MG TABLET PO SCH (22:05)
[2023-06-18] VITALS: BP 104/61; PULSE 89; RESP 18; TEMP 97.7
[2023-06-18 04:00] VITALS: BP 121/95; PULSE 63; RESP 18; TEMP 97.8
[2023-06-18] MEDS: FUROSEMIDE 40MG TABLET PO SCH (07:00)
[2023-06-18] MEDS: GABAPENTIN 300MG CAPSULE PO SCH (07:00)
[2023-06-18] MEDS: LEVOTHYROXINE SODIUM 100MCG TABLET PO SCH (07:00)
[2023-06-18] MEDS: BLOOD SUGAR DIAGNOSTIC STRIP TEST SCH (07:10)
[2023-06-18] MEDS: INSULIN LISPRO 100 UNITS/ML SUBCUT SCH (07:40)
[2023-06-18 08:00] VITALS: BP 117/80; PULSE 77; RESP 17; TEMP 97.1
[2023-06-18 09:00] VITALS: RESP 18
[2023-06-18] MEDS: LIDOCAINE 5% PATCH TOP SCH (09:00)
[2023-06-18] MEDS: CARVEDILOL 3.125 MG TABLET PO SCH (10:09)
[2023-06-18] MEDS: PREDNISONE 20MG TABLET PO SCH (10:09)
[2023-06-18] MEDS: LISINOPRIL 5MG TABLET PO SCH (10:10)
[2023-06-18] MEDS: SPIRONOLACTONE 25MG TABLET PO SCH (10:10)
[2023-06-18] MEDS: FAMOTIDINE 20MG TABLET PO SCH (10:10)
[2023-06-18] MEDS: AMIODARONE HCL 200 MG TABLET PO SCH (10:11)
[2023-06-18 11:25] VITALS: BP 117/80; PULSE 77; TEMP 97.1; O2SAT 97
== END 2023-06-18 13:05 | disposition home health service (06) | DRG 194 ==
LOC: ER 17:39 → MICUSO 23:05 → EDBEDREQ 23:25 → EDBEDREQTM 23:25 → 8WST 06-09 03:03
PROVIDERS: ADMIT Hospitalist; ATTEND Hospitalist
PROC: 02HV33Z Insertion of Infusion Device into Superior Vena Cava, Percutaneous Approach (ICD-10-PCS; principal; 2023-06-13)
PROC: B548ZZA Ultrasonography of Superior Vena Cava, Guidance (ICD-10-PCS; 2023-06-13)
DX: I11.0 Hypertensive heart disease with heart failure (principal); J96.21 Acute and chronic respiratory failure with hypoxia; E44.1 Mild protein-calorie malnutrition; E87.29 Other acidosis; I42.0 Dilated cardiomyopathy; I48.0 Paroxysmal atrial fibrillation; G62.9 Polyneuropathy, unspecified; E11.9 Type 2 diabetes mellitus without complications; D50.9 Iron deficiency anemia, unspecified; J44.1 Chronic obstructive pulmonary disease with (acute) exacerbation; L97.909 Non-pressure chronic ulcer of unspecified part of unspecified lower leg with unspecified severity; I50.23 Acute on chronic systolic (congestive) heart failure; D64.89 Other specified anemias; D72.819 Decreased white blood cell count, unspecified; J96.22 Acute and chronic respiratory failure with hypercapnia; E03.9 Hypothyroidism, unspecified; E66.01 Morbid (severe) obesity due to excess calories; E78.5 Hyperlipidemia, unspecified; G47.33 Obstructive sleep apnea (adult) (pediatric); G47.00 Insomnia, unspecified; N39.0 Urinary tract infection, site not specified; R79.89 Other specified abnormal findings of blood chemistry; I87.8 Other specified disorders of veins; Z79.84 Long term (current) use of oral hypoglycemic drugs; Z74.01 Bed confinement status; Z99.81 Dependence on supplemental oxygen; Z68.45 Body mass index [BMI] 70 or greater, adult; Z79.01 Long term (current) use of anticoagulants; Z88.6 Allergy status to analgesic agent; Z86.73 Personal history of transient ischemic attack (TIA), and cerebral infarction without residual deficits; Z79.899 Other long term (current) drug therapy; Z82.49 Family history of ischemic heart disease and other diseases of the circulatory system; Z87.891 Personal history of nicotine dependence; Z91.199 Patient's noncompliance with other medical treatment and regimen due to unspecified reason; Z68.44 Body mass index [BMI] 60.0-69.9, adult; Z88.8 Allergy status to other drugs, medicaments and biological substances
CPT/HCPCS: 36415; 36573; 36600; 71045; 80048; 80053; 80061; 81003; 82375; 82607; 82728; 82746; 82803; 82805; 82962; 83036; 83540; 83550; 83735; 83880; 84100; 84439; 84443; 84484; 85025; 85379; 93005; 93970; 94640; 97162; 97167; 97530; 97535; 99285; C1725; C1887; J1815; J1885; J1940; J2920; J2930; J3420; J3475; J3490; J7060; J7512

== ENCOUNTER 2023-12-10 13:33 | Emergency (ER) | payer MEDICARE, MEDICAID ==
[~2023-12-10] VITALS: Ht 172.7 cm; Wt 160.0 kg
[~2023-12-10 13:33] MED LIST changes: +AMLO10TA80 PO; +LEVO-65 MT; +LISI10TA26 PO; -METF-414 MT; +METF-416 PO; +P20 MT
[2023-12-10] MEDS ORDERED: ALBUTEROL (0.083%) 2.5MG/3ML NEB HHN STA (13:41)
[2023-12-10] MEDS ORDERED: IPRATROPIUM BROMIDE (0.02%) 0.5MG/2.5ML NEB HHN STA (13:41)
[2023-12-10 14:24] LABS: BASOPHILS % 0.4 % (0.0-2.0); EOSINOPHILS % 0.8 % (0.0-5.0); HEMATOCRIT. 42.5 % (36.0-48.0); HEMOGLOBIN. 13.2 g/dL (12.0-16.0); LYMPHOCYTES % 32.4 % (20.0-50.0); MEAN CORPUSCULAR HEMOGLOBIN 28.7 pg (28.0-32.0); MEAN CORPUSCULAR VOLUME 92.5 fL (81.0-99.0); NEUTROPHILS % 52.4 % (40.0-76.0); PLATELET 182 x1000/uL (130-400); RED CELL DISTRIBUTION WIDTH 15.8 % (11.6-14.6); WHITE BLOOD COUNT 4.4 x1000/uL (4.5-11.0)
[2023-12-10 14:30] LABS: INR 1.2; PARTIAL THROMBOPLASTIN TIME 32.9 sec (23.4-31.0); PROTHROMBIN TIME 13.1 sec (9.6-11.0)
[2023-12-10 14:34] LABS: ALANINE AMINOTRANSFERASE 18 IU/L (10-49); ALBUMIN 3.6 g/dL (3.2-4.8); ASPARTATE AMINOTRANSFERASE 19 IU/L (<34); BILIRUBIN TOTAL 0.4 mg/dL (0.1-1.0); CALCIUM 8.5 mg/dL (8.7-10.4); CARBON DIOXIDE 39 mEq/L (21-32); CHLORIDE 99 mEq/L (98-107); GLUCOSE 114 mg/dL (70-105); PROTEIN TOTAL 6.5 g/dL (6.0-8.3); SODIUM 139 mEq/L (136-145); TROPONIN I HIGH SENSITIVITY 8 ng/L (3.0-34); UREA NITROGEN BLOOD 19 mg/dL (9-23)
[2023-12-10 18:21] VITALS: PULSE 81; RESP 18; O2SAT 94
[2023-12-10] MEDS: ALBUTEROL (0.083%) 2.5MG/3ML NEB HHN NR (18:21)
[2023-12-10] MEDS: IPRATROPIUM BROMIDE (0.02%) 0.5MG/2.5ML NEB HHN NR (18:21)
[2023-12-10 18:22] LABS: CLARITY URINE CLEAR (CLEAR); COLOR URINE DARK YELLOW (YELLOW); GLUCOSE URINE NEGATIVE (NEGATIVE); KETONES URINE NEGATIVE (NEGATIVE); LEUKOCYTE ESTERASE URINE TRACE (NEGATIVE); NITRITE URINE POSITIVE (NEGATIVE); OCCULT BLOOD URINE NEGATIVE (NEGATIVE); PH URINE 5.5 (4.5-8.0); PROTEIN URINE 2+ (NEGATIVE); SPECIFIC GRAVITY URINE 1.025 (1.005-1.030)
[2023-12-10 18:30] LABS: BACTERIA URINE 3+; RBC URINE 0-2 /hpf (0-2); SQUAMOUS EPITHELIAL CELL URINE 2+ /lpf (RARE/1+)
[2023-12-10] MEDS ORDERED: CEPH500C2 MT (18:35)
[2023-12-10] MEDS: CEFTRIAXONE 1GM/50ML 50 ML IV ONE (18:49)
[2023-12-10 19:06] LABS: TROPONIN I HIGH SENSITIVITY 6 ng/L (3.0-34)
[2023-12-10 21:43] VITALS: BP 129/77; PULSE 86; RESP 20; TEMP 97
== END 2023-12-11 02:00 | disposition home or self-care (01) ==
LOC: ER 14:10
DX: S00.83XA Contusion of other part of head, initial encounter (principal); G89.11 Acute pain due to trauma; N39.0 Urinary tract infection, site not specified; I11.0 Hypertensive heart disease with heart failure; I50.9 Heart failure, unspecified; J44.9 Chronic obstructive pulmonary disease, unspecified; E11.9 Type 2 diabetes mellitus without complications; Z79.899 Other long term (current) drug therapy; W18.39XA Other fall on same level, initial encounter; Y93.89 Activity, other specified; Y92.89 Other specified places as the place of occurrence of the external cause; Y99.8 Other external cause status
CPT/HCPCS: 80053; 81003; 83880; 85025; 85610; 85730; 84484; 36415; 71045; 70450; 70486; 72125; 94640; 93005; 96365; 99285; J0696; Z7610 ×4

== ENCOUNTER 2024-01-07 11:33 | Inpatient (IN) | payer MEDICARE, MEDICAID ==
[2024-01-07] VITALS (7 sets, daily range): BP systolic 114–157; BP diastolic 85–116; PULSE 115–123; RESP 16–29; TEMP 97.3–98.2
[~2024-01-07] VITALS: Ht 165.1 cm; Wt 200.0 kg
[~2024-01-07 11:33] MED LIST changes: +CEPH500C2 MT
[2024-01-07 12:32] LABS: ALANINE AMINOTRANSFERASE 25 IU/L (10-49); ALBUMIN 4.3 g/dL (3.2-4.8); ASPARTATE AMINOTRANSFERASE 50 IU/L (<34); BILIRUBIN TOTAL 0.9 mg/dL (0.1-1.0); CALCIUM 8.5 mg/dL (8.7-10.4); CARBON DIOXIDE 29 mEq/L (21-32); CHLORIDE 99 mEq/L (98-107); GLUCOSE 128 mg/dL (70-105); PROTEIN TOTAL 7.8 g/dL (6.0-8.3); SODIUM 134 mEq/L (136-145); TROPONIN I HIGH SENSITIVITY 8 ng/L (3.0-34); UREA NITROGEN BLOOD 17 mg/dL (9-23)
[2024-01-07 12:34] LABS: BASOPHILS % 0.5 % (0.0-2.0); DIFFERENTIAL COMMENT 0; EOSINOPHILS % 0.1 % (0.0-5.0); HEMATOCRIT. 46.9 % (36.0-48.0); HEMOGLOBIN. 14.1 g/dL (12.0-16.0); LYMPHOCYTES % 23.3 % (20.0-50.0); MEAN CORPUSCULAR VOLUME 96.5 fL (81.0-99.0); MEAN PLATELET VOLUME 7.7 fl (7.4-10.4); MONOCYTES % 13.1 % (2.0-8.0); PLATELET 312 x1000/uL (130-400); RED BLOOD CELL COUNT 4.85 mill/uL (4.2-5.4); RED CELL DISTRIBUTION WIDTH 16.3 % (11.6-14.6)
[2024-01-07 12:34] LABS: BG BASE EXCESS 0.9 mmol/L (-2.0-2.0); BG CARBOXYHEMOGLOBIN 1.3 % (0.5-1.5); BG DEOXYHEMOGLOBIN 4.1 % (0.0-5.0); BG FRACTION INSPIRED OXYGEN 100; BG METHEMOGLOBIN 0.4 % (0.0-1.5); BG OXYGEN SATURATION 95.8 % (92.0-98.5); BG OXYHEMOGLOBIN 94.2 % (94.0-97.0); BG PCO2 116.8 mmHg (35.0-45.0); BG PH 7.094 (7.350-7.450); BG SAMPLE SITE RIGHT RADIAL; BG TOTAL HEMOGLOBIN 15.3 g/dL (12.0-18.0); BG VENT MODE MASK - NRB
[2024-01-07 12:37] LABS: POTASSIUM 6.4 mEq/L (3.5-5.1)
[2024-01-07 12:38] LABS: CREATININE 1.8 mg/dL (0.6-1.0)
[2024-01-07] MEDS ORDERED: FUROSEMIDE 100MG/10ML VIAL IV STA (12:39)
[2024-01-07] MEDS ORDERED: ALBUTEROL (0.083%) 2.5MG/3ML NEB HHN STA (12:42)
[2024-01-07] MEDS ORDERED: IPRATROPIUM BROMIDE (0.02%) 0.5MG/2.5ML NEB HHN STA (12:42)
[2024-01-07] MEDS ORDERED: ALBUTEROL (0.083%) 2.5MG/3ML NEB HHN ONE (12:45)
[2024-01-07] MEDS: CALCIUM CHLORIDE 1GM/10ML SYR IV ONE (12:45)
[2024-01-07] MEDS: INSULIN REGULAR (HUMULIN R) 300UNITS/3ML VIAL IV ONE ×2 (12:45→15:51)
[2024-01-07] MEDS ORDERED: MAGNESIUM/ALUMINUM HYDROXIDE/SIMETHICONE 30ML UDC PO PRN (13:45)
[2024-01-07] MEDS ORDERED: GUAIFENESIN 200MG/10ML SUGAR FREE UDC PO PRN (13:45)
[2024-01-07] MEDS ORDERED: DOCUSATE SODIUM 100MG CAPSULE PO PRN (13:45)
[2024-01-07] MEDS ORDERED: ACETAMINOPHEN 325MG TABLET PO PRN (13:45)
[2024-01-07] MEDS ORDERED: CLONIDINE 0.1MG TABLET PO PRN (13:45)
[2024-01-07] MEDS: ONDANSETRON HCL 4MG/2ML INJ IV ONE (13:56)
[2024-01-07] MEDS: METHYLPREDNISOLONE SOD SUCC 125MG/2ML (ACT-O-VIAL) IV STA (13:56)
[2024-01-07] MEDS: MAGNESIUM 2 G PREMIX 50 ML IV STA (13:57)
[2024-01-07] MEDS: FUROSEMIDE 40MG/4ML VIAL IVP SCH (14:39)
[2024-01-07 14:52] LABS: POTASSIUM 6.2 mEq/L (3.5-5.1)
[2024-01-07] MEDS ORDERED: PIPERACILLIN/TAZO 3.375G/50ML 50 ML IV SCH (15:00)
[2024-01-07] MEDS: SODIUM BICARBONATE 8.4% 1 MEQ/ML 50ML SYR IV ONE ×2 (15:15→15:46)
[2024-01-07] MEDS: ALBUTEROL (0.083%) 2.5MG/3ML NEB HHN NR (15:28)
[2024-01-07] MEDS ORDERED: IPRATROPIUM BROMIDE (0.02%) 0.5MG/2.5ML NEB HHN NR (15:30)
[2024-01-07] MEDS: DEXTROSE 50% WATER 50ML SYRINGE IV ONE ×2 (15:46→15:52)
[2024-01-07] MEDS: CALCIUM GLUCONATE 1,000 MG in DEXT 5% WATER 100 ML IV ONE (15:50)
[2024-01-07 16:30] LABS: BG BASE EXCESS 2.4 mmol/L (-2.0-2.0); BG CARBOXYHEMOGLOBIN 0.8 % (0.5-1.5); BG FRACTION INSPIRED OXYGEN 35; BG HCO3 ACT 34.2 mmol/L (22.0-26.0); BG METHEMOGLOBIN 0.3 % (0.0-1.5); BG OXYGEN SATURATION 90.9 % (92.0-98.5); BG OXYHEMOGLOBIN 89.9 % (94.0-97.0); BG PH 7.179 (7.350-7.450); BG PO2 71.7 mmHg (75.0-100.0); BG SAMPLE SITE RIGHT RADIAL; BG TOTAL HEMOGLOBIN 14.8 g/dL (12.0-18.0); BG TOTAL RESPIRATORY RATE 27 b/min; BG VENT MODE MASK - BIPAP
[2024-01-07] MEDS ORDERED: DEXTROSE 50% WATER 50ML SYRINGE IV PRN (16:30)
[2024-01-07] MEDS: RIVAROXABAN 20 MG TABLET PO SCH (17:00)
[2024-01-07] MEDS: PIPERACILLIN/TAZO 3.375G/50ML 50 ML IV SCH (17:13)
[2024-01-07] MEDS: THEOPHYLLINE ANHYDROUS 80 MG/15 ML 120ML PO SCH (17:40)
[2024-01-07] MEDS: BLOOD SUGAR DIAGNOSTIC STRIP TEST SCH (17:58)
[2024-01-07] MEDS: DEXT 5%/0.45% NACL 1000ML 1,000 ML IV ONE (18:05)
[2024-01-07] MEDS: INSULIN LISPRO 100 UNITS/ML SUBCUT SCH (18:06)
[2024-01-07] MEDS ORDERED: NALOXONE HCL 0.4MG/ML VIAL IV PRN (20:45)
[2024-01-07] MEDS ORDERED: FAMOTIDINE 20MG TABLET PO SCH (21:00)
[2024-01-07] MEDS: IPRATROPIUM/ALBUTEROL 0.5-3(2.5)MG/3ML NEB HHN SCH (21:20)
[2024-01-07] MEDS: METHYLPREDNISOLONE SOD SUCC 40MG/ML (ACT-O-VIAL) IV SCH (21:32)
[2024-01-07] MEDS: PANTOPRAZOLE SODIUM 40 MG/VIAL IV SCH (21:32)
[2024-01-07] MEDS: CARVEDILOL 6.25 MG TABLET PO SCH (21:33)
[2024-01-07] MEDS: FUROSEMIDE 40MG TABLET PO SCH (21:42)
[2024-01-07 21:57] LABS: POTASSIUM 6.6 mEq/L (3.5-5.1)
[2024-01-07] MEDS ORDERED: ALBUTEROL (0.083%) 2.5MG/3ML NEB HHN NR (23:00)
[2024-01-07] MEDS: SODIUM POLYSTYRENE SULFONATE 15 G/60 ML BOT PO NR (23:44)
[2024-01-07] MEDS: CALCIUM CHLORIDE 1GM/10ML SYR IV NR (23:44)
[2024-01-07] MEDS: SODIUM BICARBONATE 8.4% 1 MEQ/ML 50ML SYR IV NR (23:44)
[2024-01-08] VITALS (18 sets, daily range): BP systolic 95–158; BP diastolic 37–120; PULSE 110–141; RESP 17–31; TEMP 97.3–98.5; O2SAT 93–98
[2024-01-08] MEDS: BUDESONIDE 0.5MG/2ML NEB HHN SCH (00:58)
[2024-01-08 06:47] LABS: BASOPHILS % 0.2 % (0.0-2.0); HEMATOCRIT. 41.6 % (36.0-48.0); HEMOGLOBIN. 13.2 g/dL (12.0-16.0); LYMPHOCYTES % 13.6 % (20.0-50.0); MEAN CORPUSCULAR HEMOGLOBIN 28.7 pg (28.0-32.0); MEAN CORPUSCULAR HGB CONC 31.6 g/dL (31.0-37.0); MEAN CORPUSCULAR VOLUME 90.6 fL (81.0-99.0); MONOCYTES % 6.9 % (2.0-8.0); NEUTROPHILS % 79.3 % (40.0-76.0); PLATELET 238 x1000/uL (130-400); RED BLOOD CELL COUNT 4.59 mill/uL (4.2-5.4); RED CELL DISTRIBUTION WIDTH 15.8 % (11.6-14.6); WHITE BLOOD COUNT 6.8 x1000/uL (4.5-11.0)
[2024-01-08 07:28] LABS: ALANINE AMINOTRANSFERASE 30 IU/L (10-49); ALBUMIN 4.3 g/dL (3.2-4.8); ASPARTATE AMINOTRANSFERASE 43 IU/L (<34); BILIRUBIN TOTAL 0.9 mg/dL (0.1-1.0); CALCIUM 9.2 mg/dL (8.7-10.4); CARBON DIOXIDE 33 mEq/L (21-32); CHLORIDE 99 mEq/L (98-107); CREATININE 1.6 mg/dL (0.6-1.0); GLUCOSE 121 mg/dL (70-105); POTASSIUM 5.6 mEq/L (3.5-5.1); PROTEIN TOTAL 8.1 g/dL (6.0-8.3); SODIUM 138 mEq/L (136-145); UREA NITROGEN BLOOD 23 mg/dL (9-23)
[2024-01-08] MEDS: AMIODARONE HCL 200 MG TABLET PO SCH (08:20)
[2024-01-08] MEDS: AMLODIPINE 10MG TABLET PO SCH (08:21)
[2024-01-08] MEDS: LEVOTHYROXINE SODIUM 100MCG TABLET PO SCH (08:34)
[2024-01-08 09:05] LABS: BG BASE EXCESS 6.5 mmol/L (-2.0-2.0); BG DEOXYHEMOGLOBIN 1.4 % (0.0-5.0); BG HCO3 ACT 34.3 mmol/L (22.0-26.0); BG METHEMOGLOBIN 0.2 % (0.0-1.5); BG OXYGEN SATURATION 98.6 % (92.0-98.5); BG OXYHEMOGLOBIN 97.4 % (94.0-97.0); BG PCO2 64.4 mmHg (35.0-45.0); BG PH 7.344 (7.350-7.450); BG PO2 132.3 mmHg (75.0-100.0); BG SAMPLE SITE LEFT RADIAL; BG TOTAL HEMOGLOBIN 13.4 g/dL (12.0-18.0)
[2024-01-08 09:20] LABS: BG VENT MODE MASK-BIPAP
[2024-01-08 09:21] LABS: BG FRACTION INSPIRED OXYGEN 35
[2024-01-08 09:23] LABS: BG BILEVEL POS AIRWAY PRESSURE 18/6
[2024-01-08] MEDS: METOPROLOL TARTRATE 50MG TABLET PO NR (10:00)
[2024-01-08] MEDS ORDERED: DEXTROSE 50% WATER 50ML SYRINGE IV NR (12:30)
[2024-01-08] MEDS: INSULIN REGULAR (HUMULIN R) 300UNITS/3ML VIAL IV NR (12:30)
[2024-01-08] MEDS ORDERED: LIDOCAINE HCL 1% 10 MG/ML 10ML VIAL ONE (14:11)
[2024-01-08] MEDS: ACETAMINOPHEN 325MG TABLET PO PRN (14:52)
[2024-01-08] MEDS: HYDROCODONE/ACETAMINOPHEN 5/325MG TABLET PO PRN (17:39)
[2024-01-09] VITALS (18 sets, daily range): BP systolic 93–151; BP diastolic 59–122; PULSE 74–136; RESP 12–26; TEMP 97–98.2; O2SAT 95–98
[2024-01-09 06:46] LABS: HEMATOCRIT 38.3 % (36.0-48.0); HEMOGLOBIN 12.2 g/dL (12.0-16.0); MEAN CORPUSCULAR HGB CONC 31.7 g/dL (31.0-37.0); MEAN CORPUSCULAR VOLUME 91.2 fL (81.0-99.0); PLATELET 255 x1000/uL (130-400); RED CELL DISTRIBUTION WIDTH 15.6 % (11.6-14.6); WHITE BLOOD COUNT 4.8 x1000/uL (4.5-11.0)
[2024-01-09 07:04] LABS: POTASSIUM 4.8 mEq/L (3.5-5.1)
[2024-01-09 07:10] LABS: CREATININE 1.5 mg/dL (0.6-1.0)
[2024-01-09 08:24] LABS: BG CARBOXYHEMOGLOBIN 0.6 % (0.5-1.5); BG DEOXYHEMOGLOBIN 7.4 % (0.0-5.0); BG FRACTION INSPIRED OXYGEN 32; BG HCO3 ACT 39.4 mmol/L (22.0-26.0); BG METHEMOGLOBIN 0.2 % (0.0-1.5); BG OXYGEN SATURATION 92.5 % (92.0-98.5); BG OXYHEMOGLOBIN 91.8 % (94.0-97.0); BG PCO2 88.4 mmHg (35.0-45.0); BG PH 7.267 (7.350-7.450); BG PO2 75.8 mmHg (75.0-100.0); BG SAMPLE SITE LEFT RADIAL; BG TOTAL HEMOGLOBIN 13.4 g/dL (12.0-18.0); BG VENT MODE NASAL CANNULA
[2024-01-09] MEDS: LISINOPRIL 20MG TABLET PO SCH (10:12)
[2024-01-09] MEDS: SPIRONOLACTONE 25MG TABLET PO SCH (10:14)
[2024-01-09] MEDS: METOPROLOL TARTRATE 50MG TABLET PO SCH (12:30)
[2024-01-10] VITALS (15 sets, daily range): BP systolic 101–147; BP diastolic 62–110; PULSE 70–93; RESP 13–20; TEMP 97.5–98.3; O2SAT 96–98
[2024-01-10 08:29] LABS: HEMATOCRIT 38.1 % (36.0-48.0); HEMOGLOBIN 12.1 g/dL (12.0-16.0); MEAN CORPUSCULAR HEMOGLOBIN 28.7 pg (28.0-32.0); MEAN CORPUSCULAR HGB CONC 31.9 g/dL (31.0-37.0); PLATELET 264 x1000/uL (130-400); RED BLOOD CELL COUNT 4.23 mill/uL (4.2-5.4); RED CELL DISTRIBUTION WIDTH 15.2 % (11.6-14.6); WHITE BLOOD COUNT 4.6 x1000/uL (4.5-11.0)
[2024-01-10 08:35] LABS: CALCIUM 8.9 mg/dL (8.7-10.4); CHLORIDE 92 mEq/L (98-107); POTASSIUM 4.8 mEq/L (3.5-5.1); SODIUM 135 mEq/L (136-145)
[2024-01-10 08:36] LABS: CARBON DIOXIDE > 40 mEq/L (21-32)
[2024-01-10 08:40] LABS: CREATININE 1.3 mg/dL (0.6-1.0); GLUCOSE 173 mg/dL (70-105)
[2024-01-10 08:41] LABS: UREA NITROGEN BLOOD 32 mg/dL (9-23)
[2024-01-10 10:42] LABS: BG BASE EXCESS 10.8 mmol/L (-2.0-2.0); BG CARBOXYHEMOGLOBIN 1.1 % (0.5-1.5); BG DEOXYHEMOGLOBIN 4.2 % (0.0-5.0); BG FRACTION INSPIRED OXYGEN 32; BG HCO3 ACT 40.9 mmol/L (22.0-26.0); BG METHEMOGLOBIN 0.2 % (0.0-1.5); BG OXYGEN SATURATION 95.7 % (92.0-98.5); BG OXYHEMOGLOBIN 94.5 % (94.0-97.0); BG PCO2 83.1 mmHg (35.0-45.0); BG PO2 86.6 mmHg (75.0-100.0); BG SAMPLE SITE RIGHT RADIAL; BG TOTAL HEMOGLOBIN 14.6 g/dL (12.0-18.0); BG VENT MODE NASAL CANNULA
[2024-01-10] MEDS: METHYLPREDNISOLONE SOD SUCC 40MG/ML (ACT-O-VIAL) IV SCH (21:56)
[2024-01-11] VITALS (19 sets, daily range): BP systolic 109–140; BP diastolic 68–98; PULSE 70–96; RESP 14–27; TEMP 97.1–98.9; O2SAT 95–98
[2024-01-11 08:20] LABS: HEMATOCRIT 38.2 % (36.0-48.0); HEMOGLOBIN 11.8 g/dL (12.0-16.0); MEAN CORPUSCULAR HEMOGLOBIN 28.5 pg (28.0-32.0); MEAN CORPUSCULAR HGB CONC 30.8 g/dL (31.0-37.0); MEAN CORPUSCULAR VOLUME 92.6 fL (81.0-99.0); PLATELET 242 x1000/uL (130-400); RED BLOOD CELL COUNT 4.13 mill/uL (4.2-5.4); RED CELL DISTRIBUTION WIDTH 15.6 % (11.6-14.6); WHITE BLOOD COUNT 5.4 x1000/uL (4.5-11.0)
[2024-01-11 08:28] LABS: CHLORIDE 89 mEq/L (98-107); POTASSIUM 4.8 mEq/L (3.5-5.1); SODIUM 133 mEq/L (136-145)
[2024-01-11 08:30] LABS: CALCIUM 8.4 mg/dL (8.7-10.4)
[2024-01-11 08:34] LABS: CREATININE 1.3 mg/dL (0.6-1.0); GLUCOSE 238 mg/dL (70-105); UREA NITROGEN BLOOD 29 mg/dL (9-23)
[2024-01-11] MEDS: FAMOTIDINE 20MG TABLET PO SCH (08:37)
[2024-01-11 08:38] LABS: CARBON DIOXIDE > 40 mEq/L (21-32)
[2024-01-12] VITALS (14 sets, daily range): BP systolic 100–137; BP diastolic 68–85; PULSE 78–109; RESP 11–26; TEMP 97.3–98.3; O2SAT 95–97
[2024-01-12 06:19] LABS: POTASSIUM 4.9 mEq/L (3.5-5.1)
[2024-01-12 06:20] LABS: CALCIUM 9.2 mg/dL (8.7-10.4)
[2024-01-12 06:25] LABS: CREATININE 1.3 mg/dL (0.6-1.0)
[2024-01-12] MEDS ORDERED: METO-539 PO (10:50)
[2024-01-12] MEDS ORDERED: P20 MT (10:50)
[2024-01-12] MEDS ORDERED: FAMO20TA8 PO (10:50)
== END 2024-01-12 18:04 | disposition home or self-care (01) | DRG 133 ==
LOC: ER 11:33 → EDBEDREQTM 12:46 → EDBEDREQ 12:46 → 5EST 19:01
PROVIDERS: ADMIT Internal Medicine; ATTEND Internal Medicine
PROC: 5A09357 Assistance with Respiratory Ventilation, Less than 24 Consecutive Hours, Continuous Positive Airway Pressure (ICD-10-PCS; principal; 2024-01-07)
PROC: 5A09357 Assistance with Respiratory Ventilation, Less than 24 Consecutive Hours, Continuous Positive Airway Pressure (ICD-10-PCS; 2024-01-08)
PROC: 02HV33Z Insertion of Infusion Device into Superior Vena Cava, Percutaneous Approach (ICD-10-PCS; 2024-01-08)
PROC: B548ZZA Ultrasonography of Superior Vena Cava, Guidance (ICD-10-PCS; 2024-01-08)
PROC: 5A09357 Assistance with Respiratory Ventilation, Less than 24 Consecutive Hours, Continuous Positive Airway Pressure (ICD-10-PCS; 2024-01-09)
PROC: 5A09357 Assistance with Respiratory Ventilation, Less than 24 Consecutive Hours, Continuous Positive Airway Pressure (ICD-10-PCS; 2024-01-11)
DX: J96.21 Acute and chronic respiratory failure with hypoxia (principal); N17.0 Acute kidney failure with tubular necrosis; I50.43 Acute on chronic combined systolic (congestive) and diastolic (congestive) heart failure; I27.20 Pulmonary hypertension, unspecified; E87.4 Mixed disorder of acid-base balance; Z68.45 Body mass index [BMI] 70 or greater, adult; I47.10 Supraventricular tachycardia, unspecified; I11.0 Hypertensive heart disease with heart failure; I48.19 Other persistent atrial fibrillation; E11.9 Type 2 diabetes mellitus without complications; E66.01 Morbid (severe) obesity due to excess calories; E87.5 Hyperkalemia; I87.8 Other specified disorders of veins; J44.0 Chronic obstructive pulmonary disease with (acute) lower respiratory infection; J96.22 Acute and chronic respiratory failure with hypercapnia; Z86.73 Personal history of transient ischemic attack (TIA), and cerebral infarction without residual deficits; E03.9 Hypothyroidism, unspecified; G47.33 Obstructive sleep apnea (adult) (pediatric); E78.5 Hyperlipidemia, unspecified; Z74.01 Bed confinement status; Z79.01 Long term (current) use of anticoagulants; Z79.4 Long term (current) use of insulin; Z79.84 Long term (current) use of oral hypoglycemic drugs; Z79.899 Other long term (current) drug therapy; Z88.6 Allergy status to analgesic agent; Z99.81 Dependence on supplemental oxygen
CPT/HCPCS: 36415; 36573; 36600; 71045; 80048; 80053; 82375; 82805; 82962; 83036; 83735; 83880; 84132; 84145; 84484; 85025; 85027; 85379; 93005; 94640; 94644; 94660; 99291; C1725; C9113; J0610; J1815; J1940; J2405; J2543; J2920; J2930; J3475; J3490; J7060; J7626

== ENCOUNTER 2024-02-15 11:55 | Inpatient (IN) | payer MEDICARE, MEDICAID ==
[2024-02-15] VITALS (7 sets, daily range): BP systolic 94–123; BP diastolic 75–98; PULSE 109–120; RESP 22–34; TEMP 97.1–97.3
[~2024-02-15] VITALS: Ht 172.7 cm; Wt 215.6 kg
[~2024-02-15 11:55] MED LIST changes: -CARV6.2548 PO; -CEPH500C2 MT; -LEVO-65 MT; +METO-539 PO
[2024-02-15] MEDS ORDERED: LACTATED RINGERS 1,000 ML IV SCH (12:45)
[2024-02-15] MEDS: NOREPINEPHRINE 8MG/250ML PMX 250 ML IV ONE (12:45)
[2024-02-15] MEDS ORDERED: IPRATROPIUM BROMIDE (0.02%) 0.5MG/2.5ML NEB HHN STA (12:57)
[2024-02-15] MEDS ORDERED: METHYLPREDNISOLONE SOD SUCC 125MG/2ML (ACT-O-VIAL) IV STA (12:57)
[2024-02-15] MEDS ORDERED: ALBUTEROL (0.083%) 2.5MG/3ML NEB HHN SCH (13:00)
[2024-02-15 14:41] LABS: BG BASE EXCESS 1.9 mmol/L (-2.0-2.0); BG CARBOXYHEMOGLOBIN 0.7 % (0.5-1.5); BG DEOXYHEMOGLOBIN 0.8 % (0.0-5.0); BG FRACTION INSPIRED OXYGEN 100; BG HCO3 ACT 36.8 mmol/L (22.0-26.0); BG METHEMOGLOBIN 0.8 % (0.0-1.5); BG OXYGEN SATURATION 99.2 % (92.0-98.5); BG OXYHEMOGLOBIN 97.7 % (94.0-97.0); BG PCO2 132.2 mmHg (35.0-45.0); BG PH 7.063 (7.350-7.450); BG PO2 212.6 mmHg (75.0-100.0); BG SAMPLE SITE RIGHT RADIAL; BG TOTAL HEMOGLOBIN 14.6 g/dL (12.0-18.0); BG TOTAL RESPIRATORY RATE 20 b/min; BG VENT MODE MASK - BIPAP
[2024-02-15 14:55] LABS: BASOPHILS % 0.5 % (0.0-2.0); DIFFERENTIAL COMMENT 0; EOSINOPHILS % 0.5 % (0.0-5.0); HEMATOCRIT. 43.9 % (36.0-48.0); HEMOGLOBIN. 13.5 g/dL (12.0-16.0); LYMPHOCYTES % 18.7 % (20.0-50.0); MEAN CORPUSCULAR HEMOGLOBIN 28.6 pg (28.0-32.0); MEAN CORPUSCULAR HGB CONC 30.7 g/dL (31.0-37.0); MEAN CORPUSCULAR VOLUME 93.1 fL (81.0-99.0); MEAN PLATELET VOLUME 7.2 fl (7.4-10.4); MONOCYTES % 14.9 % (2.0-8.0); NEUTROPHILS % 65.4 % (40.0-76.0); PLATELET 248 x1000/uL (130-400); RED BLOOD CELL COUNT 4.72 mill/uL (4.2-5.4); RED CELL DISTRIBUTION WIDTH 16.8 % (11.6-14.6); WHITE BLOOD COUNT 6.7 x1000/uL (4.5-11.0)
[2024-02-15 15:03] LABS: CHLORIDE 102 mEq/L (98-107); POTASSIUM 5.6 mEq/L (3.5-5.1); SODIUM 140 mEq/L (136-145)
[2024-02-15 15:04] LABS: CALCIUM 9.1 mg/dL (8.7-10.4); CARBON DIOXIDE 39 mEq/L (21-32)
[2024-02-15 15:09] LABS: CREATININE 1.6 mg/dL (0.6-1.0); GLUCOSE 134 mg/dL (70-105); UREA NITROGEN BLOOD 19 mg/dL (9-23)
[2024-02-15 15:10] LABS: TROPONIN I HIGH SENSITIVITY 25 ng/L (3.0-34)
[2024-02-15 15:11] LABS: ALANINE AMINOTRANSFERASE 9 IU/L (10-49); ALBUMIN 4.3 g/dL (3.2-4.8); ASPARTATE AMINOTRANSFERASE 22 IU/L (<34); BILIRUBIN TOTAL 0.4 mg/dL (0.1-1.0); PROTEIN TOTAL 7.1 g/dL (6.0-8.3)
[2024-02-15] MEDS: METHYLPREDNISOLONE SOD SUCC 125MG/2ML (ACT-O-VIAL) IV NR (16:06)
[2024-02-15 16:50] LABS: BG BASE EXCESS 7.9 mmol/L (-2.0-2.0); BG CARBOXYHEMOGLOBIN 1.2 % (0.5-1.5); BG DEOXYHEMOGLOBIN 7.6 % (0.0-5.0); BG FRACTION INSPIRED OXYGEN 40; BG HCO3 ACT 41.5 mmol/L (22.0-26.0); BG METHEMOGLOBIN 0.2 % (0.0-1.5); BG OXYGEN SATURATION 92.3 % (92.0-98.5); BG PH 7.164 (7.350-7.450); BG PO2 69.7 mmHg (75.0-100.0); BG SAMPLE SITE RIGHT RADIAL; BG TOTAL HEMOGLOBIN 14.6 g/dL (12.0-18.0); BG TOTAL RESPIRATORY RATE 33 b/min; BG VENT MODE MASK - BIPAP
[2024-02-15] MEDS: IPRATROPIUM BROMIDE (0.02%) 0.5MG/2.5ML NEB HHN NR (17:43)
[2024-02-15] MEDS: ALBUTEROL (0.083%) 2.5MG/3ML NEB HHN SCH (17:43)
[2024-02-15] MEDS: MIDODRINE HCL 2.5MG TABLET PO NR (19:45)
[2024-02-15] MEDS ORDERED: DEXTROSE 50% WATER 50ML SYRINGE IV PRN (20:30)
[2024-02-15] MEDS: BLOOD SUGAR DIAGNOSTIC STRIP TEST SCH (21:00)
[2024-02-15] MEDS: INSULIN LISPRO 100 UNITS/ML SUBCUT SCH (21:00)
[2024-02-15] MEDS ORDERED: ACETAMINOPHEN 325MG TABLET PO PRN ×2 (21:15)
[2024-02-15] MEDS: FUROSEMIDE 40MG/4ML VIAL IV SCH (21:30)
[2024-02-15] MEDS ORDERED: DEXT 5%/0.9% NACL 500 ML IV ONE (21:30)
[2024-02-15] MEDS ORDERED: GUAIFENESIN 200MG/10ML SUGAR FREE UDC PO PRN (21:30)
[2024-02-15] MEDS ORDERED: ENOXAPARIN 40MG/0.4ML SYR SUBCUT SCH (22:00)
[2024-02-15] MEDS ORDERED: MAGNESIUM/ALUMINUM HYDROXIDE/SIMETHICONE 30ML UDC PO PRN (22:00)
[2024-02-15] MEDS: METHYLPREDNISOLONE SOD SUCC 40MG/ML (ACT-O-VIAL) IV SCH (23:27)
[2024-02-15] MEDS: SODIUM POLYSTYRENE SULFONATE 15 G/60 ML BOT PO NR (23:27)
[2024-02-16] VITALS (17 sets, daily range): BP systolic 96–137; BP diastolic 48–111; PULSE 89–148; RESP 14–30; TEMP 97.1–98.6; O2SAT 97–98
[2024-02-16] MEDS: IPRATROPIUM/ALBUTEROL 0.5-3(2.5)MG/3ML NEB HHN SCH ×2 (00:30→18:01)
[2024-02-16 06:51] LABS: BASOPHILS % 0.2 % (0.0-2.0); HEMATOCRIT. 42.5 % (36.0-48.0); HEMOGLOBIN. 13.2 g/dL (12.0-16.0); LYMPHOCYTES % 11.2 % (20.0-50.0); MEAN CORPUSCULAR HEMOGLOBIN 28.4 pg (28.0-32.0); MEAN CORPUSCULAR HGB CONC 31.2 g/dL (31.0-37.0); MEAN PLATELET VOLUME 7.3 fl (7.4-10.4); MONOCYTES % 2.1 % (2.0-8.0); NEUTROPHILS % 86.5 % (40.0-76.0); PLATELET 247 x1000/uL (130-400); RED BLOOD CELL COUNT 4.67 mill/uL (4.2-5.4); RED CELL DISTRIBUTION WIDTH 16.6 % (11.6-14.6)
[2024-02-16 07:03] LABS: POTASSIUM 5.9 mEq/L (3.5-5.1)
[2024-02-16 07:04] LABS: CALCIUM 9.1 mg/dL (8.7-10.4)
[2024-02-16 07:09] LABS: CREATININE 1.7 mg/dL (0.6-1.0)
[2024-02-16 07:12] LABS: THYROID STIMULATING HORMONE 16.29 uIU/mL (0.55-4.78)
[2024-02-16 08:05] LABS: BG BASE EXCESS 7.2 mmol/L (-2.0-2.0); BG CARBOXYHEMOGLOBIN 0.8 % (0.5-1.5); BG FRACTION INSPIRED OXYGEN 75; BG HCO3 ACT 39.3 mmol/L (22.0-26.0); BG METHEMOGLOBIN 0.3 % (0.0-1.5); BG OXYHEMOGLOBIN 97.9 % (94.0-97.0); BG PCO2 101.7 mmHg (35.0-45.0); BG PH 7.205 (7.350-7.450); BG PO2 156.8 mmHg (75.0-100.0); BG SAMPLE SITE RIGHT RADIAL; BG TOTAL HEMOGLOBIN 14.3 g/dL (12.0-18.0); BG VENT MODE MASK - BIPAP
[2024-02-16] MEDS ORDERED: NALOXONE HCL 0.4MG/ML VIAL IV PRN (08:15)
[2024-02-16] MEDS: AMIODARONE HCL 200 MG TABLET PO SCH (08:18)
[2024-02-16] MEDS: SODIUM POLYSTYRENE SULFONATE 15 G/60 ML BOT PO NR (08:19)
[2024-02-16] MEDS: LEVOTHYROXINE SODIUM 100MCG TABLET PO SCH (08:19)
[2024-02-16] MEDS ORDERED: MIDODRINE HCL 5MG TABLET PO SCH (09:00)
[2024-02-16 10:56] LABS: CHLORIDE 101 mEq/L (98-107); POTASSIUM 5.8 mEq/L (3.5-5.1); SODIUM 141 mEq/L (136-145)
[2024-02-16 10:57] LABS: CALCIUM 9.1 mg/dL (8.7-10.4); CARBON DIOXIDE 37 mEq/L (21-32)
[2024-02-16 11:02] LABS: CREATININE 1.8 mg/dL (0.6-1.0); GLUCOSE 158 mg/dL (70-105)
[2024-02-16 11:03] LABS: UREA NITROGEN BLOOD 20 mg/dL (9-23)
[2024-02-16 11:05] LABS: PHOSPHORUS 6.1 mg/dL (2.5-4.9)
[2024-02-16] MEDS: POLYETHYLENE GLYCOL 3350 (17GM) 1 DOSE PACK PO SCH (12:39)
[2024-02-16] MEDS: AMIODARONE HCL 900 MG in DEXT 5% WATER 482 ML IV SCH (15:09)
[2024-02-16] MEDS: CALCIUM GLUCONATE 1GM PREMIX 50 ML IV SCH (15:28)
[2024-02-16] MEDS: PANTOPRAZOLE SODIUM 40 MG/VIAL IV SCH (15:28)
[2024-02-16] MEDS: RIVAROXABAN 20 MG TABLET PO SCH (16:11)
[2024-02-16] MEDS: AZITHROMYCIN 500 MG TABLET PO SCH (16:11)
[2024-02-16] MEDS: BUDESONIDE 0.5MG/2ML NEB HHN SCH (19:54)
[2024-02-16 21:43] LABS: POTASSIUM 5.2 mEq/L (3.5-5.1)
[2024-02-16 21:45] LABS: CALCIUM 9.1 mg/dL (8.7-10.4)
[2024-02-16 21:49] LABS: CREATININE 1.9 mg/dL (0.6-1.0)
[2024-02-17] VITALS (16 sets, daily range): BP systolic 100–137; BP diastolic 51–107; PULSE 88–142; RESP 13–25; TEMP 97.4–98.8; O2SAT 92
[2024-02-17] MEDS: SODIUM POLYSTYRENE SULFONATE 15 G/60 ML BOT PO NR (08:31)
[2024-02-17 08:58] LABS: BG BASE EXCESS 8.2 mmol/L (-2.0-2.0); BG CARBOXYHEMOGLOBIN 0.3 % (0.5-1.5); BG DEOXYHEMOGLOBIN 4.2 % (0.0-5.0); BG FRACTION INSPIRED OXYGEN 44; BG HCO3 ACT 38.7 mmol/L (22.0-26.0); BG METHEMOGLOBIN 0.1 % (0.0-1.5); BG OXYGEN SATURATION 95.8 % (92.0-98.5); BG OXYHEMOGLOBIN 95.4 % (94.0-97.0); BG PCO2 87.3 mmHg (35.0-45.0); BG PH 7.264 (7.350-7.450); BG PO2 91.6 mmHg (75.0-100.0); BG SAMPLE SITE RIGHT RADIAL; BG TOTAL HEMOGLOBIN 13.8 g/dL (12.0-18.0); BG VENT MODE NASAL CANNULA
[2024-02-17] MEDS ORDERED: LIDOCAINE HCL 1% 10 MG/ML 10ML VIAL ONE (09:20)
[2024-02-17 09:54] LABS: BASOPHILS % 0.1 % (0.0-2.0); HEMATOCRIT. 41.1 % (36.0-48.0); HEMOGLOBIN. 12.9 g/dL (12.0-16.0); LYMPHOCYTES % 8.1 % (20.0-50.0); MEAN CORPUSCULAR HEMOGLOBIN 28.3 pg (28.0-32.0); MEAN CORPUSCULAR HGB CONC 31.4 g/dL (31.0-37.0); MEAN CORPUSCULAR VOLUME 90.3 fL (81.0-99.0); MEAN PLATELET VOLUME 7.7 fl (7.4-10.4); MONOCYTES % 6.4 % (2.0-8.0); NEUTROPHILS % 85.4 % (40.0-76.0); PLATELET 295 x1000/uL (130-400); RED BLOOD CELL COUNT 4.55 mill/uL (4.2-5.4); RED CELL DISTRIBUTION WIDTH 16.4 % (11.6-14.6); WHITE BLOOD COUNT 8.7 x1000/uL (4.5-11.0)
[2024-02-17 09:56] LABS: CHLORIDE 97 mEq/L (98-107); POTASSIUM 4.7 mEq/L (3.5-5.1); SODIUM 136 mEq/L (136-145)
[2024-02-17 09:57] LABS: CALCIUM 9.2 mg/dL (8.7-10.4); CARBON DIOXIDE 33 mEq/L (21-32)
[2024-02-17 10:02] LABS: CREATININE 1.9 mg/dL (0.6-1.0); GLUCOSE 193 mg/dL (70-105); UREA NITROGEN BLOOD 31 mg/dL (9-23)
[2024-02-17 10:04] LABS: PHOSPHORUS 4.9 mg/dL (2.5-4.9)
[2024-02-17 10:08] LABS: TROPONIN I HIGH SENSITIVITY 55 ng/L (3.0-34)
[2024-02-17] MEDS: CARVEDILOL 3.125 MG TABLET PO SCH (11:00)
[2024-02-17] MEDS: IPRATROPIUM BROMIDE (0.02%) 0.5MG/2.5ML NEB HHN SCH (13:46)
[2024-02-17] MEDS: MONTELUKAST SODIUM 10MG TABLET PO SCH (15:30)
[2024-02-17] MEDS: IPRATROPIUM/ALBUTEROL 0.5-3(2.5)MG/3ML NEB HHN PRN (20:07)
[2024-02-18] VITALS (12 sets, daily range): BP systolic 124–153; BP diastolic 82–119; PULSE 77–110; RESP 12–20; TEMP 97–98.7; O2SAT 93–98
[2024-02-18] MEDS: ACETYLCYSTEINE 200MG/ML 20% VIAL 4ML INH SCH (01:20)
[2024-02-18 07:12] LABS: BASOPHILS % 0.2 % (0.0-2.0); HEMATOCRIT. 38.2 % (36.0-48.0); LYMPHOCYTES % 9.3 % (20.0-50.0); MEAN CORPUSCULAR HEMOGLOBIN 27.8 pg (28.0-32.0); MEAN CORPUSCULAR HGB CONC 31.4 g/dL (31.0-37.0); MEAN CORPUSCULAR VOLUME 88.5 fL (81.0-99.0); MEAN PLATELET VOLUME 7.4 fl (7.4-10.4); MONOCYTES % 3.9 % (2.0-8.0); NEUTROPHILS % 86.6 % (40.0-76.0); PLATELET 217 x1000/uL (130-400); RED BLOOD CELL COUNT 4.32 mill/uL (4.2-5.4); WHITE BLOOD COUNT 5.1 x1000/uL (4.5-11.0)
[2024-02-18 07:32] LABS: CHLORIDE 98 mEq/L (98-107); POTASSIUM 4.5 mEq/L (3.5-5.1); SODIUM 140 mEq/L (136-145)
[2024-02-18 07:35] LABS: CALCIUM 8.8 mg/dL (8.7-10.4); CARBON DIOXIDE 39 mEq/L (21-32)
[2024-02-18 07:40] LABS: CREATININE 1.4 mg/dL (0.6-1.0); GLUCOSE 153 mg/dL (70-105); UREA NITROGEN BLOOD 37 mg/dL (9-23)
[2024-02-18 07:42] LABS: ALANINE AMINOTRANSFERASE 15 IU/L (10-49); ASPARTATE AMINOTRANSFERASE 22 IU/L (<34); BILIRUBIN DIRECT 0.2 mg/dL (<=3.0); BILIRUBIN TOTAL 0.5 mg/dL (0.1-1.0); PROTEIN TOTAL 6.5 g/dL (6.0-8.3)
[2024-02-18 07:53] LABS: HEPATITIS B SURFACE ANTIGEN NEGATIVE (Negative)
[2024-02-18 08:14] LABS: HEPATITIS A AB IGM NEGATIVE (Negative); HEPATITIS B CORE AB IGM NEGATIVE (Negative)
[2024-02-18 08:15] LABS: HEPATITIS C AB NON REACTIVE (Neg) (Negative)
[2024-02-18] MEDS: DIGOXIN 500MCG/2ML AMP IV NR (18:55)
[2024-02-18] MEDS: DOCUSATE SODIUM 100MG CAPSULE PO PRN (19:18)
[2024-02-18] MEDS: HYDROCODONE/ACETAMINOPHEN 5/325MG TABLET PO PRN (23:26)
[2024-02-19] VITALS (17 sets, daily range): BP systolic 120–159; BP diastolic 66–115; PULSE 83–110; RESP 13–23; TEMP 96.7–97.9; O2SAT 93–97
[2024-02-19] MEDS: ONDANSETRON HCL 4MG/2ML INJ IV PRN (07:23)
[2024-02-19 07:26] LABS: BASOPHILS % 0.2 % (0.0-2.0); HEMATOCRIT. 37.7 % (36.0-48.0); HEMOGLOBIN. 12.1 g/dL (12.0-16.0); LYMPHOCYTES % 11.8 % (20.0-50.0); MEAN CORPUSCULAR HEMOGLOBIN 28.6 pg (28.0-32.0); MEAN CORPUSCULAR HGB CONC 32.2 g/dL (31.0-37.0); MEAN PLATELET VOLUME 7.5 fl (7.4-10.4); MONOCYTES % 3.5 % (2.0-8.0); NEUTROPHILS % 84.5 % (40.0-76.0); PLATELET 224 x1000/uL (130-400); RED BLOOD CELL COUNT 4.23 mill/uL (4.2-5.4); RED CELL DISTRIBUTION WIDTH 15.8 % (11.6-14.6); WHITE BLOOD COUNT 4.1 x1000/uL (4.5-11.0)
[2024-02-19 07:48] LABS: POTASSIUM 4.7 mEq/L (3.5-5.1)
[2024-02-19 07:50] LABS: CALCIUM 9.1 mg/dL (8.7-10.4)
[2024-02-19 07:53] LABS: CREATININE 1.1 mg/dL (0.6-1.0)
[2024-02-19] MEDS: DOXYCYCLINE HYCLATE 100MG CAPSULE PO SCH (09:04)
[2024-02-19] MEDS ORDERED: PREG200C29 PO (13:25)
[2024-02-19] MEDS ORDERED: SENN-371 PO (13:25)
[2024-02-19] MEDS ORDERED: LEVO150T8 PO (13:25)
[2024-02-19] MEDS ORDERED: ISOS10TA2 PO (13:28)
[2024-02-20] VITALS (16 sets, daily range): BP systolic 105–161; BP diastolic 73–135; PULSE 80–120; RESP 16–24; TEMP 96.8–99; O2SAT 97
[2024-02-20 07:47] LABS: BASOPHILS % 0.1 % (0.0-2.0); EOSINOPHILS % 0.1 % (0.0-5.0); HEMATOCRIT. 42.3 % (36.0-48.0); HEMOGLOBIN. 13.5 g/dL (12.0-16.0); LYMPHOCYTES % 10.3 % (20.0-50.0); MEAN CORPUSCULAR HEMOGLOBIN 28.1 pg (28.0-32.0); MEAN CORPUSCULAR HGB CONC 31.9 g/dL (31.0-37.0); MEAN CORPUSCULAR VOLUME 88.1 fL (81.0-99.0); MEAN PLATELET VOLUME 7.5 fl (7.4-10.4); MONOCYTES % 4.3 % (2.0-8.0); NEUTROPHILS % 85.2 % (40.0-76.0); PLATELET 226 x1000/uL (130-400); RED BLOOD CELL COUNT 4.81 mill/uL (4.2-5.4); WHITE BLOOD COUNT 4.2 x1000/uL (4.5-11.0)
[2024-02-20 08:05] LABS: CHLORIDE 96 mEq/L (98-107); POTASSIUM 5.1 mEq/L (3.5-5.1); SODIUM 139 mEq/L (136-145)
[2024-02-20 08:07] LABS: CALCIUM 9.4 mg/dL (8.7-10.4); CARBON DIOXIDE 38 mEq/L (21-32)
[2024-02-20 08:12] LABS: CREATININE 1.1 mg/dL (0.6-1.0); GLUCOSE 171 mg/dL (70-105); UREA NITROGEN BLOOD 30 mg/dL (9-23)
[2024-02-20 08:14] LABS: ALANINE AMINOTRANSFERASE 17 IU/L (10-49); ALBUMIN 4.1 g/dL (3.2-4.8); ASPARTATE AMINOTRANSFERASE 20 IU/L (<34); BILIRUBIN DIRECT 0.3 mg/dL (<=3.0); BILIRUBIN TOTAL 0.8 mg/dL (0.1-1.0)
[2024-02-20] MEDS: CLONIDINE 0.1MG TABLET PO PRN (12:27)
[2024-02-20] MEDS: HYDRALAZINE 20MG/ML VIAL IV PRN (13:40)
[2024-02-20] MEDS: AMLODIPINE 10MG TABLET PO SCH (18:15)
[2024-02-21] VITALS (14 sets, daily range): BP systolic 131–174; BP diastolic 48–128; PULSE 69–110; RESP 13–25; TEMP 97.5–97.9; O2SAT 94–99
[2024-02-21 07:33] LABS: BASOPHILS % 0.1 % (0.0-2.0); HEMATOCRIT. 44.5 % (36.0-48.0); HEMOGLOBIN. 14.1 g/dL (12.0-16.0); LYMPHOCYTES % 8.4 % (20.0-50.0); MEAN CORPUSCULAR HEMOGLOBIN 27.9 pg (28.0-32.0); MEAN CORPUSCULAR HGB CONC 31.7 g/dL (31.0-37.0); MEAN PLATELET VOLUME 7.4 fl (7.4-10.4); NEUTROPHILS % 85.5 % (40.0-76.0); PLATELET 220 x1000/uL (130-400); RED BLOOD CELL COUNT 5.05 mill/uL (4.2-5.4); RED CELL DISTRIBUTION WIDTH 15.8 % (11.6-14.6); WHITE BLOOD COUNT 5.4 x1000/uL (4.5-11.0)
[2024-02-21 07:41] LABS: CHLORIDE 96 mEq/L (98-107); SODIUM 138 mEq/L (136-145)
[2024-02-21 07:43] LABS: CARBON DIOXIDE 40 mEq/L (21-32)
[2024-02-21 07:44] LABS: CALCIUM 9.3 mg/dL (8.7-10.4)
[2024-02-21 07:49] LABS: ALANINE AMINOTRANSFERASE 25 IU/L (10-49); GLUCOSE 220 mg/dL (70-105); UREA NITROGEN BLOOD 22 mg/dL (9-23)
[2024-02-21 07:50] LABS: ALBUMIN 3.6 g/dL (3.2-4.8); ASPARTATE AMINOTRANSFERASE 29 IU/L (<34)
[2024-02-21 07:51] LABS: BILIRUBIN DIRECT 0.4 mg/dL (<=3.0); BILIRUBIN TOTAL 0.9 mg/dL (0.1-1.0); PROTEIN TOTAL 6.5 g/dL (6.0-8.3)
[2024-02-21] MEDS ORDERED: AMLODIPINE 5MG TABLET PO SCH (09:00)
[2024-02-21] MEDS ORDERED: AMLO10TA80 PO (14:47)
[2024-02-21] MEDS: METOPROLOL TARTRATE 50MG TABLET PO SCH (20:18)
[2024-02-22] VITALS (9 sets, daily range): BP systolic 122–155; BP diastolic 77–133; PULSE 68–100; RESP 13–23; TEMP 97.3–98.1; O2SAT 89–96
== END 2024-02-22 12:52 | disposition home health service (06) | DRG 241 ==
LOC: ER 13:11 → 5EST 16:53 → EDBEDREQ 17:01 → EDBEDREQTM 17:01
PROVIDERS: ADMIT Internal Medicine; ATTEND Internal Medicine
PROC: 5A09357 Assistance with Respiratory Ventilation, Less than 24 Consecutive Hours, Continuous Positive Airway Pressure (ICD-10-PCS; principal; 2024-02-15)
PROC: 5A09357 Assistance with Respiratory Ventilation, Less than 24 Consecutive Hours, Continuous Positive Airway Pressure (ICD-10-PCS; 2024-02-16)
PROC: 5A09357 Assistance with Respiratory Ventilation, Less than 24 Consecutive Hours, Continuous Positive Airway Pressure (ICD-10-PCS; 2024-02-17)
PROC: 05HY33Z Insertion of Infusion Device into Upper Vein, Percutaneous Approach (ICD-10-PCS; 2024-02-17)
PROC: B54MZZA Ultrasonography of Right Upper Extremity Veins, Guidance (ICD-10-PCS; 2024-02-17)
PROC: 5A09357 Assistance with Respiratory Ventilation, Less than 24 Consecutive Hours, Continuous Positive Airway Pressure (ICD-10-PCS; 2024-02-18)
PROC: 5A09357 Assistance with Respiratory Ventilation, Less than 24 Consecutive Hours, Continuous Positive Airway Pressure (ICD-10-PCS; 2024-02-19)
PROC: 5A09357 Assistance with Respiratory Ventilation, Less than 24 Consecutive Hours, Continuous Positive Airway Pressure (ICD-10-PCS; 2024-02-20)
PROC: 5A09357 Assistance with Respiratory Ventilation, Less than 24 Consecutive Hours, Continuous Positive Airway Pressure (ICD-10-PCS; 2024-02-21)
DX: K29.70 Gastritis, unspecified, without bleeding (principal); J96.21 Acute and chronic respiratory failure with hypoxia; N17.0 Acute kidney failure with tubular necrosis; I50.23 Acute on chronic systolic (congestive) heart failure; E87.4 Mixed disorder of acid-base balance; I27.20 Pulmonary hypertension, unspecified; E83.39 Other disorders of phosphorus metabolism; J44.1 Chronic obstructive pulmonary disease with (acute) exacerbation; K27.9 Peptic ulcer, site unspecified, unspecified as acute or chronic, without hemorrhage or perforation; I11.0 Hypertensive heart disease with heart failure; I48.19 Other persistent atrial fibrillation; Z68.45 Body mass index [BMI] 70 or greater, adult; J96.22 Acute and chronic respiratory failure with hypercapnia; E03.9 Hypothyroidism, unspecified; E11.65 Type 2 diabetes mellitus with hyperglycemia; E66.01 Morbid (severe) obesity due to excess calories; E78.5 Hyperlipidemia, unspecified; E87.5 Hyperkalemia; I48.91 Unspecified atrial fibrillation; T38.0X5A Adverse effect of glucocorticoids and synthetic analogues, initial encounter; I87.8 Other specified disorders of veins; Z99.81 Dependence on supplemental oxygen; Z53.20 Procedure and treatment not carried out because of patient's decision for unspecified reasons; K80.20 Calculus of gallbladder without cholecystitis without obstruction; K76.0 Fatty (change of) liver, not elsewhere classified; J84.9 Interstitial pulmonary disease, unspecified; I87.2 Venous insufficiency (chronic) (peripheral); I45.10 Unspecified right bundle-branch block; G47.33 Obstructive sleep apnea (adult) (pediatric); Z88.6 Allergy status to analgesic agent; Z86.73 Personal history of transient ischemic attack (TIA), and cerebral infarction without residual deficits; Z86.718 Personal history of other venous thrombosis and embolism; Z79.899 Other long term (current) drug therapy; Z79.84 Long term (current) use of oral hypoglycemic drugs; Z79.01 Long term (current) use of anticoagulants; Z74.01 Bed confinement status
CPT/HCPCS: 36415; 36573; 36600; 71045; 76700; 78227; 78580; 80048; 80053; 80061; 80076; 82375; 82805; 82962; 83036; 83735; 84100; 84145; 84439; 84443; 84484; 85025; 85379; 86705; 86709; 87340; 93005; 93306; 93970; 94640; 94660; 97110; 97162; 99291; A6261; A9537; C1725; C1769; C1892; C9113; J0282; J0360; J0610; J1160; J1815; J1940; J2405; J2920; J2930; J3490; J7060; J7608; J7626

== ENCOUNTER 2024-02-22 22:43 | Inpatient (IN) | payer MEDICARE, MEDICAID ==
[~2024-02-22] VITALS: Ht 172.7 cm; Wt 203.2 kg
[~2024-02-22 22:43] MED LIST changes: -AMI2 PO; -FAMO20TA8 PO; -FURO40TA5 PO; +ISOS10TA2 PO; -LEVO100T9 PO; +LEVO150T8 PO; -LISI10TA26 PO; -METF-416 PO; -P20 MT; +PREG200C29 PO; +SENN-371 PO; -SPIR25TA PO
[2024-02-22 23:38] LABS: BASOPHILS % 0.5 % (0.0-2.0); DIFFERENTIAL COMMENT 0; EOSINOPHILS % 0.4 % (0.0-5.0); HEMATOCRIT. 45.2 % (36.0-48.0); LYMPHOCYTES % 17.1 % (20.0-50.0); MEAN CORPUSCULAR HEMOGLOBIN 27.9 pg (28.0-32.0); MEAN CORPUSCULAR HGB CONC 30.9 g/dL (31.0-37.0); MEAN CORPUSCULAR VOLUME 90.4 fL (81.0-99.0); MEAN PLATELET VOLUME 6.8 fl (7.4-10.4); MONOCYTES % 10.6 % (2.0-8.0); NEUTROPHILS % 71.4 % (40.0-76.0); PLATELET 206 x1000/uL (130-400); RED CELL DISTRIBUTION WIDTH 16.2 % (11.6-14.6); WHITE BLOOD COUNT 9.5 x1000/uL (4.5-11.0)
[2024-02-22 23:42] LABS: CHLORIDE 98 mEq/L (98-107); POTASSIUM 4.5 mEq/L (3.5-5.1); SODIUM 139 mEq/L (136-145)
[2024-02-22 23:44] LABS: CALCIUM 9.2 mg/dL (8.7-10.4)
[2024-02-22 23:46] LABS: INR 1.2
[2024-02-22 23:48] LABS: GLUCOSE 134 mg/dL (70-105)
[2024-02-22 23:49] LABS: UREA NITROGEN BLOOD 27 mg/dL (9-23)
[2024-02-22 23:50] LABS: ALANINE AMINOTRANSFERASE 40 IU/L (10-49); ALBUMIN 3.9 g/dL (3.2-4.8); ASPARTATE AMINOTRANSFERASE 30 IU/L (<34); TROPONIN I HIGH SENSITIVITY 21 ng/L (3.0-34)
[2024-02-22 23:51] LABS: BILIRUBIN TOTAL 0.8 mg/dL (0.1-1.0); PROTEIN TOTAL 6.6 g/dL (6.0-8.3)
[2024-02-22 23:55] LABS: CARBON DIOXIDE > 40 mEq/L (21-32)
[2024-02-23] VITALS (15 sets, daily range): BP systolic 123–142; BP diastolic 76–100; PULSE 83–104; RESP 13–21; TEMP 96.3–97.2; O2SAT 93
[2024-02-23 00:28] LABS: BG BASE EXCESS 10.4 mmol/L (-2.0-2.0); BG CARBOXYHEMOGLOBIN 1.2 % (0.5-1.5); BG DEOXYHEMOGLOBIN 3.9 % (0.0-5.0); BG FRACTION INSPIRED OXYGEN 36; BG HCO3 ACT 40.9 mmol/L (22.0-26.0); BG METHEMOGLOBIN 0.3 % (0.0-1.5); BG OXYHEMOGLOBIN 94.6 % (94.0-97.0); BG PCO2 84.2 mmHg (35.0-45.0); BG PH 7.304 (7.350-7.450); BG SAMPLE SITE LEFT RADIAL; BG TOTAL HEMOGLOBIN 15.2 g/dL (12.0-18.0); BG VENT MODE NASAL CANNULA
[2024-02-23] MEDS: MAGNESIUM 2 G PREMIX 50 ML IV NR (01:56)
[2024-02-23] MEDS: METHYLPREDNISOLONE SOD SUCC 125MG/2ML (ACT-O-VIAL) IV NR (01:56)
[2024-02-23] MEDS: ALBUTEROL (0.083%) 2.5MG/3ML NEB HHN SCH (02:11)
[2024-02-23] MEDS: IPRATROPIUM BROMIDE (0.02%) 0.5MG/2.5ML NEB HHN NR (02:11)
[2024-02-23] MEDS ORDERED: ACETAMINOPHEN 325MG TABLET PO PRN (10:00)
[2024-02-23] MEDS ORDERED: CLONIDINE 0.1MG TABLET PO PRN (10:00)
[2024-02-23] MEDS ORDERED: GUAIFENESIN 200MG/10ML SUGAR FREE UDC PO PRN (10:00)
[2024-02-23] MEDS: LEVOTHYROXINE SODIUM 150MCG TABLET PO SCH (10:34)
[2024-02-23] MEDS: ISOSORBIDE DINITRATE 10MG TABLET PO SCH (10:34)
[2024-02-23] MEDS: FUROSEMIDE 40MG/4ML VIAL IVP SCH (10:35)
[2024-02-23] MEDS: AMLODIPINE 10MG TABLET PO SCH (10:35)
[2024-02-23] MEDS: IPRATROPIUM/ALBUTEROL 0.5-3(2.5)MG/3ML NEB HHN SCH (12:15)
[2024-02-23 12:21] LABS: PHOSPHORUS 4.8 mg/dL (2.5-4.9)
[2024-02-23 12:24] LABS: T4 FREE 0.96 ng/dL (0.89-1.76); THYROID STIMULATING HORMONE 7.49 uIU/mL (0.55-4.78)
[2024-02-23] MEDS ORDERED: IPRATROPIUM/ALBUTEROL 0.5-3(2.5)MG/3ML NEB HHN PRN (15:00)
[2024-02-23 16:49] LABS: BG BASE EXCESS 19.3 mmol/L (-2.0-2.0); BG CARBOXYHEMOGLOBIN 1.3 % (0.5-1.5); BG DEOXYHEMOGLOBIN 6.5 % (0.0-5.0); BG FRACTION INSPIRED OXYGEN 28; BG HCO3 ACT 47.1 mmol/L (22.0-26.0); BG METHEMOGLOBIN 0.3 % (0.0-1.5); BG OXYGEN SATURATION 93.4 % (92.0-98.5); BG OXYHEMOGLOBIN 91.9 % (94.0-97.0); BG PCO2 64.9 mmHg (35.0-45.0); BG PH 7.479 (7.350-7.450); BG PO2 63.8 mmHg (75.0-100.0); BG SAMPLE SITE LEFT RADIAL; BG TOTAL HEMOGLOBIN 15.6 g/dL (12.0-18.0); BG VENT MODE NASAL CANNULA
[2024-02-23] MEDS: METHYLPREDNISOLONE SOD SUCC 40MG/ML (ACT-O-VIAL) IV SCH (17:03)
[2024-02-23] MEDS: RIVAROXABAN 20 MG TABLET PO SCH (17:04)
[2024-02-23] MEDS ORDERED: AZITHROMYCIN 500MG/250ML 250 ML IV SCH (18:00)
[2024-02-23] MEDS: BUDESONIDE 0.5MG/2ML NEB HHN SCH (20:09)
[2024-02-23] MEDS: FAMOTIDINE 20MG TABLET PO SCH (21:12)
[2024-02-23] MEDS: METOPROLOL TARTRATE 50MG TABLET PO SCH (21:13)
[2024-02-24] VITALS (18 sets, daily range): BP systolic 128–162; BP diastolic 79–127; PULSE 73–115; RESP 14–27; TEMP 97.5–98; O2SAT 91–96
[2024-02-24] MEDS: ACETAMINOPHEN 325MG TABLET PO PRN (02:04)
[2024-02-24] MEDS: KETOROLAC 15MG/ML VIAL IV PRN (06:06)
[2024-02-24] MEDS: PREGABALIN 50 MG CAPSULE PO SCH (06:51)
[2024-02-24 07:47] LABS: CHLORIDE 91 mEq/L (98-107); POTASSIUM 4.8 mEq/L (3.5-5.1); SODIUM 139 mEq/L (136-145)
[2024-02-24 07:48] LABS: CALCIUM 9.5 mg/dL (8.7-10.4)
[2024-02-24 07:50] LABS: TROPONIN I HIGH SENSITIVITY 8 ng/L (3.0-34)
[2024-02-24 07:53] LABS: GLUCOSE 261 mg/dL (70-105); UREA NITROGEN BLOOD 26 mg/dL (9-23)
[2024-02-24 08:29] LABS: CARBON DIOXIDE > 40 mEq/L (21-32)
[2024-02-24 08:58] LABS: HEMATOCRIT. 43.4 % (36.0-48.0); HEMOGLOBIN. 13.7 g/dL (12.0-16.0); MEAN CORPUSCULAR HEMOGLOBIN 27.8 pg (28.0-32.0); MEAN CORPUSCULAR HGB CONC 31.6 g/dL (31.0-37.0); MEAN CORPUSCULAR VOLUME 87.8 fL (81.0-99.0); MEAN PLATELET VOLUME 7.6 fl (7.4-10.4); PLATELET 212 x1000/uL (130-400); RED BLOOD CELL COUNT 4.94 mill/uL (4.2-5.4); RED CELL DISTRIBUTION WIDTH 15.8 % (11.6-14.6)
[2024-02-24 08:59] LABS: DIFFERENTIAL COMMENT 1
[2024-02-24] MEDS ORDERED: DEXTROSE 50% WATER 50ML SYRINGE IV PRN (10:45)
[2024-02-24] MEDS ORDERED: LIDOCAINE HCL 1% 10 MG/ML 10ML VIAL ONE (11:03)
[2024-02-24] MEDS: BLOOD SUGAR DIAGNOSTIC STRIP TEST SCH (12:44)
[2024-02-24] MEDS: INSULIN LISPRO 100 UNITS/ML SUBCUT SCH (12:55)
[2024-02-24 17:08] LABS: PLATELET ESTIMATE NORMAL
[2024-02-25] VITALS (14 sets, daily range): BP systolic 117–150; BP diastolic 69–104; PULSE 73–130; RESP 11–20; TEMP 97.5–98; O2SAT 92–98
[2024-02-25 07:45] LABS: HEMATOCRIT 42.7 % (36.0-48.0); HEMOGLOBIN 13.6 g/dL (12.0-16.0); MEAN CORPUSCULAR HEMOGLOBIN 27.7 pg (28.0-32.0); MEAN CORPUSCULAR HGB CONC 31.8 g/dL (31.0-37.0); MEAN CORPUSCULAR VOLUME 87.1 fL (81.0-99.0); PLATELET 193 x1000/uL (130-400); RED CELL DISTRIBUTION WIDTH 16.2 % (11.6-14.6); WHITE BLOOD COUNT 15.1 x1000/uL (4.5-11.0)
[2024-02-25 07:49] LABS: CHLORIDE 92 mEq/L (98-107); POTASSIUM 4.7 mEq/L (3.5-5.1); SODIUM 141 mEq/L (136-145)
[2024-02-25 07:50] LABS: CALCIUM 9.5 mg/dL (8.7-10.4)
[2024-02-25 07:55] LABS: GLUCOSE 236 mg/dL (70-105); UREA NITROGEN BLOOD 25 mg/dL (9-23)
[2024-02-25 08:13] LABS: CARBON DIOXIDE > 40 mEq/L (21-32)
[2024-02-25] MEDS: INSULIN LISPRO 100 UNITS/ML SUBCUT SCH (13:46)
[2024-02-25] MEDS: METHYLPREDNISOLONE SOD SUCC 40MG/ML (ACT-O-VIAL) IV SCH (21:32)
[2024-02-26] VITALS (14 sets, daily range): BP systolic 105–167; BP diastolic 66–125; PULSE 72–101; RESP 13–23; TEMP 97.3–97.5; O2SAT 97
[2024-02-26 08:45] LABS: HEMATOCRIT 44.8 % (36.0-48.0); MEAN CORPUSCULAR HEMOGLOBIN 27.5 pg (28.0-32.0); MEAN CORPUSCULAR HGB CONC 31.2 g/dL (31.0-37.0); PLATELET 195 x1000/uL (130-400); RED CELL DISTRIBUTION WIDTH 16.4 % (11.6-14.6); WHITE BLOOD COUNT 9.1 x1000/uL (4.5-11.0)
[2024-02-26 09:01] LABS: CHLORIDE 92 mEq/L (98-107); POTASSIUM 4.7 mEq/L (3.5-5.1); SODIUM 142 mEq/L (136-145)
[2024-02-26 09:02] LABS: CALCIUM 9.6 mg/dL (8.7-10.4)
[2024-02-26 09:07] LABS: GLUCOSE 207 mg/dL (70-105); UREA NITROGEN BLOOD 30 mg/dL (9-23)
[2024-02-26 09:31] LABS: CARBON DIOXIDE > 40 mEq/L (21-32)
[2024-02-26] MEDS: DOCUSATE SODIUM 100MG CAPSULE PO PRN (10:27)
[2024-02-26 10:54] LABS: BG BASE EXCESS 19.4 mmol/L (-2.0-2.0); BG CARBOXYHEMOGLOBIN 0.8 % (0.5-1.5); BG DEOXYHEMOGLOBIN 8.4 % (0.0-5.0); BG FRACTION INSPIRED OXYGEN 36; BG METHEMOGLOBIN 0.3 % (0.0-1.5); BG OXYGEN SATURATION 91.5 % (92.0-98.5); BG OXYHEMOGLOBIN 90.5 % (94.0-97.0); BG PCO2 80.2 mmHg (35.0-45.0); BG PH 7.404 (7.350-7.450); BG PO2 62.6 mmHg (75.0-100.0); BG SAMPLE SITE RIGHT RADIAL; BG TOTAL HEMOGLOBIN 14.5 g/dL (12.0-18.0); BG VENT MODE NASAL CANNULA
[2024-02-26] MEDS: INSULIN GLARGINE 100 UNITS/ML SUBCUT SCH (21:42)
[2024-02-27] VITALS (18 sets, daily range): BP systolic 131–146; BP diastolic 74–129; PULSE 73–126; RESP 14–26; TEMP 96.7–98.2; O2SAT 94–98
[2024-02-27] MEDS ORDERED: ATOR20TA65 PO (08:57)
[2024-02-27] MEDS ORDERED: FURO40TA5 PO (08:57)
[2024-02-27 10:09] LABS: HEMATOCRIT 45.2 % (36.0-48.0); HEMOGLOBIN 14.8 g/dL (12.0-16.0); MEAN CORPUSCULAR HEMOGLOBIN 28.7 pg (28.0-32.0); MEAN CORPUSCULAR HGB CONC 32.7 g/dL (31.0-37.0); MEAN CORPUSCULAR VOLUME 87.7 fL (81.0-99.0); PLATELET 191 x1000/uL (130-400); RED BLOOD CELL COUNT 5.16 mill/uL (4.2-5.4); RED CELL DISTRIBUTION WIDTH 15.7 % (11.6-14.6); WHITE BLOOD COUNT 7.6 x1000/uL (4.5-11.0)
[2024-02-27 10:29] LABS: CHLORIDE 91 mEq/L (98-107); POTASSIUM 4.4 mEq/L (3.5-5.1); SODIUM 138 mEq/L (136-145)
[2024-02-27 10:30] LABS: CALCIUM 9.4 mg/dL (8.7-10.4)
[2024-02-27 10:35] LABS: GLUCOSE 261 mg/dL (70-105); UREA NITROGEN BLOOD 32 mg/dL (9-23)
[2024-02-27 12:29] LABS: CARBON DIOXIDE > 40 mEq/L (21-32)
[2024-02-27] MEDS ORDERED: LEVO150T8 PO (15:54)
[2024-02-27] MEDS ORDERED: PREG200C29 PO (15:54)
[2024-02-27] MEDS ORDERED: RIVA20TA PO (15:54)
[2024-02-27] MEDS ORDERED: ISOS10TA2 PO (15:54)
[2024-02-27] MEDS ORDERED: METO-539 PO (15:54)
[2024-02-27] MEDS ORDERED: AMLO10TA80 PO (15:54)
[2024-02-27] MEDS ORDERED: P20 PO (15:54)
[2024-02-28] VITALS (10 sets, daily range): BP systolic 116–148; BP diastolic 77–121; PULSE 76–117; RESP 14–27; TEMP 97.4–98.4; O2SAT 94–96
[2024-02-28] MEDS: MAGNESIUM/ALUMINUM HYDROXIDE/SIMETHICONE 30ML UDC PO PRN (09:11)
== END 2024-02-28 15:22 | disposition home health service (06) | DRG 133 ==
LOC: ER 22:43 → 5EST 02-23 03:05
PROVIDERS: ADMIT Internal Medicine; ATTEND Internal Medicine
PROC: 5A09357 Assistance with Respiratory Ventilation, Less than 24 Consecutive Hours, Continuous Positive Airway Pressure (ICD-10-PCS; principal; 2024-02-23)
PROC: 05H633Z Insertion of Infusion Device into Left Subclavian Vein, Percutaneous Approach (ICD-10-PCS; 2024-02-24)
PROC: B547ZZA Ultrasonography of Left Subclavian Vein, Guidance (ICD-10-PCS; 2024-02-24)
DX: J96.21 Acute and chronic respiratory failure with hypoxia (principal); N17.0 Acute kidney failure with tubular necrosis; I50.23 Acute on chronic systolic (congestive) heart failure; K27.6 Chronic or unspecified peptic ulcer, site unspecified, with both hemorrhage and perforation; I27.20 Pulmonary hypertension, unspecified; E83.39 Other disorders of phosphorus metabolism; I48.19 Other persistent atrial fibrillation; J44.1 Chronic obstructive pulmonary disease with (acute) exacerbation; I11.0 Hypertensive heart disease with heart failure; K29.70 Gastritis, unspecified, without bleeding; Z68.45 Body mass index [BMI] 70 or greater, adult; E03.9 Hypothyroidism, unspecified; E66.01 Morbid (severe) obesity due to excess calories; I87.8 Other specified disorders of veins; J96.22 Acute and chronic respiratory failure with hypercapnia; K80.20 Calculus of gallbladder without cholecystitis without obstruction; E78.00 Pure hypercholesterolemia, unspecified; G47.33 Obstructive sleep apnea (adult) (pediatric); E11.65 Type 2 diabetes mellitus with hyperglycemia; E87.5 Hyperkalemia; R74.01 Elevation of levels of liver transaminase levels; K76.0 Fatty (change of) liver, not elsewhere classified; T38.0X5A Adverse effect of glucocorticoids and synthetic analogues, initial encounter; Z99.81 Dependence on supplemental oxygen; Z79.01 Long term (current) use of anticoagulants; Z79.4 Long term (current) use of insulin; Z86.718 Personal history of other venous thrombosis and embolism; Z86.73 Personal history of transient ischemic attack (TIA), and cerebral infarction without residual deficits; Z88.6 Allergy status to analgesic agent; Z79.899 Other long term (current) drug therapy; Z88.8 Allergy status to other drugs, medicaments and biological substances; Z91.199 Patient's noncompliance with other medical treatment and regimen due to unspecified reason; Y92.89 Other specified places as the place of occurrence of the external cause
CPT/HCPCS: 36415; 36573; 36600; 71045; 80048; 80053; 82375; 82805; 82962; 83735; 83880; 84100; 84439; 84443; 84484; 85025; 85027; 93005; 94640; 94644; 94660; 99291; C1725; J0456; J1815; J1885; J1940; J2920; J2930; J3475; J3490; J7060; J7626

== ENCOUNTER 2024-03-03 19:03 | Inpatient (IN) | payer MEDICARE, MEDICAID ==
[~2024-03-03] VITALS: Ht 165.1 cm; Wt 196.2 kg
[~2024-03-03 19:03] MED LIST changes: +ATOR20TA65 PO; +FURO40TA5 PO; +P20 PO
[2024-03-03] MEDS ORDERED: MORPHINE SULFATE 4 MG/ML INJ (FOR IV/IM USE) IV STA (19:43)
[2024-03-03] MEDS ORDERED: ONDANSETRON HCL 4MG/2ML INJ IV STA (19:43)
[2024-03-03] MEDS ORDERED: NITROGLYCERIN 0.4MG TABLET SL SL PRN (19:45)
[2024-03-03 20:13] LABS: BASOPHILS % 0.3 % (0.0-2.0); EOSINOPHILS % 0.6 % (0.0-5.0); HEMATOCRIT. 40.8 % (36.0-48.0); HEMOGLOBIN. 12.8 g/dL (12.0-16.0); LYMPHOCYTES % 19.9 % (20.0-50.0); MEAN CORPUSCULAR HEMOGLOBIN 27.7 pg (28.0-32.0); MEAN CORPUSCULAR HGB CONC 31.4 g/dL (31.0-37.0); MEAN CORPUSCULAR VOLUME 88.3 fL (81.0-99.0); MEAN PLATELET VOLUME 7.9 fl (7.4-10.4); MONOCYTES % 7.1 % (2.0-8.0); NEUTROPHILS % 72.1 % (40.0-76.0); PLATELET 173 x1000/uL (130-400); RED BLOOD CELL COUNT 4.62 mill/uL (4.2-5.4); RED CELL DISTRIBUTION WIDTH 16.5 % (11.6-14.6); WHITE BLOOD COUNT 9.5 x1000/uL (4.5-11.0)
[2024-03-03 20:25] LABS: CHLORIDE 99 mEq/L (98-107); POTASSIUM 4.1 mEq/L (3.5-5.1); SODIUM 144 mEq/L (136-145)
[2024-03-03 20:28] LABS: INR 1.3; PARTIAL THROMBOPLASTIN TIME 28.5 sec (23.4-31.0)
[2024-03-03 20:30] LABS: CREATININE 0.9 mg/dL (0.6-1.0)
[2024-03-03 20:31] LABS: GLUCOSE 126 mg/dL (70-105); UREA NITROGEN BLOOD 24 mg/dL (9-23)
[2024-03-03 20:32] LABS: ALANINE AMINOTRANSFERASE 31 IU/L (10-49); ALBUMIN 3.4 g/dL (3.2-4.8); ASPARTATE AMINOTRANSFERASE 19 IU/L (<34)
[2024-03-03 20:33] LABS: BILIRUBIN DIRECT 0.3 mg/dL (<=3.0); BILIRUBIN TOTAL 0.8 mg/dL (0.1-1.0); PROTEIN TOTAL 5.6 g/dL (6.0-8.3); TROPONIN I HIGH SENSITIVITY 13 ng/L (3.0-34)
[2024-03-03 20:34] LABS: CARBON DIOXIDE > 40 mEq/L (21-32)
[2024-03-03] MEDS: MORPHINE SULFATE 4 MG/ML INJ (FOR IV/IM USE) IV NR (21:56)
[2024-03-03] MEDS: ONDANSETRON HCL 4MG/2ML INJ IV NR (21:57)
[2024-03-03] MEDS ORDERED: CARV6.2548 PO (23:01)
[2024-03-03 23:46] VITALS: BP 104/59; PULSE 72; RESP 19; TEMP 98.1
[2024-03-04] VITALS (15 sets, daily range): BP systolic 96–135; BP diastolic 51–101; PULSE 72–95; RESP 14–20; TEMP 97.2–98.4; O2SAT 95
[2024-03-04 03:33] LABS: BASOPHILS % 0.4 % (0.0-2.0); EOSINOPHILS % 0.9 % (0.0-5.0); HEMATOCRIT. 40.7 % (36.0-48.0); HEMOGLOBIN. 12.7 g/dL (12.0-16.0); LYMPHOCYTES % 27.7 % (20.0-50.0); MEAN CORPUSCULAR HEMOGLOBIN 27.7 pg (28.0-32.0); MEAN CORPUSCULAR HGB CONC 31.3 g/dL (31.0-37.0); MEAN CORPUSCULAR VOLUME 88.6 fL (81.0-99.0); MEAN PLATELET VOLUME 7.8 fl (7.4-10.4); MONOCYTES % 6.8 % (2.0-8.0); NEUTROPHILS % 64.2 % (40.0-76.0); PLATELET 162 x1000/uL (130-400); RED BLOOD CELL COUNT 4.59 mill/uL (4.2-5.4); RED CELL DISTRIBUTION WIDTH 16.4 % (11.6-14.6); WHITE BLOOD COUNT 6.9 x1000/uL (4.5-11.0)
[2024-03-04 03:40] LABS: CHLORIDE 97 mEq/L (98-107); POTASSIUM 3.7 mEq/L (3.5-5.1); SODIUM 144 mEq/L (136-145)
[2024-03-04 03:46] LABS: CREATININE 0.9 mg/dL (0.6-1.0); GLUCOSE 127 mg/dL (70-105); TRIGLYCERIDE 81 mg/dL (0-150); UREA NITROGEN BLOOD 24 mg/dL (9-23)
[2024-03-04 03:47] LABS: ALANINE AMINOTRANSFERASE 31 IU/L (10-49); ASPARTATE AMINOTRANSFERASE 19 IU/L (<34); LDL CHOLESTEROL 78 mg/dL (5-100)
[2024-03-04 03:48] LABS: ALBUMIN 3.5 g/dL (3.2-4.8); CHOLESTEROL 138 mg/dL (<200); HDL CHOLESTEROL 45 mg/dL (>65); PROTEIN TOTAL 5.9 g/dL (6.0-8.3)
[2024-03-04 03:50] LABS: THYROID STIMULATING HORMONE 11.81 uIU/mL (0.55-4.78)
[2024-03-04 04:04] LABS: CARBON DIOXIDE > 40 mEq/L (21-32)
[2024-03-04 04:49] LABS: HEPATITIS B SURFACE ANTIGEN NEGATIVE (Negative)
[2024-03-04 05:10] LABS: HEPATITIS C AB NON REACTIVE (Neg) (Negative)
[2024-03-04] MEDS ORDERED: LIDOCAINE HCL 1% 10 MG/ML 10ML VIAL ONE (08:34)
[2024-03-04] MEDS: ISOSORBIDE DINITRATE 10MG TABLET PO SCH (08:34)
[2024-03-04] MEDS: LEVOTHYROXINE SODIUM 150MCG TABLET PO SCH (08:37)
[2024-03-04] MEDS: METOPROLOL TARTRATE 25MG TABLET PO SCH (08:38)
[2024-03-04] MEDS ORDERED: NALOXONE HCL 0.4MG/ML VIAL IV PRN (10:00)
[2024-03-04 10:16] LABS: TROPONIN I HIGH SENSITIVITY 11 ng/L (3.0-34)
[2024-03-04] MEDS: HYDROCODONE/ACETAMINOPHEN 5/325MG TABLET PO PRN (10:39)
[2024-03-04] MEDS ORDERED: FUROSEMIDE 40MG/4ML VIAL IVP SCH (12:30)
[2024-03-04] MEDS: METOLAZONE 2.5MG TABLET PO NR (12:45)
[2024-03-04] MEDS: FUROSEMIDE 100MG/10ML VIAL IVP SCH (13:38)
[2024-03-04] MEDS: IPRATROPIUM/ALBUTEROL 0.5-3(2.5)MG/3ML NEB HHN SCH (15:00)
[2024-03-04] MEDS: RIVAROXABAN 20 MG TABLET PO SCH (17:00)
[2024-03-04] MEDS: ATORVASTATIN CALCIUM 40MG TABLET PO SCH (20:28)
[2024-03-05] VITALS (16 sets, daily range): BP systolic 94–139; BP diastolic 52–118; PULSE 68–140; RESP 16–39; TEMP 97.2–98.6; O2SAT 95–98
[2024-03-05 07:37] LABS: CHLORIDE 90 mEq/L (98-107); POTASSIUM 3.3 mEq/L (3.5-5.1); SODIUM 143 mEq/L (136-145)
[2024-03-05 07:38] LABS: CALCIUM 10.6 mg/dL (8.7-10.4)
[2024-03-05 07:43] LABS: CREATININE 0.9 mg/dL (0.6-1.0); GLUCOSE 118 mg/dL (70-105); UREA NITROGEN BLOOD 19 mg/dL (9-23)
[2024-03-05 08:04] LABS: CARBON DIOXIDE > 40 mEq/L (21-32)
[2024-03-05] MEDS ORDERED: DEXTROSE 50% WATER 50ML SYRINGE IV PRN (15:15)
[2024-03-05] MEDS ORDERED: AMI2 PO (15:23)
[2024-03-05] MEDS ORDERED: DULO30CA52 PO (15:23)
[2024-03-05] MEDS ORDERED: FAMO20TA8 PO (15:23)
[2024-03-05] MEDS: ONDANSETRON HCL 4MG/2ML INJ IV PRN (16:32)
[2024-03-05] MEDS: BLOOD SUGAR DIAGNOSTIC STRIP TEST SCH (17:56)
[2024-03-05] MEDS: INSULIN LISPRO 100 UNITS/ML SUBCUT SCH (17:56)
[2024-03-05] MEDS: BUDESONIDE 0.5MG/2ML NEB HHN SCH (20:05)
[2024-03-06] VITALS (15 sets, daily range): BP systolic 106–143; BP diastolic 47–87; PULSE 80–134; RESP 12–24; TEMP 97–98.2; O2SAT 96–98
[2024-03-06] MEDS: ACETYLCYSTEINE 200MG/ML 20% VIAL 4ML INH SCH (02:26)
[2024-03-06] MEDS ORDERED: FURO80TA87 MT (11:33)
[2024-03-06] MEDS ORDERED: POTA-205 MT (11:33)
[2024-03-06] MEDS ORDERED: METO25TA6 PO (11:33)
[2024-03-06] MEDS ORDERED: METO2.5T2 MT (11:33)
[2024-03-06] MEDS ORDERED: SEMA0.258 SUBCUT (11:36)
[2024-03-06] MEDS: METOLAZONE 2.5MG TABLET PO NR (12:54)
[2024-03-06] MEDS: POTASSIUM CHLORIDE 20MEQ TABLET SR PO NR (12:55)
[2024-03-07] VITALS (15 sets, daily range): BP systolic 95–141; BP diastolic 57–88; PULSE 79–126; RESP 16–24; TEMP 97.4–98.9; O2SAT 96–98
[2024-03-07] MEDS: METOPROLOL TARTRATE 50MG TABLET PO SCH (21:00)
[2024-03-07] MEDS: AMIODARONE HCL 200 MG TABLET PO SCH (21:37)
[2024-03-08] VITALS (9 sets, daily range): BP systolic 98–128; BP diastolic 65–97; PULSE 81–145; RESP 16–23; TEMP 96.5–98.5
== END 2024-03-08 14:45 | disposition home or self-care (01) | DRG 140 ==
LOC: ER 19:03 → 5WST 21:10 → EDBEDREQTM 21:22 → EDBEDREQ 21:22 → 7EST 23:14 → 5EST 03-04 02:27
PROVIDERS: ADMIT Internal Medicine; ATTEND Internal Medicine
PROC: 5A09357 Assistance with Respiratory Ventilation, Less than 24 Consecutive Hours, Continuous Positive Airway Pressure (ICD-10-PCS; principal; 2024-03-04)
PROC: 02HV33Z Insertion of Infusion Device into Superior Vena Cava, Percutaneous Approach (ICD-10-PCS; 2024-03-04)
PROC: B548ZZA Ultrasonography of Superior Vena Cava, Guidance (ICD-10-PCS; 2024-03-04)
DX: J44.1 Chronic obstructive pulmonary disease with (acute) exacerbation (principal); J96.21 Acute and chronic respiratory failure with hypoxia; I50.23 Acute on chronic systolic (congestive) heart failure; I11.0 Hypertensive heart disease with heart failure; I48.91 Unspecified atrial fibrillation; E66.01 Morbid (severe) obesity due to excess calories; Z68.45 Body mass index [BMI] 70 or greater, adult; G47.33 Obstructive sleep apnea (adult) (pediatric); I87.8 Other specified disorders of veins; E03.9 Hypothyroidism, unspecified; E11.9 Type 2 diabetes mellitus without complications; R26.9 Unspecified abnormalities of gait and mobility; E78.00 Pure hypercholesterolemia, unspecified; S90.425A Blister (nonthermal), left lesser toe(s), initial encounter; X58.XXXA Exposure to other specified factors, initial encounter; Y93.89 Activity, other specified; Y92.89 Other specified places as the place of occurrence of the external cause; Y99.8 Other external cause status; Z79.01 Long term (current) use of anticoagulants; Z86.718 Personal history of other venous thrombosis and embolism; Z86.73 Personal history of transient ischemic attack (TIA), and cerebral infarction without residual deficits; Z88.6 Allergy status to analgesic agent; Z99.81 Dependence on supplemental oxygen; Z91.018 Allergy to other foods
CPT/HCPCS: 36415; 36573; 71045; 80048; 80053; 80061; 80076; 82803; 82962; 83036; 83880; 84443; 84484; 85025; 86705; 87340; 93005; 94640; 99285; A6261; C1725; J1815; J1940; J2270; J2310; J2405; J3490; J7608; J7626

== ENCOUNTER 2024-05-22 23:01 | Inpatient (IN) | payer MEDICARE, MEDICAID ==
[~2024-05-22] VITALS: Ht 167.6 cm; Wt 199.2 kg
[~2024-05-22 23:01] MED LIST changes: +ALBU6.7H15 INH; +AMIO100T4 PO; +AZEL137S7 BOTHNSTRLS; +CARV6.2548 PO; +DOCU-150 PO; +DULO30CA52 PO; +FAMO20TA8 PO; +GABA300C MT; +HYDR-4001 PO; -METO-539 PO; +NITR0.4T SL; +ONDA-241 SL; +POTA-205 MT; -PREG200C29 PO; +SEMA0.258 SUBCUT
[2024-05-23 09:59] LABS: BASOPHILS % 0.7 % (0.0-2.0); DIFFERENTIAL COMMENT 0; EOSINOPHILS % 1.3 % (0.0-5.0); HEMATOCRIT. 42.2 % (36.0-48.0); HEMOGLOBIN. 12.6 g/dL (12.0-16.0); LYMPHOCYTES % 33.7 % (20.0-50.0); MEAN CORPUSCULAR HEMOGLOBIN 25.4 pg (28.0-32.0); MEAN CORPUSCULAR HGB CONC 29.8 g/dL (31.0-37.0); MEAN CORPUSCULAR VOLUME 85.2 fL (81.0-99.0); MEAN PLATELET VOLUME 8.1 fl (7.4-10.4); MONOCYTES % 12.9 % (2.0-8.0); NEUTROPHILS % 51.4 % (40.0-76.0); PLATELET 185 x1000/uL (130-400); RED BLOOD CELL COUNT 4.96 mill/uL (4.2-5.4); WHITE BLOOD COUNT 5.1 x1000/uL (4.5-11.0)
[2024-05-23] MEDS ORDERED: ACETAMINOPHEN 325MG TABLET PO PRN (10:00)
[2024-05-23] MEDS ORDERED: IPRATROPIUM/ALBUTEROL 0.5-3(2.5)MG/3ML NEB HHN PRN (10:00)
[2024-05-23] MEDS ORDERED: CLONIDINE 0.1MG TABLET PO PRN (10:00)
[2024-05-23] MEDS ORDERED: MAGNESIUM/ALUMINUM HYDROXIDE/SIMETHICONE 30ML UDC PO PRN (10:00)
[2024-05-23] MEDS ORDERED: GUAIFENESIN 200MG/10ML SUGAR FREE UDC PO PRN (10:00)
[2024-05-23 10:08] LABS: CHLORIDE 104 mEq/L (98-107); SODIUM 141 mEq/L (136-145)
[2024-05-23 10:09] LABS: CARBON DIOXIDE 36 mEq/L (21-32)
[2024-05-23] MEDS: FUROSEMIDE 40MG TABLET PO NR (10:12)
[2024-05-23 10:14] LABS: GLUCOSE 108 mg/dL (70-105); UREA NITROGEN BLOOD 17 mg/dL (9-23)
[2024-05-23 10:17] LABS: TROPONIN I HIGH SENSITIVITY 10 ng/L (3.0-34)
[2024-05-23] MEDS ORDERED: NITROGLYCERIN 0.4MG TABLET SL SL PRN (15:00)
[2024-05-23] MEDS ORDERED: SENN-371 PO (15:31)
[2024-05-23] MEDS ORDERED: MAG-135 PO (15:31)
[2024-05-23 20:00] VITALS: BP_SYST 106; BP_DIAS 76; BP_DIAS 85; PULSE 68; PULSE 82; RESP 18; RESP 20; TEMP 36.3918; TEMP 36.418; TEMP 37.00296; O2SAT 89; O2SAT 97
[2024-05-23] MEDS: POTASSIUM CHLORIDE 20MEQ TABLET SR PO SCH (20:46)
[2024-05-23] MEDS: ATORVASTATIN CALCIUM 20MG TABLET PO SCH (20:47)
[2024-05-23] MEDS: CARVEDILOL 6.25 MG TABLET PO SCH (20:48)
[2024-05-24] VITALS (7 sets, daily range): BP systolic 100–126; BP diastolic 53–81; PULSE 63–102; RESP 18–20; TEMP 35.94732–37.05852; O2SAT 89–100
[2024-05-24] MEDS: LEVOTHYROXINE SODIUM 150MCG TABLET PO SCH (06:46)
[2024-05-24] MEDS ORDERED: LIDOCAINE HCL 1% 10 MG/ML 10ML VIAL ONE (07:50)
[2024-05-24] MEDS: DULOXETINE HCL 30MG DR CAPSULE PO SCH (08:45)
[2024-05-24] MEDS: FUROSEMIDE 40MG TABLET PO SCH (08:45)
[2024-05-24] MEDS: AMLODIPINE 10MG TABLET PO SCH (08:46)
[2024-05-24] MEDS: AMIODARONE 200MG TABLET PO SCH (08:46)
[2024-05-24 10:27] LABS: BASOPHILS % 0.5 % (0.0-2.0); DIFFERENTIAL COMMENT 0; EOSINOPHILS % 1.1 % (0.0-5.0); HEMOGLOBIN. 12.8 g/dL (12.0-16.0); LYMPHOCYTES % 17.2 % (20.0-50.0); MEAN CORPUSCULAR HEMOGLOBIN 25.3 pg (28.0-32.0); MEAN CORPUSCULAR HGB CONC 29.1 g/dL (31.0-37.0); MEAN CORPUSCULAR VOLUME 86.8 fL (81.0-99.0); MEAN PLATELET VOLUME 8.4 fl (7.4-10.4); MONOCYTES % 10.1 % (2.0-8.0); NEUTROPHILS % 71.1 % (40.0-76.0); PLATELET 187 x1000/uL (130-400); RED BLOOD CELL COUNT 5.07 mill/uL (4.2-5.4); WHITE BLOOD COUNT 5.4 x1000/uL (4.5-11.0)
[2024-05-24 10:57] LABS: TRIGLYCERIDE 96 mg/dL (0-150)
[2024-05-24 10:58] LABS: LDL CHOLESTEROL 74 mg/dL (5-100)
[2024-05-24 10:59] LABS: CHOLESTEROL 115 mg/dL (<200); CREATINE KINASE 49 IU/L (34-145); HDL CHOLESTEROL 32 mg/dL (>65)
[2024-05-24] MEDS: ACETAMINOPHEN 325MG TABLET PO PRN (11:22)
[2024-05-24] MEDS: ISOSORBIDE DINITRATE 10MG TABLET PO SCH (11:23)
[2024-05-24 12:25] LABS: CHLORIDE 101 mEq/L (98-107); POTASSIUM 4.1 mEq/L (3.5-5.1); SODIUM 142 mEq/L (136-145)
[2024-05-24 12:31] LABS: CREATININE 0.9 mg/dL (0.6-1.0); GLUCOSE 134 mg/dL (70-105); TRIGLYCERIDE 91 mg/dL (0-150); UREA NITROGEN BLOOD 16 mg/dL (9-23)
[2024-05-24 12:32] LABS: LDL CHOLESTEROL 62 mg/dL (5-100); TROPONIN I HIGH SENSITIVITY 10 ng/L (3.0-34)
[2024-05-24 12:33] LABS: CHOLESTEROL 102 mg/dL (<200); HDL CHOLESTEROL 31 mg/dL (>65)
[2024-05-24 12:36] LABS: THYROID STIMULATING HORMONE 4.36 uIU/mL (0.55-4.78)
[2024-05-24 12:37] LABS: CARBON DIOXIDE > 40 mEq/L (21-32)
[2024-05-24] MEDS ORDERED: DEXTROSE 50% WATER 50ML SYRINGE IV PRN (16:00)
[2024-05-24] MEDS: BLOOD SUGAR DIAGNOSTIC STRIP TEST SCH (17:20)
[2024-05-24] MEDS: INSULIN LISPRO 100 UNITS/ML SUBCUT SCH (17:24)
[2024-05-24] MEDS: RIVAROXABAN 20 MG TABLET PO SCH (18:23)
[2024-05-24] MEDS: CEFTRIAXONE 1GM/50ML 50 ML IV SCH (21:22)
[2024-05-24] MEDS: HYDROCODONE/ACETAMINOPHEN 5/325MG TABLET PO NR (21:22)
[2024-05-24 22:03] LABS: TROPONIN I HIGH SENSITIVITY 10 ng/L (3.0-34)
[2024-05-25] VITALS: BP 131/78; PULSE 65; RESP 20; TEMP 36.22512; O2SAT 95
[2024-05-25 04:00] VITALS: BP 127/72; PULSE 72; RESP 20; TEMP 36.05844; O2SAT 95
[2024-05-25] MEDS: ONDANSETRON HCL 4MG/2ML INJ IV PRN (05:20)
[2024-05-25 07:34] LABS: CHLORIDE 98 mEq/L (98-107); POTASSIUM 3.8 mEq/L (3.5-5.1); SODIUM 140 mEq/L (136-145)
[2024-05-25 07:35] LABS: CALCIUM 9.3 mg/dL (8.7-10.4)
[2024-05-25 07:40] LABS: TROPONIN I HIGH SENSITIVITY 10 ng/L (3.0-34)
[2024-05-25 07:41] LABS: CREATININE 0.9 mg/dL (0.6-1.0); GLUCOSE 129 mg/dL (70-105); UREA NITROGEN BLOOD 12 mg/dL (9-23)
[2024-05-25 08:05] LABS: HEMOGLOBIN 12.2 g/dL (12.0-16.0); MEAN CORPUSCULAR HEMOGLOBIN 25.2 pg (28.0-32.0); MEAN CORPUSCULAR HGB CONC 29.8 g/dL (31.0-37.0); MEAN CORPUSCULAR VOLUME 84.5 fL (81.0-99.0); PLATELET 197 x1000/uL (130-400); RED BLOOD CELL COUNT 4.85 mill/uL (4.2-5.4); RED CELL DISTRIBUTION WIDTH 17.2 % (11.6-14.6); WHITE BLOOD COUNT 5.4 x1000/uL (4.5-11.0)
[2024-05-25 08:28] LABS: CARBON DIOXIDE > 40 mEq/L (21-32)
[2024-05-25] MEDS: FUROSEMIDE 40MG/4ML VIAL IVP SCH (11:45)
[2024-05-25 12:00] VITALS: BP 91/58; PULSE 78; RESP 18; TEMP 36.55848; O2SAT 99
[2024-05-25 16:00] VITALS: BP 104/62; PULSE 72; RESP 18; TEMP 36.44736; O2SAT 99
[2024-05-25] MEDS: DOCUSATE SODIUM 100MG CAPSULE PO PRN (18:35)
[2024-05-25 20:00] VITALS: BP 93/53; PULSE 69; RESP 17; TEMP 36.55848; O2SAT 96
[2024-05-25] MEDS: HYDROCODONE/ACETAMINOPHEN 7.5/325MG TABLET PO NR (23:20)
[2024-05-26] VITALS: BP 128/52; PULSE 77; RESP 19; TEMP 36.9474; O2SAT 100
[2024-05-26 04:00] VITALS: BP 113/73; PULSE 82; RESP 18; TEMP 36.44736; O2SAT 97
[2024-05-26 06:23] LABS: CHLORIDE 97 mEq/L (98-107); POTASSIUM 3.9 mEq/L (3.5-5.1); SODIUM 141 mEq/L (136-145)
[2024-05-26 06:24] LABS: CALCIUM 9.4 mg/dL (8.7-10.4)
[2024-05-26 06:29] LABS: CREATININE 0.9 mg/dL (0.6-1.0); GLUCOSE 97 mg/dL (70-105); UREA NITROGEN BLOOD 11 mg/dL (9-23)
[2024-05-26 06:59] LABS: CARBON DIOXIDE > 40 mEq/L (21-32)
[2024-05-26 08:00] VITALS: BP 116/80; PULSE 80; RESP 19; TEMP 37.05852; O2SAT 95
[2024-05-26 09:22] LABS: HEMOGLOBIN 12.5 g/dL (12.0-16.0); MEAN CORPUSCULAR HEMOGLOBIN 25.7 pg (28.0-32.0); MEAN CORPUSCULAR HGB CONC 30.4 g/dL (31.0-37.0); MEAN CORPUSCULAR VOLUME 84.6 fL (81.0-99.0); PLATELET 132 x1000/uL (130-400); RED BLOOD CELL COUNT 4.85 mill/uL (4.2-5.4); WHITE BLOOD COUNT 4.8 x1000/uL (4.5-11.0)
[2024-05-26 10:23] LABS: BG BASE EXCESS 13.3 mmol/L (-2.0-3.0); BG DEOXYHEMOGLOBIN 7.6 % (0.0-5.0); BG FRACTION INSPIRED OXYGEN 28; BG HCO3 ACT 42.7 mmol/L (21.0-28.0); BG METHEMOGLOBIN 0.3 % (0.5-1.5); BG OXYGEN SATURATION 92.3 % (94.0-98.0); BG OXYHEMOGLOBIN 91.1 % (94.0-98.0); BG PCO2 79.6 mmHg (32.0-45.0); BG PH 7.347 (7.350-7.450); BG PO2 66.2 mmHg (83.0-108.0); BG SAMPLE SITE RIGHT RADIAL; BG TOTAL HEMOGLOBIN 13.5 g/dL (12.0-16.0); BG VENT MODE NASAL CANNULA
[2024-05-26 12:00] VITALS: BP 107/50; PULSE 59; RESP 19; TEMP 35.94732; O2SAT 96
[2024-05-26 16:00] VITALS: BP 102/57; PULSE 77; RESP 19; TEMP 35.72508; O2SAT 97
[2024-05-26 20:00] VITALS: BP 123/57; PULSE 102; RESP 18; TEMP 37.11408; O2SAT 98
[2024-05-27] VITALS: BP 106/78; PULSE 68; RESP 19; TEMP 36.89184; O2SAT 97
[2024-05-27 04:00] VITALS: BP 111/73; PULSE 68; RESP 18; TEMP 36.6696; O2SAT 99
[2024-05-27 08:00] VITALS: BP 117/73; PULSE 61; RESP 18; TEMP 35.5584; O2SAT 100
[2024-05-27] MEDS: LACTULOSE 20G/30ML UDC PO PRN (09:13)
[2024-05-27 12:00] VITALS: BP 120/60; PULSE 65; RESP 19; TEMP 36.114; O2SAT 99
[2024-05-27 16:00] VITALS: BP 122/41; PULSE 74; RESP 18; TEMP 37.11408; O2SAT 99
[2024-05-27 20:00] VITALS: BP 102/55; PULSE 72; RESP 18; TEMP 37.05852; O2SAT 98
[2024-05-28] VITALS: BP 121/78; PULSE 77; RESP 19; TEMP 37.00296; O2SAT 98
[2024-05-28 04:00] VITALS: BP 128/71; PULSE 70; RESP 18; TEMP 36.55848; O2SAT 99
[2024-05-28 10:41] VITALS: BP 104/72; PULSE 78; TEMP 96.1; O2SAT 99
[2024-05-31] MEDS ORDERED: ISOS5TAB4 PO (17:04)
[2024-05-31] MEDS ORDERED: ATOR20TA65 MT (17:04)
[2024-05-31] MEDS ORDERED: ONDA-241 MT (17:08)
[2024-05-31] MEDS ORDERED: HYDR-4001 MT (17:08)
[2024-05-31] MEDS ORDERED: RIVA20TA MT (17:08)
[2024-05-31] MEDS ORDERED: LEVO150T8 MT (17:08)
== END 2024-05-28 12:30 | disposition home or self-care (01) | DRG 194 ==
LOC: ER 23:01 → 8WST 05-23 04:13 → EDBEDREQ 05-23 04:19 → 6EST 05-24 02:43
PROVIDERS: ADMIT Internal Medicine; ATTEND Internal Medicine
PROC: 05HY33Z Insertion of Infusion Device into Upper Vein, Percutaneous Approach (ICD-10-PCS; principal; 2024-05-24)
PROC: B54MZZA Ultrasonography of Right Upper Extremity Veins, Guidance (ICD-10-PCS; 2024-05-24)
DX: I11.0 Hypertensive heart disease with heart failure (principal); J96.12 Chronic respiratory failure with hypercapnia; E87.3 Alkalosis; E66.2 Morbid (severe) obesity with alveolar hypoventilation; E11.40 Type 2 diabetes mellitus with diabetic neuropathy, unspecified; J44.1 Chronic obstructive pulmonary disease with (acute) exacerbation; I50.43 Acute on chronic combined systolic (congestive) and diastolic (congestive) heart failure; I48.20 Chronic atrial fibrillation, unspecified; E78.5 Hyperlipidemia, unspecified; E03.9 Hypothyroidism, unspecified; Z87.891 Personal history of nicotine dependence; Z79.899 Other long term (current) drug therapy; Z79.01 Long term (current) use of anticoagulants; Z86.718 Personal history of other venous thrombosis and embolism; Z88.6 Allergy status to analgesic agent; Z91.119 Patient's noncompliance with dietary regimen due to unspecified reason; Z91.148 Patient's other noncompliance with medication regimen for other reason; Z88.8 Allergy status to other drugs, medicaments and biological substances; Z68.45 Body mass index [BMI] 70 or greater, adult
CPT/HCPCS: 36415; 36573; 36600; 71045; 80048; 80061; 82375; 82550; 82805; 82962; 83036; 83880; 84443; 84484; 85025; 85027; 85379; 85651; 93005; 93970; 99285; C1725; J0696; J1815; J1940; J2405; J3490

== ENCOUNTER 2024-06-25 07:27 | Inpatient (IN) | payer MEDICARE, MEDICAID ==
[~2024-06-25] VITALS: Ht 167.6 cm; Wt 207.9 kg
[~2024-06-25 07:27] MED LIST changes: -ALBU6.7H15 INH; +ATOR20TA65 MT; -ATOR20TA65 PO; -AZEL137S7 BOTHNSTRLS; -FAMO20TA8 PO; -FURO40TA5 PO; -GABA300C MT; +HYDR-4001 MT; -HYDR-4001 PO; -ISOS10TA2 PO; +ISOS5TAB4 PO; +LEVO150T8 MT; -LEVO150T8 PO; +MAG-135 PO; +ONDA-241 MT; -ONDA-241 SL; -P20 PO; -POTA-205 MT; +RIVA20TA MT; -RIVA20TA PO; -SEMA0.258 SUBCUT
[2024-06-25 07:58] LABS: BASOPHILS % 0.9 % (0.0-2.0); DIFFERENTIAL COMMENT 0; EOSINOPHILS % 0.4 % (0.0-5.0); HEMATOCRIT. 43.8 % (36.0-48.0); HEMOGLOBIN. 13.5 g/dL (12.0-16.0); LYMPHOCYTES % 22.9 % (20.0-50.0); MEAN CORPUSCULAR HEMOGLOBIN 26.2 pg (28.0-32.0); MEAN CORPUSCULAR HGB CONC 30.8 g/dL (31.0-37.0); MEAN CORPUSCULAR VOLUME 85.2 fL (81.0-99.0); MEAN PLATELET VOLUME 8.1 fl (7.4-10.4); MONOCYTES % 12.1 % (2.0-8.0); NEUTROPHILS % 63.7 % (40.0-76.0); PLATELET 225 x1000/uL (130-400); RED BLOOD CELL COUNT 5.14 mill/uL (4.2-5.4); RED CELL DISTRIBUTION WIDTH 19.1 % (11.6-14.6); WHITE BLOOD COUNT 8.3 x1000/uL (4.5-11.0)
[2024-06-25 08:04] LABS: CHLORIDE 101 mEq/L (98-107); POTASSIUM 5.1 mEq/L (3.5-5.1); SODIUM 137 mEq/L (136-145)
[2024-06-25 08:05] LABS: CALCIUM 9.7 mg/dL (8.7-10.4); CARBON DIOXIDE 32 mEq/L (21-32)
[2024-06-25 08:10] LABS: GLUCOSE 135 mg/dL (70-105); UREA NITROGEN BLOOD 26 mg/dL (9-23)
[2024-06-25 08:11] LABS: TROPONIN I HIGH SENSITIVITY 10 ng/L (3.0-34)
[2024-06-25 08:12] LABS: ALANINE AMINOTRANSFERASE 31 IU/L (10-49); ALBUMIN 4.4 g/dL (3.2-4.8); ASPARTATE AMINOTRANSFERASE 39 IU/L (<34); BILIRUBIN DIRECT 0.6 mg/dL (<=3.0); BILIRUBIN TOTAL 1.5 mg/dL (0.1-1.0); PROTEIN TOTAL 7.7 g/dL (6.0-8.3)
[2024-06-25 08:19] LABS: INR 1.2; PROTHROMBIN TIME 13.1 sec (9.6-11.0)
[2024-06-25 08:32] LABS: CREATININE 1.3 mg/dL (0.6-1.0)
[2024-06-25] MEDS: SODIUM CHLORIDE 0.9% 1000ML BAG (SEPSIS BOLUS) IV ONE (08:35)
[2024-06-25] MEDS: PIPERACILLIN/TAZO 3.375G/50ML 50 ML IV ONE (08:43)
[2024-06-25] MEDS: DILTIAZEM HCL 5MG/ML 5ML VIAL IV ONE (08:43)
[2024-06-25] MEDS: VANCOMYCIN 1G PREMIX 200 ML IV ONE (09:06)
[2024-06-25] MEDS ORDERED: GUAIFENESIN 200MG/10ML SUGAR FREE UDC PO PRN (12:45)
[2024-06-25] MEDS ORDERED: CLONIDINE 0.1MG TABLET PO PRN (12:45)
[2024-06-25] MEDS ORDERED: ACETAMINOPHEN 325MG TABLET PO PRN (12:45)
[2024-06-25] MEDS ORDERED: MAGNESIUM/ALUMINUM HYDROXIDE/SIMETHICONE 30ML UDC PO PRN (12:45)
[2024-06-25] MEDS: AMIODARONE 200MG TABLET PO NR (13:54)
[2024-06-25] MEDS ORDERED: DILTIAZEM HCL 5MG/ML 5ML VIAL IV PRN (16:15)
[2024-06-25] MEDS: RIVAROXABAN 20 MG TABLET PO SCH (17:08)
[2024-06-25] MEDS: METOPROLOL TARTRATE 50MG TABLET PO SCH (17:08)
[2024-06-25 18:02] LABS: PHOSPHORUS 4.1 mg/dL (2.5-4.9)
[2024-06-25] MEDS ORDERED: CARVEDILOL 6.25 MG TABLET PO SCH (21:00)
[2024-06-25 21:20] VITALS: BP 118/96; PULSE 118; RESP 25; TEMP 36.6404
[2024-06-25 22:00] VITALS: BP 118/96; PULSE 117; RESP 20; TEMP 36.50292; O2SAT 89
[2024-06-25] MEDS ORDERED: NALOXONE HCL 0.4MG/ML VIAL IV PRN (22:45)
[2024-06-25] MEDS: ATORVASTATIN CALCIUM 20MG TABLET PO SCH (22:46)
[2024-06-25] MEDS: HYDROCODONE/ACETAMINOPHEN 5/325MG TABLET PO PRN (22:48)
[2024-06-26] VITALS (15 sets, daily range): BP systolic 76–128; BP diastolic 59–97; PULSE 91–113; RESP 16–25; TEMP 36.22512–36.50292; O2SAT 79–97
[2024-06-26 00:19] LABS: CREATINE KINASE MB FRACTION 1.8 ng/mL (0.5-3.6)
[2024-06-26] MEDS: IPRATROPIUM/ALBUTEROL 0.5-3(2.5)MG/3ML NEB HHN PRN (04:30)
[2024-06-26] MEDS: LEVOTHYROXINE SODIUM 150MCG TABLET PO SCH (09:18)
[2024-06-26] MEDS: ACETAMINOPHEN 325MG TABLET PO PRN (09:56)
[2024-06-26 13:03] LABS: *AMPHETAMINES SCREEN URINE NEGATIVE (NEGATIVE); *BENZODIAZEPINES SCREEN URINE NEGATIVE (NEGATIVE)
[2024-06-26 13:04] LABS: *BARBITURATES SCREEN URINE NEGATIVE (NEGATIVE); *COCAINE SCREEN URINE NEGATIVE (NEGATIVE); CANNABINOID URINE SCREEN NEGATIVE (NEGATIVE); ECSTASY MDMA SCREEN URINE NEGATIVE (NEGATIVE); METHADONE URINE SCREEN NEGATIVE (NEGATIVE); OPIATES URINE SCREEN NEGATIVE (NEGATIVE); PHENCYCLIDINE URINE SCREEN NEGATIVE (NEGATIVE)
[2024-06-26 14:27] LABS: BG BASE EXCESS 6.5 mmol/L (-2.0-3.0); BG CARBOXYHEMOGLOBIN 1.4 % (0.5-1.5); BG DEOXYHEMOGLOBIN 4.6 % (0.0-5.0); BG FRACTION INSPIRED OXYGEN 40; BG HCO3 ACT 39.6 mmol/L (21.0-28.0); BG METHEMOGLOBIN 0.3 % (0.5-1.5); BG OXYGEN SATURATION 95.3 % (94.0-98.0); BG OXYHEMOGLOBIN 93.7 % (94.0-98.0); BG PCO2 114.3 mmHg (32.0-45.0); BG PH 7.158 (7.350-7.450); BG PO2 96.2 mmHg (83.0-108.0); BG SAMPLE SITE RIGHT RADIAL; BG VENT MODE MASK - SIMPLE
[2024-06-26] MEDS ORDERED: BUDESONIDE 0.5MG/2ML NEB HHN SCH (15:00)
[2024-06-26 17:28] LABS: BASOPHILS % 0.7 % (0.0-2.0); EOSINOPHILS % 0.6 % (0.0-5.0); HEMATOCRIT. 43.2 % (36.0-48.0); HEMOGLOBIN. 13.1 g/dL (12.0-16.0); LYMPHOCYTES % 16.1 % (20.0-50.0); MEAN CORPUSCULAR HEMOGLOBIN 26.3 pg (28.0-32.0); MEAN CORPUSCULAR HGB CONC 30.3 g/dL (31.0-37.0); MEAN CORPUSCULAR VOLUME 86.9 fL (81.0-99.0); MONOCYTES % 12.2 % (2.0-8.0); NEUTROPHILS % 70.4 % (40.0-76.0); RED BLOOD CELL COUNT 4.97 mill/uL (4.2-5.4); RED CELL DISTRIBUTION WIDTH 18.5 % (11.6-14.6)
[2024-06-26 17:29] LABS: DIFFERENTIAL COMMENT 1; POTASSIUM 5.9 mEq/L (3.5-5.1)
[2024-06-26 17:30] LABS: CALCIUM 9.3 mg/dL (8.7-10.4)
[2024-06-26 17:35] LABS: CREATININE 1.4 mg/dL (0.6-1.0)
[2024-06-26 17:40] LABS: T4 FREE 1.09 ng/dL (0.89-1.76); THYROID STIMULATING HORMONE 7.61 uIU/mL (0.55-4.78)
[2024-06-26 19:18] LABS: PLATELET 148 x1000/uL (130-400)
[2024-06-26] MEDS: IPRATROPIUM/ALBUTEROL 0.5-3(2.5)MG/3ML NEB HHN SCH (20:05)
[2024-06-26] MEDS: INSULIN REGULAR (HUMULIN R) 1000UNITS/10ML VIAL IV NR (21:03)
[2024-06-26] MEDS: DEXTROSE 50% WATER 50ML SYRINGE IV NR (21:03)
[2024-06-26] MEDS: CALCIUM CHLORIDE 1GM/10ML SYR IV NR (21:03)
[2024-06-26 22:27] LABS: BG BASE EXCESS 1.8 mmol/L (-2.0-3.0); BG CARBOXYHEMOGLOBIN 0.8 % (0.5-1.5); BG DEOXYHEMOGLOBIN 1.3 % (0.0-5.0); BG FRACTION INSPIRED OXYGEN 60; BG HCO3 ACT 32.2 mmol/L (21.0-28.0); BG METHEMOGLOBIN 0.3 % (0.5-1.5); BG OXYGEN SATURATION 98.7 % (94.0-98.0); BG OXYHEMOGLOBIN 97.6 % (94.0-98.0); BG PCO2 83.8 mmHg (32.0-45.0); BG PH 7.203 (7.350-7.450); BG PO2 140.3 mmHg (83.0-108.0); BG SAMPLE SITE LEFT RADIAL; BG TOTAL HEMOGLOBIN 13.3 g/dL (12.0-16.0); BG VENT MODE MASK - BIPAP
[2024-06-27] VITALS (20 sets, daily range): BP systolic 82–135; BP diastolic 52–107; PULSE 82–129; RESP 14–32; TEMP 36.114–36.6696; O2SAT 86–99
[2024-06-27] MEDS: BUDESONIDE 0.5MG/2ML NEB HHN SCH (00:06)
[2024-06-27] MEDS ORDERED: DEXTROSE 50% WATER 50ML SYRINGE IV PRN (03:45)
[2024-06-27] MEDS: INSULIN LISPRO 100 UNITS/ML SUBCUT SCH (08:00)
[2024-06-27] MEDS: BLOOD SUGAR DIAGNOSTIC STRIP TEST SCH (08:23)
[2024-06-27 09:04] LABS: BG BASE EXCESS 5.3 mmol/L (-2.0-3.0); BG DEOXYHEMOGLOBIN 5.8 % (0.0-5.0); BG FRACTION INSPIRED OXYGEN 30; BG HCO3 ACT 35.6 mmol/L (21.0-28.0); BG METHEMOGLOBIN 0.3 % (0.5-1.5); BG OXYGEN SATURATION 94.1 % (94.0-98.0); BG OXYHEMOGLOBIN 92.9 % (94.0-98.0); BG PCO2 85.8 mmHg (32.0-45.0); BG PH 7.236 (7.350-7.450); BG PO2 75.8 mmHg (83.0-108.0); BG SAMPLE SITE RIGHT RADIAL; BG TOTAL HEMOGLOBIN 13.2 g/dL (12.0-16.0); BG VENT MODE MASK - BIPAP
[2024-06-27 10:57] LABS: BASOPHILS % 0.3 % (0.0-2.0); DIFFERENTIAL COMMENT 0; EOSINOPHILS % 0.7 % (0.0-5.0); HEMATOCRIT. 40.3 % (36.0-48.0); LYMPHOCYTES % 15.3 % (20.0-50.0); MEAN CORPUSCULAR HEMOGLOBIN 25.5 pg (28.0-32.0); MEAN CORPUSCULAR HGB CONC 29.7 g/dL (31.0-37.0); MEAN CORPUSCULAR VOLUME 85.8 fL (81.0-99.0); MEAN PLATELET VOLUME 8.3 fl (7.4-10.4); MONOCYTES % 14.3 % (2.0-8.0); NEUTROPHILS % 69.4 % (40.0-76.0); PLATELET 180 x1000/uL (130-400); RED CELL DISTRIBUTION WIDTH 18.2 % (11.6-14.6); WHITE BLOOD COUNT 6.7 x1000/uL (4.5-11.0)
[2024-06-27 11:07] LABS: POTASSIUM 5.2 mEq/L (3.5-5.1)
[2024-06-27 11:09] LABS: CALCIUM 9.6 mg/dL (8.7-10.4)
[2024-06-27 11:13] LABS: CREATININE 1.4 mg/dL (0.6-1.0)
[2024-06-27 12:19] LABS: BG BASE EXCESS 3.6 mmol/L (-2.0-3.0); BG CARBOXYHEMOGLOBIN 0.9 % (0.5-1.5); BG DEOXYHEMOGLOBIN 4.7 % (0.0-5.0); BG FRACTION INSPIRED OXYGEN 32; BG HCO3 ACT 31.7 mmol/L (21.0-28.0); BG METHEMOGLOBIN 0.3 % (0.5-1.5); BG OXYGEN SATURATION 95.2 % (94.0-98.0); BG OXYHEMOGLOBIN 94.1 % (94.0-98.0); BG PCO2 65.6 mmHg (32.0-45.0); BG PH 7.302 (7.350-7.450); BG PO2 80.2 mmHg (83.0-108.0); BG SAMPLE SITE RIGHT RADIAL; BG TOTAL HEMOGLOBIN 12.6 g/dL (12.0-16.0); BG VENT MODE MASK - BIPAP
[2024-06-27] MEDS ORDERED: WATER IV SCH (18:30)
[2024-06-27] MEDS ORDERED: METHYLPREDNISOLONE SOD SUCC IV SCH (18:30)
[2024-06-27] MEDS ORDERED: DEXT 5% IV SCH (18:30)
[2024-06-27] MEDS: FAMOTIDINE 20MG TABLET PO SCH (20:25)
[2024-06-28] VITALS (12 sets, daily range): BP systolic 103–155; BP diastolic 70–118; PULSE 84–115; RESP 14–30; TEMP 36.33624–36.78072; O2SAT 89–96
[2024-06-28 06:58] LABS: BG BASE EXCESS 9.5 mmol/L (-2.0-3.0); BG DEOXYHEMOGLOBIN 0.9 % (0.0-5.0); BG FRACTION INSPIRED OXYGEN 32; BG HCO3 ACT 30.9 mmol/L (21.0-28.0); BG METHEMOGLOBIN 0.3 % (0.5-1.5); BG OXYGEN SATURATION 99.1 % (94.0-98.0); BG OXYHEMOGLOBIN 97.8 % (94.0-98.0); BG PCO2 31.3 mmHg (32.0-45.0); BG PH 7.612 (7.350-7.450); BG PO2 143.3 mmHg (83.0-108.0); BG SAMPLE SITE LEFT RADIAL; BG TOTAL HEMOGLOBIN 12.7 g/dL (12.0-16.0); BG VENT MODE NASAL CANNULA
[2024-06-28] MEDS: SODIUM POLYSTYRENE SULFONATE 15 G/60 ML BOT PO SCH (08:00)
[2024-06-28] MEDS ORDERED: LIDOCAINE HCL 1% 10 MG/ML 10ML VIAL ONE (09:18)
[2024-06-28] MEDS ORDERED: METHYLPREDNISOLONE SOD SUCC 40MG/ML (ACT-O-VIAL) IV SCH (19:00)
== END 2024-06-28 18:45 | disposition home or self-care (01) | DRG 133 ==
LOC: ER 07:27 → 5EST 09:26 → EDBEDREQTM 09:29 → EDBEDREQ 09:29 → EDBEDREQSVC 13:09
PROVIDERS: ADMIT Internal Medicine; ATTEND Internal Medicine
PROC: 5A09357 Assistance with Respiratory Ventilation, Less than 24 Consecutive Hours, Continuous Positive Airway Pressure (ICD-10-PCS; principal; 2024-06-26)
PROC: 5A09357 Assistance with Respiratory Ventilation, Less than 24 Consecutive Hours, Continuous Positive Airway Pressure (ICD-10-PCS; 2024-06-27)
PROC: 5A09357 Assistance with Respiratory Ventilation, Less than 24 Consecutive Hours, Continuous Positive Airway Pressure (ICD-10-PCS; 2024-06-28)
DX: J96.21 Acute and chronic respiratory failure with hypoxia (principal); I50.33 Acute on chronic diastolic (congestive) heart failure; E87.29 Other acidosis; R65.10 Systemic inflammatory response syndrome (SIRS) of non-infectious origin without acute organ dysfunction; I48.20 Chronic atrial fibrillation, unspecified; E66.2 Morbid (severe) obesity with alveolar hypoventilation; I11.0 Hypertensive heart disease with heart failure; Z99.81 Dependence on supplemental oxygen; G47.10 Hypersomnia, unspecified; J44.1 Chronic obstructive pulmonary disease with (acute) exacerbation; E03.9 Hypothyroidism, unspecified; E11.9 Type 2 diabetes mellitus without complications; F17.210 Nicotine dependence, cigarettes, uncomplicated; J96.22 Acute and chronic respiratory failure with hypercapnia; Z68.30 Body mass index [BMI] 30.0-30.9, adult; Z88.6 Allergy status to analgesic agent; Z91.199 Patient's noncompliance with other medical treatment and regimen due to unspecified reason; Z91.148 Patient's other noncompliance with medication regimen for other reason; Z79.01 Long term (current) use of anticoagulants; Z79.4 Long term (current) use of insulin; Z79.899 Other long term (current) drug therapy
CPT/HCPCS: 36415; 36600; 71045; 80048; 80076; 80305; 82375; 82550; 82553; 82805; 82962; 83036; 83605; 83735; 84100; 84145; 84439; 84443; 84484; 85025; 93005; 94640; 94660; 99291; A6261; C1893; J1815; J2543; J3370; J3490; J7030; J7626

== ENCOUNTER 2024-07-23 00:20 | Emergency (ER) | payer MEDICARE, MEDICAID ==
[~2024-07-23] VITALS: Ht 172.7 cm; Wt 202.0 kg
[~2024-07-23 00:20] MED LIST changes: -ATOR20TA65 MT; +ATOR20TA65 PO; +FAMO20TA8 PO; +FURO40TA5 PO; +GABA-532 PO; -HYDR-4001 MT; +HYDR-4009 PO; +IBUP-2028 MT; +ISOS10TA2 PO; -ISOS5TAB4 PO; -LEVO150T8 MT; +LEVO150T8 PO; -ONDA-241 MT; +PANT40TA51 PO; +POTA-204 PO; -RIVA20TA MT; +RIVA20TA PO; +SACU1TAB7 PO
[2024-07-23 00:33] VITALS: O2SAT 97
[2024-07-23 01:36] LABS: BASOPHILS % 0.7 % (0.0-2.0); EOSINOPHILS % 2.1 % (0.0-5.0); HEMATOCRIT. 43.4 % (36.0-48.0); HEMOGLOBIN. 13.7 g/dL (12.0-16.0); LYMPHOCYTES % 26.5 % (20.0-50.0); MEAN CORPUSCULAR HEMOGLOBIN 26.5 pg (28.0-32.0); MEAN CORPUSCULAR HGB CONC 31.6 g/dL (31.0-37.0); MEAN CORPUSCULAR VOLUME 83.8 fL (81.0-99.0); MEAN PLATELET VOLUME 6.9 fl (7.4-10.4); MONOCYTES % 12.6 % (2.0-8.0); NEUTROPHILS % 58.1 % (40.0-76.0); PLATELET 222 x1000/uL (130-400); RED BLOOD CELL COUNT 5.18 mill/uL (4.2-5.4); WHITE BLOOD COUNT 4.7 x1000/uL (4.5-11.0)
[2024-07-23 01:43] LABS: CHLORIDE 92 mEq/L (98-107); SODIUM 140 mEq/L (136-145)
[2024-07-23 01:44] LABS: CALCIUM 9.9 mg/dL (8.7-10.4)
[2024-07-23 01:49] LABS: CREATININE 0.9 mg/dL (0.6-1.0); GLUCOSE 127 mg/dL (70-105); UREA NITROGEN BLOOD 14 mg/dL (9-23)
[2024-07-23 01:50] LABS: INR 1.1; PROTHROMBIN TIME 11.9 sec (9.6-11.0); TROPONIN I HIGH SENSITIVITY 9 ng/L (3.0-34)
[2024-07-23 01:51] LABS: ALANINE AMINOTRANSFERASE 14 IU/L (10-49); ASPARTATE AMINOTRANSFERASE 25 IU/L (<34); BILIRUBIN DIRECT 0.3 mg/dL (<=3.0)
[2024-07-23 01:52] LABS: BILIRUBIN TOTAL 0.8 mg/dL (0.1-1.0); PROTEIN TOTAL 7.3 g/dL (6.0-8.3)
[2024-07-23 01:56] LABS: POTASSIUM 2.7 mEq/L (3.5-5.1)
[2024-07-23 01:57] LABS: CARBON DIOXIDE > 40 mEq/L (21-32)
[2024-07-23] MEDS: MORPHINE SULFATE 4 MG/ML INJ (FOR IV/IM USE) IV STA (02:10)
[2024-07-23] MEDS: POTASSIUM CHLORIDE 20MEQ TABLET SR PO ONE (03:33)
[2024-07-23] MEDS: KCL 10MEQ/50ML PREMIX 50 ML IV ONE (03:33)
[2024-07-23 03:41] LABS: TROPONIN I HIGH SENSITIVITY 12 ng/L (3.0-34)
[2024-07-23 16:14] VITALS: BP 158/80; PULSE 70; RESP 16; TEMP 36.89184; O2SAT 98
== END 2024-07-23 16:14 | disposition home or self-care (01) ==
LOC: ER 00:20 → EDBEDREQ 04:48 → CANBEDREQ 08:28 → ER 16:14
DX: E87.6 Hypokalemia (principal); R10.9 Unspecified abdominal pain; I11.0 Hypertensive heart disease with heart failure; I50.9 Heart failure, unspecified; E11.9 Type 2 diabetes mellitus without complications; Z88.6 Allergy status to analgesic agent; Z79.899 Other long term (current) drug therapy; Z91.09 Other allergy status, other than to drugs and biological substances; Z86.73 Personal history of transient ischemic attack (TIA), and cerebral infarction without residual deficits
CPT/HCPCS: 99291; 74176; 96365; 96375; 80076; 80048; 85025; 85610; 84484; 36415; 93005; J3480; J2270

== ENCOUNTER 2024-08-11 12:24 | Inpatient (IN) | payer MEDICARE, MEDICAID ==
[~2024-08-11] VITALS: Ht 162.6 cm; Wt 197.5 kg
[~2024-08-11 12:24] MED LIST changes: -DOCU-150 PO; +DOCU-422 PO; +GABA-1180 PO; -GABA-532 PO
[2024-08-11 14:28] LABS: BG BASE EXCESS 9.3 mmol/L (-2.0-3.0); BG CARBOXYHEMOGLOBIN 1.1 % (0.5-1.5); BG DEOXYHEMOGLOBIN 5.6 % (0.0-5.0); BG FRACTION INSPIRED OXYGEN 28; BG HCO3 ACT 37.7 mmol/L (21.0-28.0); BG METHEMOGLOBIN 0.3 % (0.5-1.5); BG OXYGEN SATURATION 94.3 % (94.0-98.0); BG PCO2 73.2 mmHg (32.0-45.0); BG PO2 71.8 mmHg (83.0-108.0); BG SAMPLE SITE RIGHT BRACHIAL; BG VENT MODE NASAL CANNULA
[2024-08-11] MEDS ORDERED: DOCUSATE SODIUM 100MG CAPSULE PO PRN (15:00)
[2024-08-11] MEDS ORDERED: GUAIFENESIN 200MG/10ML SUGAR FREE UDC PO PRN (15:00)
[2024-08-11] MEDS ORDERED: CLONIDINE 0.1MG TABLET PO PRN (15:00)
[2024-08-11] MEDS ORDERED: ACETAMINOPHEN 325MG TABLET PO PRN (15:00)
[2024-08-11] MEDS ORDERED: IPRATROPIUM/ALBUTEROL 0.5-3(2.5)MG/3ML NEB HHN PRN (15:00)
[2024-08-11 15:05] VITALS: RESP 57
[2024-08-11] MEDS: IPRATROPIUM/ALBUTEROL 0.5-3(2.5)MG/3ML NEB HHN NR (15:05)
[2024-08-11 15:09] LABS: BASOPHILS % 0.9 % (0.0-2.0); DIFFERENTIAL COMMENT 0; EOSINOPHILS % 1.5 % (0.0-5.0); HEMATOCRIT. 40.3 % (36.0-48.0); HEMOGLOBIN. 11.9 g/dL (12.0-16.0); LYMPHOCYTES % 24.9 % (20.0-50.0); MEAN CORPUSCULAR HEMOGLOBIN 25.7 pg (28.0-32.0); MEAN CORPUSCULAR HGB CONC 29.5 g/dL (31.0-37.0); MEAN CORPUSCULAR VOLUME 86.9 fL (81.0-99.0); MEAN PLATELET VOLUME 7.5 fl (7.4-10.4); MONOCYTES % 12.4 % (2.0-8.0); NEUTROPHILS % 60.3 % (40.0-76.0); PLATELET 206 x1000/uL (130-400); RED BLOOD CELL COUNT 4.63 mill/uL (4.2-5.4); RED CELL DISTRIBUTION WIDTH 19.5 % (11.6-14.6); WHITE BLOOD COUNT 4.1 x1000/uL (4.5-11.0)
[2024-08-11 15:14] LABS: CHLORIDE 104 mEq/L (98-107); POTASSIUM 4.1 mEq/L (3.5-5.1); SODIUM 144 mEq/L (136-145)
[2024-08-11 15:15] LABS: CALCIUM 9.4 mg/dL (8.7-10.4)
[2024-08-11 15:20] LABS: CREATININE 0.9 mg/dL (0.6-1.0); GLUCOSE 112 mg/dL (70-105); UREA NITROGEN BLOOD 14 mg/dL (9-23)
[2024-08-11 15:23] LABS: TROPONIN I HIGH SENSITIVITY 9 ng/L (3.0-34)
[2024-08-11 15:38] LABS: CARBON DIOXIDE > 40 mEq/L (21-32)
[2024-08-11 17:40] VITALS: RESP 24
[2024-08-11] MEDS: ENOXAPARIN 150MG/ML SYR SUBCUT SCH (20:00)
[2024-08-11] MEDS ORDERED: ENOXAPARIN 40MG/0.4ML SYR SUBCUT SCH (21:00)
[2024-08-11] MEDS: FAMOTIDINE 20MG TABLET PO SCH (22:43)
[2024-08-11] MEDS: ATORVASTATIN CALCIUM 20MG TABLET PO SCH (22:43)
[2024-08-11] MEDS: ISOSORBIDE DINITRATE 10MG TABLET PO SCH (22:43)
[2024-08-11] MEDS: METOPROLOL TARTRATE 50MG TABLET PO SCH (22:44)
[2024-08-11] MEDS: FUROSEMIDE 40MG/4ML VIAL IVP SCH (22:44)
[2024-08-12] VITALS (12 sets, daily range): BP systolic 99–121; BP diastolic 71–95; PULSE 92–132; RESP 15–26; TEMP 36.418–36.89184; O2SAT 83–99
[2024-08-12] MEDS ORDERED: ENOXAPARIN 150MG/ML SYR SUBCUT SCH (06:00)
[2024-08-12 08:00] LABS: INR 1.1; PROTHROMBIN TIME 11.9 sec (9.6-11.0)
[2024-08-12] MEDS ORDERED: FUROSEMIDE 40MG TABLET PO SCH (09:00)
[2024-08-12] MEDS: AMLODIPINE 10MG TABLET PO SCH (09:02)
[2024-08-12] MEDS: LEVOTHYROXINE SODIUM 150MCG TABLET PO SCH (09:03)
[2024-08-12] MEDS: PREDNISONE 10MG TABLET PO SCH (18:10)
[2024-08-12] MEDS: BUDESONIDE 0.5MG/2ML NEB HHN SCH (20:49)
[2024-08-12] MEDS: IPRATROPIUM/ALBUTEROL 0.5-3(2.5)MG/3ML NEB HHN SCH (20:50)
[2024-08-12] MEDS: GABAPENTIN 300MG CAPSULE PO SCH (21:43)
[2024-08-13] VITALS (11 sets, daily range): BP systolic 94–114; BP diastolic 57–87; PULSE 84–111; RESP 13–23; TEMP 36.44736–37.05852; O2SAT 78–96
[2024-08-13] MEDS: ACETAMINOPHEN 325MG TABLET PO PRN (17:28)
[2024-08-13] MEDS: ENOXAPARIN 150MG/ML SYR SUBCUT SCH (19:14)
[2024-08-14] VITALS (13 sets, daily range): BP systolic 98–118; BP diastolic 68–92; PULSE 85–132; RESP 15–24; TEMP 36.00288–37.16964; O2SAT 85–100
[2024-08-14 12:56] LABS: HEMATOCRIT 40.1 % (36.0-48.0); HEMOGLOBIN 12.5 g/dL (12.0-16.0); MEAN CORPUSCULAR HEMOGLOBIN 26.8 pg (28.0-32.0); MEAN CORPUSCULAR HGB CONC 31.2 g/dL (31.0-37.0); MEAN CORPUSCULAR VOLUME 85.8 fL (81.0-99.0); PLATELET 183 x1000/uL (130-400); RED BLOOD CELL COUNT 4.68 mill/uL (4.2-5.4); RED CELL DISTRIBUTION WIDTH 18.9 % (11.6-14.6); WHITE BLOOD COUNT 5.4 x1000/uL (4.5-11.0)
[2024-08-14 12:58] LABS: CHLORIDE 95 mEq/L (98-107); POTASSIUM 3.7 mEq/L (3.5-5.1); SODIUM 139 mEq/L (136-145)
[2024-08-14 12:59] LABS: CALCIUM 9.5 mg/dL (8.7-10.4)
[2024-08-14 13:04] LABS: GLUCOSE 122 mg/dL (70-105); UREA NITROGEN BLOOD 13 mg/dL (9-23)
[2024-08-14 13:14] LABS: CARBON DIOXIDE > 40 mEq/L (21-32)
[2024-08-15] VITALS (9 sets, daily range): BP systolic 108–152; BP diastolic 74–134; PULSE 80–107; RESP 16–24; TEMP 36.22512–36.61404; O2SAT 92–98
== END 2024-08-15 18:18 | disposition home or self-care (01) | DRG 194 ==
LOC: ER 12:24 → 5EST 14:43 → EDBEDREQSVC 14:53 → EDBEDREQTM 14:53 → EDBEDREQ 14:53
PROVIDERS: ADMIT Internal Medicine; ATTEND Internal Medicine
PROC: 5A09357 Assistance with Respiratory Ventilation, Less than 24 Consecutive Hours, Continuous Positive Airway Pressure (ICD-10-PCS; principal; 2024-08-11)
PROC: 5A09357 Assistance with Respiratory Ventilation, Less than 24 Consecutive Hours, Continuous Positive Airway Pressure (ICD-10-PCS; 2024-08-12)
PROC: 5A09357 Assistance with Respiratory Ventilation, Less than 24 Consecutive Hours, Continuous Positive Airway Pressure (ICD-10-PCS; 2024-08-13)
PROC: 5A09357 Assistance with Respiratory Ventilation, Less than 24 Consecutive Hours, Continuous Positive Airway Pressure (ICD-10-PCS; 2024-08-14)
DX: I11.0 Hypertensive heart disease with heart failure (principal); J96.21 Acute and chronic respiratory failure with hypoxia; E11.40 Type 2 diabetes mellitus with diabetic neuropathy, unspecified; I50.33 Acute on chronic diastolic (congestive) heart failure; J44.1 Chronic obstructive pulmonary disease with (acute) exacerbation; I48.19 Other persistent atrial fibrillation; Z99.81 Dependence on supplemental oxygen; Z68.44 Body mass index [BMI] 60.0-69.9, adult; J96.22 Acute and chronic respiratory failure with hypercapnia; I87.8 Other specified disorders of veins; E66.01 Morbid (severe) obesity due to excess calories; I20.9 Angina pectoris, unspecified; E03.9 Hypothyroidism, unspecified; E78.5 Hyperlipidemia, unspecified; G47.33 Obstructive sleep apnea (adult) (pediatric); Z86.73 Personal history of transient ischemic attack (TIA), and cerebral infarction without residual deficits; Z88.6 Allergy status to analgesic agent; Z91.199 Patient's noncompliance with other medical treatment and regimen due to unspecified reason; Z91.148 Patient's other noncompliance with medication regimen for other reason
CPT/HCPCS: 36415; 36600; 71045; 80048; 80061; 82375; 82805; 82962; 83880; 84439; 84443; 84484; 85025; 85027; 93005; 93970; 94640; 94660; 99291; C1893; J1650; J1940; J7512; J7626

== ENCOUNTER 2024-08-23 08:53 | Inpatient (IN) | payer MEDICARE, MEDICAID ==
[2024-08-23] VITALS (7 sets, daily range): BP systolic 95–122; BP diastolic 55–105; PULSE 101–113; RESP 17–24; TEMP 36.55848–36.5848; O2SAT 93–98
[~2024-08-23] VITALS: Ht 167.6 cm; Wt 182.3 kg
[~2024-08-23 08:53] MED LIST changes: +DULO60CA64 MT
[2024-08-23] MEDS: SODIUM CHLORIDE 0.9% 1,000 ML IV ONE (09:15)
[2024-08-23] MEDS: PIPERACILLIN/TAZO 3.375G/50ML 50 ML IV ONE (09:15)
[2024-08-23 09:27] LABS: BASOPHILS % 0.5 % (0.0-2.0); EOSINOPHILS % 0.3 % (0.0-5.0); HEMATOCRIT. 45.1 % (36.0-48.0); HEMOGLOBIN. 14.5 g/dL (12.0-16.0); LYMPHOCYTES % 10.2 % (20.0-50.0); MEAN CORPUSCULAR HGB CONC 32.1 g/dL (31.0-37.0); MEAN PLATELET VOLUME 7.6 fl (7.4-10.4); MONOCYTES % 9.5 % (2.0-8.0); NEUTROPHILS % 79.5 % (40.0-76.0); PLATELET 236 x1000/uL (130-400); RED BLOOD CELL COUNT 5.37 mill/uL (4.2-5.4); RED CELL DISTRIBUTION WIDTH 18.2 % (11.6-14.6); WHITE BLOOD COUNT 9.6 x1000/uL (4.5-11.0)
[2024-08-23 09:33] LABS: CHLORIDE 82 mEq/L (98-107); POTASSIUM 3.6 mEq/L (3.5-5.1); SODIUM 135 mEq/L (136-145)
[2024-08-23 09:34] LABS: CALCIUM 10.3 mg/dL (8.7-10.4)
[2024-08-23] MEDS: VANCOMYCIN 1G PREMIX 200 ML IV ONE (09:35)
[2024-08-23 09:38] LABS: INR 1.1; PROTHROMBIN TIME 12.6 sec (9.6-11.0)
[2024-08-23 09:39] LABS: GLUCOSE 127 mg/dL (70-105); UREA NITROGEN BLOOD 34 mg/dL (9-23)
[2024-08-23 09:42] LABS: CREATININE 2.6 mg/dL (0.6-1.0); LACTIC ACID 2.9 mmol/L (0.4-2.0)
[2024-08-23 09:43] LABS: CARBON DIOXIDE > 40 mEq/L (21-32)
[2024-08-23] MEDS: METHYLPREDNISOLONE SOD SUCC 125MG/2ML (ACT-O-VIAL) IV STA (09:53)
[2024-08-23] MEDS: ALBUTEROL (0.083%) 2.5MG/3ML NEB HHN STA (10:01)
[2024-08-23] MEDS: IPRATROPIUM BROMIDE (0.02%) 0.5MG/2.5ML NEB HHN STA (10:01)
[2024-08-23 10:16] LABS: BG BASE EXCESS 15.9 mmol/L (-2.0-3.0); BG CARBOXYHEMOGLOBIN 0.6 % (0.5-1.5); BG DEOXYHEMOGLOBIN 0.7 % (0.0-5.0); BG FRACTION INSPIRED OXYGEN 100; BG HCO3 ACT 46.5 mmol/L (21.0-28.0); BG METHEMOGLOBIN 0.3 % (0.5-1.5); BG OXYGEN SATURATION 99.3 % (94.0-98.0); BG OXYHEMOGLOBIN 98.4 % (94.0-98.0); BG PCO2 85.8 mmHg (32.0-45.0); BG PH 7.352 (7.350-7.450); BG PO2 265.4 mmHg (83.0-108.0); BG SAMPLE SITE LEFT RADIAL; BG TOTAL HEMOGLOBIN 15.5 g/dL (12.0-16.0); BG VENT MODE MASK - NRB
[2024-08-23] MEDS ORDERED: GUAIFENESIN 200MG/10ML SUGAR FREE UDC PO PRN (11:30)
[2024-08-23] MEDS: IPRATROPIUM/ALBUTEROL 0.5-3(2.5)MG/3ML NEB HHN SCH (12:05)
[2024-08-23] MEDS: SODIUM CHLORIDE 0.9% 1,000 ML IV SCH (13:46)
[2024-08-23] MEDS: RIVAROXABAN 20 MG TABLET PO SCH (17:00)
[2024-08-23] MEDS: CARVEDILOL 6.25 MG TABLET PO SCH (21:00)
[2024-08-23] MEDS: ISOSORBIDE DINITRATE 10MG TABLET PO SCH (22:42)
[2024-08-23] MEDS: ATORVASTATIN CALCIUM 20MG TABLET PO SCH (22:43)
[2024-08-23] MEDS: DOCUSATE SODIUM 100MG CAPSULE PO SCH (22:43)
[2024-08-23 23:06] LABS: CLARITY URINE CLOUDY (CLEAR); COLOR URINE YELLOW (YELLOW); GLUCOSE URINE NEGATIVE (NEGATIVE); KETONES URINE NEGATIVE (NEGATIVE); LEUKOCYTE ESTERASE URINE TRACE (NEGATIVE); NITRITE URINE NEGATIVE (NEGATIVE); OCCULT BLOOD URINE NEGATIVE (NEGATIVE); PH URINE 7.5 (4.5-8.0); PROTEIN URINE 2+ (NEGATIVE); SPECIFIC GRAVITY URINE 1.016 (1.005-1.030)
[2024-08-23 23:30] LABS: *AMPHETAMINES SCREEN URINE NEGATIVE (NEGATIVE); *BARBITURATES SCREEN URINE NEGATIVE (NEGATIVE); *BENZODIAZEPINES SCREEN URINE NEGATIVE (NEGATIVE); *COCAINE SCREEN URINE NEGATIVE (NEGATIVE); METHADONE URINE SCREEN NEGATIVE (NEGATIVE)
[2024-08-23 23:31] LABS: CANNABINOID URINE SCREEN NEGATIVE (NEGATIVE); ECSTASY MDMA SCREEN URINE NEGATIVE (NEGATIVE); OPIATES URINE SCREEN NEGATIVE (NEGATIVE); PHENCYCLIDINE URINE SCREEN NEGATIVE (NEGATIVE)
[2024-08-23] MEDS: ACETAMINOPHEN 325MG TABLET PO PRN (23:35)
[2024-08-23 23:36] LABS: BACTERIA URINE 2+; RBC URINE 0-2 /hpf (0-2); SQUAMOUS EPITHELIAL CELL URINE 2+ /lpf (RARE/1+); WBC URINE 0-2 /hpf (0-2)
[2024-08-24] VITALS (17 sets, daily range): BP systolic 95–152; BP diastolic 56–99; PULSE 83–127; RESP 14–30; TEMP 36.114–36.78072; O2SAT 93–97
[2024-08-24 00:11] LABS: TROPONIN I HIGH SENSITIVITY 8 ng/L (3.0-34)
[2024-08-24 04:33] LABS: CREATINE KINASE 252 IU/L (34-145)
[2024-08-24 06:20] LABS: CHLORIDE 85 mEq/L (98-107); POTASSIUM 3.7 mEq/L (3.5-5.1); SODIUM 135 mEq/L (136-145)
[2024-08-24 06:21] LABS: CALCIUM 9.8 mg/dL (8.7-10.4)
[2024-08-24 06:24] LABS: CREATINE KINASE MB FRACTION 1.8 ng/mL (0.5-3.6); TROPONIN I HIGH SENSITIVITY 9 ng/L (3.0-34)
[2024-08-24 06:26] LABS: GLUCOSE 134 mg/dL (70-105); UREA NITROGEN BLOOD 34 mg/dL (9-23)
[2024-08-24 06:28] LABS: CREATINE KINASE 184 IU/L (34-145)
[2024-08-24 06:33] LABS: BASOPHILS % 0.1 % (0.0-2.0); DIFFERENTIAL COMMENT 0; EOSINOPHILS % 0.1 % (0.0-5.0); HEMATOCRIT. 47.4 % (36.0-48.0); HEMOGLOBIN. 14.7 g/dL (12.0-16.0); LYMPHOCYTES % 14.1 % (20.0-50.0); MEAN CORPUSCULAR HEMOGLOBIN 26.4 pg (28.0-32.0); MEAN CORPUSCULAR HGB CONC 31.1 g/dL (31.0-37.0); MEAN CORPUSCULAR VOLUME 84.9 fL (81.0-99.0); MONOCYTES % 4.1 % (2.0-8.0); NEUTROPHILS % 81.6 % (40.0-76.0); PLATELET 203 x1000/uL (130-400); RED BLOOD CELL COUNT 5.58 mill/uL (4.2-5.4); RED CELL DISTRIBUTION WIDTH 18.1 % (11.6-14.6); WHITE BLOOD COUNT 6.6 x1000/uL (4.5-11.0)
[2024-08-24 07:59] LABS: CARBON DIOXIDE > 40 mEq/L (21-32); CREATININE 1.7 mg/dL (0.6-1.0)
[2024-08-24] MEDS: DULOXETINE HCL 60MG DR CAPSULE PO SCH (08:25)
[2024-08-24] MEDS: AMIODARONE 200MG TABLET PO SCH (08:26)
[2024-08-24] MEDS: LEVOTHYROXINE SODIUM 150MCG TABLET PO SCH (08:26)
[2024-08-24] MEDS: PANTOPRAZOLE 40MG DR TABLET PO SCH (08:26)
[2024-08-24] MEDS ORDERED: DULOXETINE HCL 30MG DR CAPSULE PO SCH (09:00)
[2024-08-24] MEDS ORDERED: AMLODIPINE 10MG TABLET PO SCH (09:00)
[2024-08-24] MEDS: ONDANSETRON HCL 4MG/2ML INJ IV PRN (23:24)
[2024-08-25] VITALS (20 sets, daily range): BP systolic 71–144; BP diastolic 46–119; PULSE 88–146; RESP 6–31; TEMP 35.66952–36.6696; O2SAT 93–99
[2024-08-25] MEDS: DILTIAZEM HCL 5MG/ML 5ML VIAL IV NR ×2 (01:46→05:14)
[2024-08-25] MEDS ORDERED: DILTIAZEM HCL 5MG/ML 5ML VIAL IV PRN (05:00)
[2024-08-25] MEDS: MIDODRINE HCL 5MG TABLET PO SCH (13:05)
[2024-08-25] MEDS: DIGOXIN 500MCG/2ML AMP IV NR (14:00)
[2024-08-25 16:20] LABS: BG BASE EXCESS 16.2 mmol/L (-2.0-3.0); BG DEOXYHEMOGLOBIN 22.4 % (0.0-5.0); BG FRACTION INSPIRED OXYGEN 21; BG HCO3 ACT 47.8 mmol/L (21.0-28.0); BG METHEMOGLOBIN 0.3 % (0.5-1.5); BG OXYGEN SATURATION 77.3 % (94.0-98.0); BG OXYHEMOGLOBIN 76.3 % (94.0-98.0); BG PCO2 100.6 mmHg (32.0-45.0); BG PH 7.295 (7.350-7.450); BG PO2 41.3 mmHg (83.0-108.0); BG SAMPLE SITE RIGHT RADIAL; BG VENT MODE ROOM AIR
[2024-08-25] MEDS: DIGOXIN 250MCG TABLET PO SCH (18:01)
[2024-08-25] MEDS: POTASSIUM CHLORIDE 20MEQ/PACKET PO NR (18:01)
[2024-08-25] MEDS: FUROSEMIDE 40MG/4ML VIAL IVP SCH (18:02)
[2024-08-25 18:54] LABS: BG BASE EXCESS 15.2 mmol/L (-2.0-3.0); BG CARBOXYHEMOGLOBIN 1.4 % (0.5-1.5); BG DEOXYHEMOGLOBIN 2.2 % (0.0-5.0); BG FRACTION INSPIRED OXYGEN 50; BG HCO3 ACT 48.2 mmol/L (21.0-28.0); BG METHEMOGLOBIN 0.3 % (0.5-1.5); BG OXYGEN SATURATION 97.8 % (94.0-98.0); BG OXYHEMOGLOBIN 96.1 % (94.0-98.0); BG PCO2 114.7 mmHg (32.0-45.0); BG PH 7.241 (7.350-7.450); BG SAMPLE SITE RIGHT RADIAL; BG TOTAL HEMOGLOBIN 14.1 g/dL (12.0-16.0); BG VENT MODE MASK - BIPAP
[2024-08-25] MEDS ORDERED: IPRATROPIUM BROMIDE (0.02%) 0.5MG/2.5ML NEB HHN PRN (19:45)
[2024-08-26] VITALS (22 sets, daily range): BP systolic 83–133; BP diastolic 52–110; PULSE 84–107; RESP 7–33; TEMP 35.61396–37.00296; O2SAT 82–100
[2024-08-26 00:14] LABS: POTASSIUM 4.7 mEq/L (3.5-5.1)
[2024-08-26 06:06] LABS: POTASSIUM 5.3 mEq/L (3.5-5.1)
[2024-08-26 06:12] LABS: CREATININE 1.9 mg/dL (0.6-1.0)
[2024-08-26] MEDS: FUROSEMIDE 40MG/4ML VIAL IVP SCH (08:07)
[2024-08-26] MEDS: AMLODIPINE 5MG TABLET PO SCH (12:30)
[2024-08-26] MEDS ORDERED: ACETAZOLAMIDE 250MG TABLET PO NR (18:30)
[2024-08-26 19:06] LABS: BG BASE EXCESS 19.9 mmol/L (-2.0-3.0); BG DEOXYHEMOGLOBIN 16.4 % (0.0-5.0); BG FRACTION INSPIRED OXYGEN 21; BG HCO3 ACT 48.2 mmol/L (21.0-28.0); BG METHEMOGLOBIN 0.3 % (0.5-1.5); BG OXYGEN SATURATION 83.4 % (94.0-98.0); BG OXYHEMOGLOBIN 82.3 % (94.0-98.0); BG PCO2 70.9 mmHg (32.0-45.0); BG TOTAL HEMOGLOBIN 13.9 g/dL (12.0-16.0); BG VENT MODE ROOM AIR
[2024-08-26] MEDS: METHYLPREDNISOLONE SOD SUCC 125MG/2ML (ACT-O-VIAL) IV SCH (21:52)
[2024-08-26] MEDS: METOPROLOL TARTRATE 25MG TABLET PO SCH (21:53)
[2024-08-27] VITALS (18 sets, daily range): BP systolic 123–156; BP diastolic 75–119; PULSE 78–94; RESP 14–22; TEMP 35.94732–37.2252; O2SAT 63–98
[2024-08-27] MEDS ORDERED: NALOXONE HCL 0.4MG/ML VIAL IV PRN (11:15)
[2024-08-27] MEDS: HYDROCODONE/ACETAMINOPHEN 5/325MG TABLET PO PRN (11:42)
[2024-08-27] MEDS ORDERED: METO25TA6 PO (12:37)
[2024-08-27] MEDS ORDERED: DIGO-28 PO (12:37)
[2024-08-27] MEDS ORDERED: AMI2 PO (12:37)
[2024-08-27] MEDS ORDERED: ATOR20TA PO (12:37)
[2024-08-27] MEDS ORDERED: FURO40TA5 PO (12:37)
[2024-08-27] MEDS ORDERED: P20 MT (12:37)
[2024-08-27] MEDS ORDERED: RIVA20TA PO (12:37)
[2024-08-27] MEDS ORDERED: AMLO5TAB88 PO (12:37)
[2024-08-27] MEDS ORDERED: MIDO5TAB4 PO (12:37)
[2024-08-27] MEDS ORDERED: PANT40TA51 PO (12:37)
== END 2024-08-27 23:45 | disposition home health service (06) | DRG 133 ==
LOC: ER 09:01 → EDBEDREQ 09:08 → EDBEDREQSVC 10:47 → EDBEDREQ 10:47 → 5EST 21:02
PROVIDERS: ADMIT Internal Medicine; ATTEND Internal Medicine
PROC: 5A09357 Assistance with Respiratory Ventilation, Less than 24 Consecutive Hours, Continuous Positive Airway Pressure (ICD-10-PCS; principal; 2024-08-25)
PROC: 5A09457 Assistance with Respiratory Ventilation, 24-96 Consecutive Hours, Continuous Positive Airway Pressure (ICD-10-PCS; 2024-08-26)
DX: J96.21 Acute and chronic respiratory failure with hypoxia (principal); G93.41 Metabolic encephalopathy; I50.33 Acute on chronic diastolic (congestive) heart failure; E66.2 Morbid (severe) obesity with alveolar hypoventilation; I48.19 Other persistent atrial fibrillation; M62.82 Rhabdomyolysis; E86.9 Volume depletion, unspecified; Z68.44 Body mass index [BMI] 60.0-69.9, adult; J81.1 Chronic pulmonary edema; J44.1 Chronic obstructive pulmonary disease with (acute) exacerbation; I13.0 Hypertensive heart and chronic kidney disease with heart failure and stage 1 through stage 4 chronic kidney disease, or unspecified chronic kidney disease; N17.9 Acute kidney failure, unspecified; J96.22 Acute and chronic respiratory failure with hypercapnia; I89.0 Lymphedema, not elsewhere classified; I20.9 Angina pectoris, unspecified; E03.9 Hypothyroidism, unspecified; E11.22 Type 2 diabetes mellitus with diabetic chronic kidney disease; N18.9 Chronic kidney disease, unspecified; G89.29 Other chronic pain; Z88.6 Allergy status to analgesic agent; Z91.148 Patient's other noncompliance with medication regimen for other reason; Z88.8 Allergy status to other drugs, medicaments and biological substances; E87.5 Hyperkalemia; N39.0 Urinary tract infection, site not specified
CPT/HCPCS: 36415; 36600; 71045; 76770; 80048; 80305; 81003; 82375; 82550; 82553; 82805; 83605; 83735; 84132; 84145; 84484; 85025; 92523; 93005; 93970; 94003; 94070; 94640; 94660; 97163; 97166; 99291; A6261; J1940; J2405; J2543; J2919; J3370; J3490; J7030

== ENCOUNTER 2024-10-03 12:39 | Inpatient (IN) | payer MEDICARE, MEDICAID ==
[~2024-10-03] VITALS: Ht 172.7 cm; Wt 207.3 kg
[~2024-10-03 12:39] MED LIST changes: +AMI2 PO; -AMIO100T4 PO; +AMLO5TAB88 PO; +ATOR20TA PO; -ATOR20TA65 PO; -CARV6.2548 PO; +DIGO-28 PO; -DULO60CA64 MT; -GABA-1180 PO; -HYDR-4009 PO; -IBUP-2028 MT; -MAG-135 PO; +METO25TA6 PO; +MIDO5TAB4 PO; -NITR0.4T SL; +P20 MT; -POTA-204 PO; -SACU1TAB7 PO; -SENN-371 PO
[2024-10-03 14:29] LABS: HEMATOCRIT. 40.3 % (36.0-48.0); HEMOGLOBIN. 12.4 g/dL (12.0-16.0); MEAN CORPUSCULAR HGB CONC 30.8 g/dL (31.0-37.0); MEAN CORPUSCULAR VOLUME 87.9 fL (81.0-99.0); MEAN PLATELET VOLUME 7.4 fl (7.4-10.4); PLATELET 232 x1000/uL (130-400); RED BLOOD CELL COUNT 4.58 mill/uL (4.2-5.4); RED CELL DISTRIBUTION WIDTH 16.8 % (11.6-14.6); WHITE BLOOD COUNT 5.5 x1000/uL (4.5-11.0)
[2024-10-03 14:33] LABS: PROTHROMBIN TIME 11.5 sec (9.6-11.0)
[2024-10-03 14:35] LABS: DIFFERENTIAL COMMENT 1
[2024-10-03 14:42] LABS: CHLORIDE 102 mEq/L (98-107); POTASSIUM 4.3 mEq/L (3.5-5.1); SODIUM 145 mEq/L (136-145)
[2024-10-03 14:44] LABS: CALCIUM 9.6 mg/dL (8.7-10.4)
[2024-10-03 14:48] LABS: CREATININE 0.9 mg/dL (0.6-1.0); GLUCOSE 99 mg/dL (70-105); TROPONIN I HIGH SENSITIVITY 13 ng/L (3.0-34); UREA NITROGEN BLOOD 18 mg/dL (9-23)
[2024-10-03 14:51] LABS: MICROCYTOSIS 1+; PLATELET ESTIMATE NORMAL
[2024-10-03 15:09] LABS: CARBON DIOXIDE > 40 mEq/L (21-32)
[2024-10-03 16:49] LABS: TROPONIN I HIGH SENSITIVITY 15 ng/L (3.0-34)
[2024-10-03 17:07] VITALS: PULSE 102; RESP 20
[2024-10-03] MEDS: IPRATROPIUM BROMIDE (0.02%) 0.5MG/2.5ML NEB HHN STA (17:07)
[2024-10-03] MEDS: ALBUTEROL (0.083%) 2.5MG/3ML NEB HHN STA (17:07)
[2024-10-03 22:30] VITALS: BP 236/213; PULSE 84; RESP 20; TEMP 36.4736
[2024-10-04] VITALS: BP 106/84; PULSE 90; RESP 20; TEMP 36.61404; O2SAT 96
[2024-10-04 04:00] VITALS: BP 124/62; PULSE 72; RESP 20; TEMP 36.3918; O2SAT 92
[2024-10-04 07:23] LABS: HEPATITIS B SURFACE ANTIGEN NEGATIVE (Negative)
[2024-10-04 07:44] LABS: HEPATITIS C AB NON REACTIVE (Neg) (Negative)
[2024-10-04 08:00] VITALS: BP 118/89; PULSE 94; RESP 22; TEMP 36.89184; O2SAT 95
[2024-10-04] MEDS: HYDROCODONE/ACETAMINOPHEN 5/325MG TABLET PO PRN (10:41)
[2024-10-04 12:00] VITALS: BP 91/68; PULSE 89; RESP 22; TEMP 36.78072; O2SAT 95
[2024-10-04] MEDS ORDERED: ACETAMINOPHEN 325MG TABLET PO PRN ×2 (12:00)
[2024-10-04] MEDS ORDERED: CLONIDINE 0.1MG TABLET PO PRN (12:00)
[2024-10-04] MEDS ORDERED: ONDANSETRON HCL 4MG/2ML INJ IV PRN (12:00)
[2024-10-04] MEDS ORDERED: DOCUSATE SODIUM 100MG CAPSULE PO PRN (12:00)
[2024-10-04] MEDS: LEVOTHYROXINE SODIUM 150MCG TABLET PO SCH (12:34)
[2024-10-04] MEDS: DULOXETINE HCL 30MG DR CAPSULE PO SCH (12:34)
[2024-10-04] MEDS: AMIODARONE 200MG TABLET PO SCH (12:35)
[2024-10-04] MEDS: VANCOMYCIN 1GM/200ML PMX (BAXTER) IV SCH (14:00)
[2024-10-04] MEDS: PIPERACILLIN/TAZO 3.375G/100ML 100 ML IV SCH (14:00)
[2024-10-04] MEDS: RIVAROXABAN 20 MG TABLET PO SCH (17:43)
[2024-10-04] MEDS: DIGOXIN 250MCG TABLET PO SCH (17:43)
[2024-10-04 20:00] VITALS: BP 133/97; PULSE 69; RESP 18; TEMP 36.33624; O2SAT 97
[2024-10-04] MEDS: FUROSEMIDE 40MG TABLET PO SCH (21:47)
[2024-10-04] MEDS: DOCUSATE SODIUM 100MG CAPSULE PO SCH (21:48)
[2024-10-04] MEDS: ATORVASTATIN CALCIUM 20MG TABLET PO SCH (21:49)
[2024-10-04] MEDS: ISOSORBIDE DINITRATE 10MG TABLET PO SCH (21:57)
[2024-10-05] VITALS: BP 109/67; PULSE 66; RESP 20; TEMP 35.66952; O2SAT 96
[2024-10-05] MEDS: VANCOMYCIN 1.5GM/250ML 250 ML IV SCH ×2 (03:00→17:37)
[2024-10-05] MEDS ORDERED: VANCOMYCIN 1.5GM PMX (XELLIA) 300 ML IV SCH (03:00)
[2024-10-05 04:00] VITALS: BP 144/81; PULSE 74; RESP 16; TEMP 36.3918; O2SAT 98
[2024-10-05 08:00] VITALS: BP 148/86; PULSE 94; RESP 22; TEMP 36.61404; O2SAT 97
[2024-10-05] MEDS ORDERED: LIDOCAINE HCL 1% 10 MG/ML 10ML VIAL ONE (08:16)
[2024-10-05] MEDS: PANTOPRAZOLE 40MG DR TABLET PO SCH (08:51)
[2024-10-05 12:00] VITALS: BP 128/86; PULSE 89; RESP 18; TEMP 36.33624; O2SAT 100
[2024-10-05 16:00] VITALS: BP 138/89; PULSE 100; RESP 22; TEMP 36.33624; O2SAT 95
[2024-10-05 20:00] VITALS: BP_SYST 104; BP_SYST 126; BP_DIAS 56; BP_DIAS 79; PULSE 100; PULSE 92; RESP 16; TEMP 36.33624; TEMP 36.3918; O2SAT 98
[2024-10-06] VITALS: BP 126/79; PULSE 92; RESP 16; TEMP 36.3918; O2SAT 98
[2024-10-06 04:00] VITALS: BP 126/79; PULSE 92; RESP 16; TEMP 36.3918; O2SAT 98
[2024-10-06 08:00] VITALS: BP 118/86; PULSE 89; RESP 20; TEMP 36.3918; O2SAT 98
[2024-10-06 10:30] LABS: BG BASE EXCESS 12.6 mmol/L (-2.0-3.0); BG CARBOXYHEMOGLOBIN 1.2 % (0.5-1.5); BG DEOXYHEMOGLOBIN 2.9 % (0.0-5.0); BG FRACTION INSPIRED OXYGEN 34; BG HCO3 ACT 40.6 mmol/L (21.0-28.0); BG METHEMOGLOBIN 0.3 % (0.5-1.5); BG OXYGEN SATURATION 97.1 % (94.0-98.0); BG OXYHEMOGLOBIN 95.6 % (94.0-98.0); BG PCO2 68.9 mmHg (32.0-45.0); BG PH 7.388 (7.350-7.450); BG PO2 87.6 mmHg (83.0-108.0); BG SAMPLE SITE RIGHT RADIAL; BG TOTAL HEMOGLOBIN 13.4 g/dL (12.0-16.0); BG VENT MODE NASAL CANNULA
[2024-10-06 12:00] VITALS: BP 128/86; PULSE 86; RESP 22; TEMP 37.05852; O2SAT 95
[2024-10-06 16:00] VITALS: BP 117/73; PULSE 69; RESP 18; TEMP 37.00296; O2SAT 96
[2024-10-06] MEDS ORDERED: GUAIFENESIN-DM 200MG-20MG/10ML UDC PO PRN (17:15)
[2024-10-06] MEDS ORDERED: NALOXONE HCL 0.4MG/ML VIAL IV PRN (17:30)
[2024-10-06] MEDS: FUROSEMIDE 40MG TABLET PO SCH (17:50)
[2024-10-06] MEDS ORDERED: THROAT LOZENGES-BENZOCAINE/MENTH/CETYLPYRD CL LOZENGES MM PRN (18:30)
[2024-10-06 20:00] VITALS: BP 111/72; PULSE 75; RESP 18; TEMP 36.55848; O2SAT 100
[2024-10-07] VITALS (8 sets, daily range): BP systolic 126–144; BP diastolic 36–79; PULSE 62–85; RESP 18–22; TEMP 36.05844–37.16964; O2SAT 95–100
[2024-10-07] MEDS: PIPERACILLIN/TAZO 3.375G/50ML IV SCH (06:00)
[2024-10-07 07:21] LABS: CALCIUM 9.4 mg/dL (8.7-10.4)
[2024-10-07 07:25] LABS: CREATININE 1.1 mg/dL (0.6-1.0)
[2024-10-07 07:26] LABS: BASOPHILS % 0.4 % (0.0-2.0); EOSINOPHILS % 1.3 % (0.0-5.0); HEMATOCRIT. 40.3 % (36.0-48.0); HEMOGLOBIN. 12.9 g/dL (12.0-16.0); LYMPHOCYTES % 28.7 % (20.0-50.0); MEAN CORPUSCULAR HEMOGLOBIN 27.7 pg (28.0-32.0); MEAN CORPUSCULAR HGB CONC 32.1 g/dL (31.0-37.0); MEAN CORPUSCULAR VOLUME 86.5 fL (81.0-99.0); MEAN PLATELET VOLUME 7.3 fl (7.4-10.4); MONOCYTES % 12.8 % (2.0-8.0); NEUTROPHILS % 56.8 % (40.0-76.0); PLATELET 218 x1000/uL (130-400); RED BLOOD CELL COUNT 4.66 mill/uL (4.2-5.4); RED CELL DISTRIBUTION WIDTH 16.9 % (11.6-14.6); WHITE BLOOD COUNT 4.4 x1000/uL (4.5-11.0)
[2024-10-07] MEDS ORDERED: VANCOMYCIN 1.5GM PMX (XELLIA) 300 ML IV SCH (16:00)
[2024-10-07] MEDS: VANCOMYCIN 1.5GM PMX (XELLIA) 300 ML IV SCH (16:38)
[2024-10-07] MEDS: IPRATROPIUM/ALBUTEROL 0.5-3(2.5)MG/3ML NEB HHN PRN (18:36)
[2024-10-08] VITALS (10 sets, daily range): BP systolic 112–141; BP diastolic 69–87; PULSE 64–78; RESP 15–26; TEMP 35.94732–37.16964; O2SAT 96–100
[2024-10-08] MEDS: LIDOCAINE HCL 4% CREAM 76GM TUBE TP SCH (15:23)
[2024-10-08] MEDS: VANCOMYCIN 1G PREMIX 200 ML IV SCH (19:08)
[2024-10-09] VITALS (11 sets, daily range): BP systolic 122–157; BP diastolic 71–94; PULSE 62–94; RESP 16–24; TEMP 35.89176–36.28068; O2SAT 95–100
[2024-10-09] MEDS: PANTOPRAZOLE 40MG DR TABLET PO SCH (20:37)
[2024-10-10] VITALS: BP 138/64; PULSE 65; RESP 19; TEMP 36.28068; O2SAT 96
[2024-10-10 04:00] VITALS: BP 144/98; PULSE 73; RESP 20; TEMP 35.89176; O2SAT 98
[2024-10-10 08:00] VITALS: BP 149/78; PULSE 67; RESP 18; TEMP 36.3918; O2SAT 96
[2024-10-10 12:00] VITALS: BP 123/80; PULSE 56; PULSE 86; RESP 17; RESP 19; TEMP 36.28068; O2SAT 97; O2SAT 99
[2024-10-10 16:00] VITALS: BP 123/63; PULSE 66; RESP 19; TEMP 36.50292; O2SAT 97
[2024-10-10] MEDS: SUCRALFATE 1G TABLET PO SCH (17:21)
[2024-10-10 20:00] VITALS: BP 146/55; PULSE 70; RESP 20; TEMP 36.28068; O2SAT 95
[2024-10-11 00:11] VITALS: BP 126/60; PULSE 82; RESP 18; TEMP 36.114; O2SAT 96
[2024-10-11 04:00] VITALS: BP 105/61; PULSE 53; RESP 18; TEMP 36.3918; O2SAT 95
[2024-10-11 08:00] VITALS: BP 125/72; PULSE 61; RESP 20; TEMP 36.05844; O2SAT 100
[2024-10-11 12:00] VITALS: BP 114/63; PULSE 67; RESP 20; TEMP 36.6696; O2SAT 99
[2024-10-11 16:00] VITALS: BP 123/66; PULSE 68; RESP 22; TEMP 36.6696; O2SAT 100
[2024-10-11 20:00] VITALS: BP 105/50; PULSE 80; RESP 18; TEMP 36.22512; O2SAT 97
[2024-10-12] VITALS: BP 110/60; PULSE 82; RESP 16; TEMP 36.33624; O2SAT 99
[2024-10-12 04:00] VITALS: BP 136/83; PULSE 79; RESP 16; TEMP 36.55848; O2SAT 100
[2024-10-12 08:00] VITALS: PULSE 64; RESP 16; TEMP 36.50292; O2SAT 96
[2024-10-12 09:10] VITALS: BP 133/72; PULSE 78; TEMP 97.5; O2SAT 97
== END 2024-10-12 11:17 | disposition home health service (06) | DRG 602 ==
LOC: ER 12:39 → EDBEDREQ 13:37 → 7WST 22:17 → 6WST 10-11 02:05
PROVIDERS: ADMIT Internal Medicine; ATTEND Internal Medicine
PROC: 05HY33Z Insertion of Infusion Device into Upper Vein, Percutaneous Approach (ICD-10-PCS; principal; 2024-10-05)
PROC: B54NZZA Ultrasonography of Left Upper Extremity Veins, Guidance (ICD-10-PCS; 2024-10-05)
PROC: 05HY33Z Insertion of Infusion Device into Upper Vein, Percutaneous Approach (ICD-10-PCS; 2024-10-07)
PROC: B54MZZA Ultrasonography of Right Upper Extremity Veins, Guidance (ICD-10-PCS; 2024-10-07)
DX: L03.115 Cellulitis of right lower limb (principal); I50.23 Acute on chronic systolic (congestive) heart failure; J96.21 Acute and chronic respiratory failure with hypoxia; J96.22 Acute and chronic respiratory failure with hypercapnia; J44.1 Chronic obstructive pulmonary disease with (acute) exacerbation; I48.19 Other persistent atrial fibrillation; Q04.8 Other specified congenital malformations of brain; E66.2 Morbid (severe) obesity with alveolar hypoventilation; Z68.44 Body mass index [BMI] 60.0-69.9, adult; L03.116 Cellulitis of left lower limb; I11.0 Hypertensive heart disease with heart failure; I20.9 Angina pectoris, unspecified; K21.9 Gastro-esophageal reflux disease without esophagitis; G89.29 Other chronic pain; E03.9 Hypothyroidism, unspecified; E11.9 Type 2 diabetes mellitus without complications; Z88.6 Allergy status to analgesic agent; Z91.148 Patient's other noncompliance with medication regimen for other reason; Z74.01 Bed confinement status; Z79.899 Other long term (current) drug therapy; Z99.81 Dependence on supplemental oxygen
CPT/HCPCS: 36415; 36573; 36600; 71045; 80048; 80162; 80202; 82375; 82805; 82962; 83880; 84484; 85025; 86705; 87340; 93005; 94070; 94640; 94660; 99285; A4606; A4663; C1725; C1769; J2003; J2543; J3370

== ENCOUNTER 2025-03-31 23:38 | Inpatient (IN) | payer MEDICARE, MEDICAID ==
[~2025-03-31] VITALS: Ht 167.6 cm; Wt 187.3 kg
[~2025-03-31 23:38] MED LIST changes: +ALBU18HF2 PO; -AMLO10TA80 PO; -AMLO5TAB88 PO; +DICL100G58 TP; -DULO30CA52 PO; -FURO40TA5 PO; +HYDR-4009 MT; -METO25TA6 PO; -MIDO5TAB4 PO; +SENN-371 PO; +TRELEGY 200-62.5-25 PO
[2025-04-01] VITALS (45 sets, daily range): BP systolic 71–140; BP diastolic 45–123; PULSE 85–127; RESP 12–26; TEMP 36.4–36.8; O2SAT 63–100
[2025-04-01] MEDS ORDERED: MORPHINE SULFATE 4 MG/ML INJ (FOR IV/IM USE) IV STA (00:34)
[2025-04-01] MEDS ORDERED: ONDANSETRON HCL 4MG/2ML INJ IV STA (00:34)
[2025-04-01 02:12] LABS: BASOPHILS % 0.6 % (0.0-2.0); EOSINOPHILS % 1.8 % (0.0-5.0); HEMATOCRIT. 42.5 % (36.0-48.0); HEMOGLOBIN. 13.0 g/dL (12.0-16.0); LYMPHOCYTES % 29.1 % (20.0-50.0); MEAN PLATELET VOLUME 7.9 fl (7.4-10.4); MONOCYTES % 11.3 % (2.0-8.0); NEUTROPHILS % 57.2 % (40.0-76.0); PLATELET 249 x1000/uL (130-400); RED BLOOD CELL COUNT 5.19 mill/uL (4.2-5.4); RED CELL DISTRIBUTION WIDTH 18.1 % (11.6-14.6)
[2025-04-01] MEDS: MORPHINE SULFATE 4 MG/ML INJ (FOR IV/IM USE) IV SCH (02:33)
[2025-04-01] MEDS: ONDANSETRON HCL 4MG/2ML INJ IV SCH (02:34)
[2025-04-01] MEDS: PIPERACILLIN/TAZO 3.375G/50ML 50 ML IV ONE (02:43)
[2025-04-01 03:05] LABS: CREATININE 1.0 mg/dL (0.6-1.0)
[2025-04-01 03:06] LABS: UREA NITROGEN BLOOD 15 mg/dL (9-23)
[2025-04-01 03:08] LABS: TROPONIN I HIGH SENSITIVITY 15 ng/L (3.0-34)
[2025-04-01] MEDS: VANCOMYCIN 1.5GM/250ML 250 ML IV ONE (04:18)
[2025-04-01] MEDS: DILTIAZEM HCL 5MG/ML 5ML VIAL IV NR (06:23)
[2025-04-01] MEDS ORDERED: DILTIAZEM HCL 125 MG in DEXT 5% WATER 100 ML IV PRN (07:00)
[2025-04-01] MEDS: DILTIAZEM HCL 125 MG in DEXT 5% WATER 100 ML IV PRN (07:06)
[2025-04-01 08:04] LABS: BG BASE EXCESS -1.5 mmol/L (-2.0-3.0); BG CARBOXYHEMOGLOBIN 1.1 % (0.5-1.5); BG DEOXYHEMOGLOBIN 5.6 % (0.0-5.0); BG FLOW(L/min) 32.00 L/min; BG FRACTION INSPIRED OXYGEN 3; BG HCO3 ACT 32.5 mmol/L (21.0-28.0); BG METHEMOGLOBIN 0.2 % (0.5-1.5); BG OXYGEN SATURATION 94.3 % (94.0-98.0); BG OXYHEMOGLOBIN 93.1 % (94.0-98.0); BG PCO2 116.6 mmHg (32.0-45.0); BG PH 7.063 (7.350-7.450); BG PO2 91.7 mmHg (83.0-108.0); BG SAMPLE SITE LEFT RADIAL; BG TOTAL HEMOGLOBIN 14.4 g/dL (12.0-16.0); BG VENT MODE NASAL CANNULA
[2025-04-01] MEDS: FUROSEMIDE 20MG/2ML VIAL IVP SCH (10:00)
[2025-04-01] MEDS ORDERED: NALOXONE HCL 0.4MG/ML VIAL IV PRN (10:15)
[2025-04-01] MEDS: PIPERACILLIN/TAZO 3.375G/50ML 50 ML IV SCH (14:50)
[2025-04-01 15:17] LABS: BG BASE EXCESS 2.1 mmol/L (-2.0-3.0); BG CARBOXYHEMOGLOBIN 1.5 % (0.5-1.5); BG DEOXYHEMOGLOBIN 4.7 % (0.0-5.0); BG FRACTION INSPIRED OXYGEN 35; BG HCO3 ACT 33.3 mmol/L (21.0-28.0); BG METHEMOGLOBIN 0.3 % (0.5-1.5); BG OXYGEN SATURATION 95.2 % (94.0-98.0); BG OXYHEMOGLOBIN 93.5 % (94.0-98.0); BG PCO2 91.0 mmHg (32.0-45.0); BG PH 7.181 (7.350-7.450); BG PO2 85.3 mmHg (83.0-108.0); BG SAMPLE SITE LEFT RADIAL; BG TOTAL HEMOGLOBIN 13.3 g/dL (12.0-16.0); BG TOTAL RESPIRATORY RATE 20 b/min; BG VENT MODE MASK - BIPAP; BG VENT RATE 20.0 set
[2025-04-01] MEDS: RIVAROXABAN 20 MG TABLET PO SCH (17:37)
[2025-04-01] MEDS ORDERED: VANCOMYCIN 1.25GM PMX (XELLIA) 250 ML IV SCH (18:00)
[2025-04-01] MEDS: FAMOTIDINE 20MG TABLET PO SCH (20:21)
[2025-04-01] MEDS: VANCOMYCIN 1,750 MG in DEXT 5% WATER 500 ML IV SCH (20:21)
[2025-04-01] MEDS: ATORVASTATIN CALCIUM 20MG TABLET PO SCH (20:21)
[2025-04-01] MEDS: MICONAZOLE NITRATE 2% OINT 71GM TOP SCH (20:23)
[2025-04-01 22:11] LABS: BG BASE EXCESS 3.5 mmol/L (-2.0-3.0); BG CARBOXYHEMOGLOBIN 1.5 % (0.5-1.5); BG DEOXYHEMOGLOBIN 1.3 % (0.0-5.0); BG FRACTION INSPIRED OXYGEN 45; BG HCO3 ACT 34.8 mmol/L (21.0-28.0); BG METHEMOGLOBIN 0.3 % (0.5-1.5); BG OXYGEN SATURATION 98.7 % (94.0-98.0); BG OXYHEMOGLOBIN 96.9 % (94.0-98.0); BG PCO2 94.6 mmHg (32.0-45.0); BG PH 7.184 (7.350-7.450); BG PO2 135.6 mmHg (83.0-108.0); BG SAMPLE SITE RIGHT RADIAL; BG TOTAL HEMOGLOBIN 13.3 g/dL (12.0-16.0); BG VENT MODE MASK - BIPAP; BG VENT RATE 20.0 set
[2025-04-02] VITALS (57 sets, daily range): BP systolic 79–157; BP diastolic 55–130; PULSE 71–175; RESP 11–26; TEMP 36.7–37.8; O2SAT 85–100
[2025-04-02] MEDS: NOREPINEPHRINE 8MG/250ML PMX 250 ML IV PRN
[2025-04-02] MEDS: PROPOFOL 10MG/ML 100ML 100 ML IV PRN (00:50)
[2025-04-02 04:54] LABS: BASOPHILS % 0.4 % (0.0-2.0); EOSINOPHILS % 0.8 % (0.0-5.0); HEMATOCRIT. 40.0 % (36.0-48.0); HEMOGLOBIN. 12.2 g/dL (12.0-16.0); LYMPHOCYTES % 8.3 % (20.0-50.0); MEAN PLATELET VOLUME 7.6 fl (7.4-10.4); MONOCYTES % 9.1 % (2.0-8.0); NEUTROPHILS % 81.4 % (40.0-76.0); PLATELET 306 x1000/uL (130-400); RED BLOOD CELL COUNT 4.82 mill/uL (4.2-5.4); RED CELL DISTRIBUTION WIDTH 17.6 % (11.6-14.6)
[2025-04-02 05:07] LABS: BG BASE EXCESS 0.0 mmol/L (-2.0-3.0); BG CARBOXYHEMOGLOBIN 0.8 % (0.5-1.5); BG DEOXYHEMOGLOBIN 0.6 % (0.0-5.0); BG FRACTION INSPIRED OXYGEN 100; BG HCO3 ACT 28.2 mmol/L (21.0-28.0); BG METHEMOGLOBIN 0.3 % (0.5-1.5); BG OXYGEN SATURATION 99.4 % (94.0-98.0); BG OXYHEMOGLOBIN 98.3 % (94.0-98.0); BG PCO2 62.0 mmHg (32.0-45.0); BG PEEP (cmH2O) 5.0 cmH2O; BG PH 7.275 (7.350-7.450); BG PO2 169.6 mmHg (83.0-108.0); BG SAMPLE SITE RIGHT RADIAL; BG TIDAL VOLUME(mL) 500.0 mL; BG TOTAL HEMOGLOBIN 13.7 g/dL (12.0-16.0); BG VENT MODE VENT - AC; BG VENT RATE 18.0 set
[2025-04-02 05:11] LABS: TRIGLYCERIDE 263 mg/dL (0-150); UREA NITROGEN BLOOD 19 mg/dL (9-23)
[2025-04-02 05:12] LABS: ASPARTATE AMINOTRANSFERASE 22 IU/L (<34)
[2025-04-02 05:13] LABS: BILIRUBIN TOTAL 0.9 mg/dL (0.1-1.0); PROTEIN TOTAL 6.1 g/dL (6.0-8.3)
[2025-04-02 05:18] LABS: CREATININE 1.4 mg/dL (0.6-1.0)
[2025-04-02] MEDS: LEVOTHYROXINE SODIUM 150MCG TABLET PO SCH (05:34)
[2025-04-02] MEDS ORDERED: LIDOCAINE HCL 1% 10 MG/ML 10ML VIAL ONE (08:28)
[2025-04-02] MEDS ORDERED: DEXTROSE 50% WATER 50ML SYRINGE IV PRN (10:45)
[2025-04-02] MEDS ORDERED: DEXMEDETOMIDINE 400 MCG/100 ML 100 ML IV PRN (10:45)
[2025-04-02] MEDS: DEXMEDETOMIDINE 400 MCG in SODIUM CHLORIDE 0.9% 100 ML IV PRN (11:08)
[2025-04-02] MEDS: ISOSORBIDE DINITRATE 10MG TABLET PO SCH (11:11)
[2025-04-02] MEDS: AMIODARONE 200MG TABLET PO SCH (11:12)
[2025-04-02] MEDS: BLOOD SUGAR DIAGNOSTIC STRIP TEST SCH (11:12)
[2025-04-02 11:13] LABS: HEMATOCRIT. 40.4 % (36.0-48.0); HEMOGLOBIN. 12.4 g/dL (12.0-16.0); MEAN PLATELET VOLUME 7.6 fl (7.4-10.4); PLATELET 290 x1000/uL (130-400); RED BLOOD CELL COUNT 4.95 mill/uL (4.2-5.4); RED CELL DISTRIBUTION WIDTH 17.6 % (11.6-14.6)
[2025-04-02 11:23] LABS: CREATININE 1.6 mg/dL (0.6-1.0); UREA NITROGEN BLOOD 21.0 mg/dL (9-23)
[2025-04-02 11:40] LABS: BG BASE EXCESS 4.4 mmol/L (-2.0-3.0); BG CARBOXYHEMOGLOBIN 0.8 % (0.5-1.5); BG DEOXYHEMOGLOBIN 0.5 % (0.0-5.0); BG FRACTION INSPIRED OXYGEN 100; BG HCO3 ACT 29.2 mmol/L (21.0-28.0); BG METHEMOGLOBIN 0.0 % (0.5-1.5); BG OXYGEN SATURATION 99.5 % (94.0-98.0); BG OXYHEMOGLOBIN 98.7 % (94.0-98.0); BG PCO2 44.4 mmHg (32.0-45.0); BG PEEP (cmH2O) 5.0 cmH2O; BG PH 7.436 (7.350-7.450); BG PO2 201.6 mmHg (83.0-108.0); BG SAMPLE SITE RIGHT RADIAL; BG TIDAL VOLUME(mL) 500.0 mL; BG TOTAL HEMOGLOBIN 13.3 g/dL (12.0-16.0); BG VENT MODE VENT - AC; BG VENT RATE 24.0 set
[2025-04-02] MEDS: INSULIN LISPRO 100 UNITS/ML SUBCUT SCH (12:00)
[2025-04-02 12:14] LABS: BAND% 23.0 % (1.0-6.0); LYMPHOCYTES % MANUAL 13.0 % (20.0-60.0); MONOCYTES % MANUAL 12.0 % (2.0-8.0); NEUTROPHILS % MANUAL 52.0 % (45.0-75.0); PLATELET ESTIMATE NORMAL
[2025-04-02] MEDS: MIDODRINE HCL 5MG TABLET PO SCH (16:02)
[2025-04-03] VITALS (96 sets, daily range): BP systolic 71–180; BP diastolic 2–145; PULSE 82–106; RESP 12–29; TEMP 37.2–37.7; O2SAT 89–100
[2025-04-03 05:59] LABS: BASOPHILS % 0.2 % (0.0-2.0); EOSINOPHILS % 0.4 % (0.0-5.0); HEMATOCRIT. 35.1 % (36.0-48.0); HEMOGLOBIN. 11.1 g/dL (12.0-16.0); LYMPHOCYTES % 16.1 % (20.0-50.0); MEAN PLATELET VOLUME 7.8 fl (7.4-10.4); MONOCYTES % 9.9 % (2.0-8.0); NEUTROPHILS % 73.4 % (40.0-76.0); PLATELET 215 x1000/uL (130-400); RED BLOOD CELL COUNT 4.38 mill/uL (4.2-5.4); RED CELL DISTRIBUTION WIDTH 18.0 % (11.6-14.6)
[2025-04-03 06:15] LABS: CREATININE 1.7 mg/dL (0.6-1.0)
[2025-04-03 06:16] LABS: UREA NITROGEN BLOOD 24 mg/dL (9-23)
[2025-04-03 06:18] LABS: ASPARTATE AMINOTRANSFERASE 17 IU/L (<34); BILIRUBIN TOTAL 1.3 mg/dL (0.1-1.0); PROTEIN TOTAL 5.0 g/dL (6.0-8.3)
[2025-04-03] MEDS: IPRATROPIUM BROMIDE (0.02%) 0.5MG/2.5ML NEB HHN PRN (08:41)
[2025-04-03] MEDS: ISOSORBIDE DINITRATE 10MG TABLET PO SCH (09:12)
[2025-04-03] MEDS: VANCOMYCIN 1.25GM/250ML IV SCH (12:42)
[2025-04-03 14:41] LABS: BG BASE EXCESS 8.8 mmol/L (-2.0-3.0); BG CARBOXYHEMOGLOBIN 1.3 % (0.5-1.5); BG DEOXYHEMOGLOBIN 1.2 % (0.0-5.0); BG FRACTION INSPIRED OXYGEN 50; BG HCO3 ACT 33.0 mmol/L (21.0-28.0); BG METHEMOGLOBIN 0.3 % (0.5-1.5); BG OXYGEN SATURATION 98.8 % (94.0-98.0); BG OXYHEMOGLOBIN 97.2 % (94.0-98.0); BG PCO2 43.4 mmHg (32.0-45.0); BG PEEP (cmH2O) 5.0 cmH2O; BG PH 7.499 (7.350-7.450); BG PO2 127.3 mmHg (83.0-108.0); BG SAMPLE SITE RIGHT RADIAL; BG TIDAL VOLUME(mL) 500.0 mL; BG TOTAL HEMOGLOBIN 13.3 g/dL (12.0-16.0); BG VENT MODE VENT - AC; BG VENT RATE 20.0 set
[2025-04-03] MEDS: MIDODRINE HCL 5MG TABLET PO SCH (16:36)
[2025-04-04] VITALS (99 sets, daily range): BP systolic 80–187; BP diastolic 33–118; PULSE 71–151; RESP 9–34; TEMP 36.3–36.6; O2SAT 86–100
[2025-04-04] MEDS: DIPHENHYDRAMINE 50MG/ML VIAL IM PRN (00:25)
[2025-04-04 06:00] LABS: BASOPHILS % 0.5 % (0.0-2.0); EOSINOPHILS % 2.4 % (0.0-5.0); HEMATOCRIT. 35.0 % (36.0-48.0); HEMOGLOBIN. 11.1 g/dL (12.0-16.0); LYMPHOCYTES % 18.3 % (20.0-50.0); MEAN PLATELET VOLUME 7.6 fl (7.4-10.4); MONOCYTES % 9.9 % (2.0-8.0); NEUTROPHILS % 68.9 % (40.0-76.0); PLATELET 216 x1000/uL (130-400); RED BLOOD CELL COUNT 4.38 mill/uL (4.2-5.4); RED CELL DISTRIBUTION WIDTH 18.3 % (11.6-14.6)
[2025-04-04 06:42] LABS: CREATININE 1.5 mg/dL (0.6-1.0)
[2025-04-04 06:43] LABS: UREA NITROGEN BLOOD 23 mg/dL (9-23)
[2025-04-04 06:44] LABS: ASPARTATE AMINOTRANSFERASE 23 IU/L (<34); T4 FREE 0.59 ng/dL (0.89-1.76)
[2025-04-04 06:45] LABS: BILIRUBIN TOTAL 1.6 mg/dL (0.1-1.0); PROTEIN TOTAL 5.3 g/dL (6.0-8.3)
[2025-04-04] MEDS: HYDROCODONE/ACETAMINOPHEN 10/325MG TABLET PO PRN (08:05)
[2025-04-04 10:38] LABS: BG BASE EXCESS 4.5 mmol/L (-2.0-3.0); BG CARBOXYHEMOGLOBIN 1.5 % (0.5-1.5); BG DEOXYHEMOGLOBIN 2.5 % (0.0-5.0); BG FRACTION INSPIRED OXYGEN 50; BG HCO3 ACT 30.0 mmol/L (21.0-28.0); BG METHEMOGLOBIN 0.3 % (0.5-1.5); BG OXYGEN SATURATION 97.5 % (94.0-98.0); BG OXYHEMOGLOBIN 95.7 % (94.0-98.0); BG PCO2 47.3 mmHg (32.0-45.0); BG PEEP (cmH2O) 5.0 cmH2O; BG PH 7.420 (7.350-7.450); BG PO2 98.9 mmHg (83.0-108.0); BG SAMPLE SITE LEFT RADIAL; BG TIDAL VOLUME(mL) 500.0 mL; BG TOTAL HEMOGLOBIN 16.5 g/dL (12.0-16.0); BG TOTAL RESPIRATORY RATE 18 b/min; BG VENT MODE VENT - AC; BG VENT RATE 18.0 set
[2025-04-04] MEDS: LORAZEPAM 2MG/ML UD SYRINGE IV SCH (10:46)
[2025-04-04] MEDS: HYDRALAZINE 20MG/ML VIAL IV PRN (12:00)
[2025-04-04] MEDS: METHYLPREDNISOLONE SOD SUCC 40MG/ML (ACT-O-VIAL) IV SCH (12:00)
[2025-04-04] MEDS: KCL 20MEQ/100ML PREMIX 100 ML IV ONE (12:35)
[2025-04-04 19:17] LABS: BG BASE EXCESS 3.3 mmol/L (-2.0-3.0); BG CARBOXYHEMOGLOBIN 0.8 % (0.5-1.5); BG DEOXYHEMOGLOBIN 0.1 % (0.0-5.0); BG FLOW(L/min) 15.00 L/min; BG FRACTION INSPIRED OXYGEN 100; BG HCO3 ACT 30.8 mmol/L (21.0-28.0); BG METHEMOGLOBIN 0.3 % (0.5-1.5); BG OXYGEN SATURATION 99.9 % (94.0-98.0); BG OXYHEMOGLOBIN 98.8 % (94.0-98.0); BG PCO2 59.4 mmHg (32.0-45.0); BG PH 7.333 (7.350-7.450); BG PO2 330.7 mmHg (83.0-108.0); BG TOTAL HEMOGLOBIN 14.3 g/dL (12.0-16.0); BG VENT MODE MASK - NRB
[2025-04-04 21:23] LABS: BG BASE EXCESS 5.5 mmol/L (-2.0-3.0); BG CARBOXYHEMOGLOBIN 1.2 % (0.5-1.5); BG DEOXYHEMOGLOBIN 1.2 % (0.0-5.0); BG FRACTION INSPIRED OXYGEN 50; BG HCO3 ACT 32.0 mmol/L (21.0-28.0); BG METHEMOGLOBIN 0.3 % (0.5-1.5); BG OXYGEN SATURATION 98.8 % (94.0-98.0); BG OXYHEMOGLOBIN 97.3 % (94.0-98.0); BG PCO2 54.7 mmHg (32.0-45.0); BG PH 7.385 (7.350-7.450); BG PO2 137.5 mmHg (83.0-108.0); BG SAMPLE SITE RIGHT RADIAL; BG TOTAL HEMOGLOBIN 13.3 g/dL (12.0-16.0); BG TOTAL RESPIRATORY RATE 27 b/min; BG VENT MODE MASK - BIPAP; BG VENT RATE 16.0 set
[2025-04-05] VITALS (58 sets, daily range): BP systolic 74–144; BP diastolic 42–93; PULSE 95–162; RESP 11–22; TEMP 36.3–37.1; O2SAT 90–96
[2025-04-05 05:46] LABS: HEMATOCRIT. 37.9 % (36.0-48.0); HEMOGLOBIN. 12.0 g/dL (12.0-16.0); MEAN PLATELET VOLUME 7.3 fl (7.4-10.4); PLATELET 269 x1000/uL (130-400); RED BLOOD CELL COUNT 4.72 mill/uL (4.2-5.4); RED CELL DISTRIBUTION WIDTH 18.4 % (11.6-14.6)
[2025-04-05 06:01] LABS: CREATININE 1.5 mg/dL (0.6-1.0)
[2025-04-05 06:02] LABS: UREA NITROGEN BLOOD 24.0 mg/dL (9-23)
[2025-04-05] MEDS ORDERED: DILTIAZEM HCL 5MG/ML 5ML VIAL IV PRN (08:15)
[2025-04-05] MEDS: DILTIAZEM HCL 5MG/ML 5ML VIAL IV SCH (08:26)
[2025-04-05 09:15] LABS: BG BASE EXCESS 2.9 mmol/L (-2.0-3.0); BG CARBOXYHEMOGLOBIN 1.4 % (0.5-1.5); BG DEOXYHEMOGLOBIN 7.7 % (0.0-5.0); BG FLOW(L/min) 4.00 L/min; BG FRACTION INSPIRED OXYGEN 36; BG HCO3 ACT 31.1 mmol/L (21.0-28.0); BG METHEMOGLOBIN 0.0 % (0.5-1.5); BG OXYGEN SATURATION 92.2 % (94.0-98.0); BG OXYHEMOGLOBIN 90.9 % (94.0-98.0); BG PCO2 62.4 mmHg (32.0-45.0); BG PH 7.316 (7.350-7.450); BG PO2 71.2 mmHg (83.0-108.0); BG SAMPLE SITE RIGHT RADIAL; BG TOTAL HEMOGLOBIN 16.0 g/dL (12.0-16.0); BG VENT MODE NASAL CANNULA
[2025-04-05 12:07] LABS: BAND% 5.0 % (1.0-6.0); LYMPHOCYTES % MANUAL 16.0 % (20.0-60.0); MONOCYTES % MANUAL 2.0 % (2.0-8.0); NEUTROPHILS % MANUAL 77.0 % (45.0-75.0)
[2025-04-05 12:08] LABS: PLATELET ESTIMATE NORMAL
[2025-04-05] MEDS: METOCLOPRAMIDE HCL 10MG/2ML VIAL IV PRN (13:02)
[2025-04-05] MEDS: DILTIAZEM HCL 125 MG in DEXT 5% WATER 100 ML IV PRN (15:09)
[2025-04-06] VITALS (55 sets, daily range): BP systolic 102–204; BP diastolic 63–137; PULSE 85–133; RESP 11–31; TEMP 36.7–37.1; O2SAT 92–98
[2025-04-06] MEDS ORDERED: DILTIAZEM HCL 60MG TABLET PO SCH (10:45)
[2025-04-06] MEDS: DILTIAZEM HCL 60MG TABLET PO SCH (11:46)
[2025-04-06 20:47] LABS: HEMATOCRIT. 35.0 % (36.0-48.0); HEMOGLOBIN. 11.1 g/dL (12.0-16.0); MEAN PLATELET VOLUME 6.9 fl (7.4-10.4); PLATELET 287 x1000/uL (130-400); RED BLOOD CELL COUNT 4.38 mill/uL (4.2-5.4); RED CELL DISTRIBUTION WIDTH 17.6 % (11.6-14.6)
[2025-04-06 21:00] LABS: CREATININE 1.5 mg/dL (0.6-1.0)
[2025-04-06 21:01] LABS: UREA NITROGEN BLOOD 33.0 mg/dL (9-23)
[2025-04-06 21:29] LABS: LYMPHOCYTES % MANUAL 10.0 % (20.0-60.0); MONOCYTES % MANUAL 5.0 % (2.0-8.0); NEUTROPHILS % MANUAL 85.0 % (45.0-75.0); PLATELET ESTIMATE NORMAL
[2025-04-07] VITALS (16 sets, daily range): BP systolic 135–159; BP diastolic 74–128; PULSE 77–103; RESP 13–22; TEMP 36.2–36.7; O2SAT 91–97
[2025-04-07] MEDS: INSULIN LISPRO 100 UNITS/ML SUBCUT SCH (12:16)
[2025-04-07] MEDS: INSULIN GLARGINE 100 UNITS/ML SUBCUT SCH (12:23)
[2025-04-07] MEDS: HYDRALAZINE HCL 25MG TABLET PO SCH (13:01)
[2025-04-08] VITALS (14 sets, daily range): BP systolic 110–185; BP diastolic 63–149; PULSE 87–110; RESP 16–24; TEMP 36.3–37; O2SAT 94–100
[2025-04-08] MEDS: ACETAMINOPHEN 650MG/20.3ML UDC PO PRN (12:08)
[2025-04-08] MEDS ORDERED: ATOR20TA65 PO (23:55)
[2025-04-08] MEDS ORDERED: PANT40TA51 PO (23:55)
[2025-04-08] MEDS ORDERED: P20 PO (23:55)
[2025-04-08] MEDS ORDERED: DIGO250T PO (23:55)
== END 2025-04-09 00:10 | DRG 622 ==
LOC: ER 23:38 → MICUSO 04-01 03:21 → EDBEDREQTM 04-01 04:05 → EDBEDREQ 04-01 04:05 → CANRESERV 04-01 06:26 → ENRESERV 04-01 06:26 → EDBEDREQSVC 04-01 07:08 → ENRESERV 04-01 07:55 → MICUNO 04-03 06:24 → 5EST 04-06 22:38
PROVIDERS: ADMIT Internal Medicine; ATTEND Internal Medicine
PROC: 5A09357 Assistance with Respiratory Ventilation, Less than 24 Consecutive Hours, Continuous Positive Airway Pressure (ICD-10-PCS; 2025-04-01)
PROC: 06HY33Z Insertion of Infusion Device into Lower Vein, Percutaneous Approach (ICD-10-PCS; 2025-04-02)
PROC: B54BZZA Ultrasonography of Right Lower Extremity Veins, Guidance (ICD-10-PCS; 2025-04-02)
PROC: 5A1945Z Respiratory Ventilation, 24-96 Consecutive Hours (ICD-10-PCS; 2025-04-02)
PROC: 0BH17EZ Insertion of Endotracheal Airway into Trachea, Via Natural or Artificial Opening (ICD-10-PCS; 2025-04-02)
PROC: 02HV33Z Insertion of Infusion Device into Superior Vena Cava, Percutaneous Approach (ICD-10-PCS; 2025-04-02)
PROC: B548ZZA Ultrasonography of Superior Vena Cava, Guidance (ICD-10-PCS; 2025-04-02)
PROC: 5A09357 Assistance with Respiratory Ventilation, Less than 24 Consecutive Hours, Continuous Positive Airway Pressure (ICD-10-PCS; 2025-04-04)
PROC: 5A09357 Assistance with Respiratory Ventilation, Less than 24 Consecutive Hours, Continuous Positive Airway Pressure (ICD-10-PCS; 2025-04-05)
PROC: 5A09357 Assistance with Respiratory Ventilation, Less than 24 Consecutive Hours, Continuous Positive Airway Pressure (ICD-10-PCS; 2025-04-06)
PROC: 5A09357 Assistance with Respiratory Ventilation, Less than 24 Consecutive Hours, Continuous Positive Airway Pressure (ICD-10-PCS; 2025-04-07)
PROC: 0JBP0ZZ Excision of Left Lower Leg Subcutaneous Tissue and Fascia, Open Approach (ICD-10-PCS; principal; 2025-04-08)
DX: E11.622 Type 2 diabetes mellitus with other skin ulcer (principal); I50.33 Acute on chronic diastolic (congestive) heart failure; J96.21 Acute and chronic respiratory failure with hypoxia; J96.22 Acute and chronic respiratory failure with hypercapnia; L03.119 Cellulitis of unspecified part of limb; E87.29 Other acidosis; J44.1 Chronic obstructive pulmonary disease with (acute) exacerbation; G93.40 Encephalopathy, unspecified; E66.2 Morbid (severe) obesity with alveolar hypoventilation; Z68.44 Body mass index [BMI] 60.0-69.9, adult; L97.921 Non-pressure chronic ulcer of unspecified part of left lower leg limited to breakdown of skin; I11.0 Hypertensive heart disease with heart failure; I48.91 Unspecified atrial fibrillation; E03.9 Hypothyroidism, unspecified; I95.9 Hypotension, unspecified; I89.0 Lymphedema, not elsewhere classified; L30.4 Erythema intertrigo; E05.90 Thyrotoxicosis, unspecified without thyrotoxic crisis or storm; S91.302A Unspecified open wound, left foot, initial encounter; L30.9 Dermatitis, unspecified; G89.29 Other chronic pain; Z79.01 Long term (current) use of anticoagulants; Z99.81 Dependence on supplemental oxygen; Z99.3 Dependence on wheelchair; Z74.01 Bed confinement status; Z88.6 Allergy status to analgesic agent; Z88.8 Allergy status to other drugs, medicaments and biological substances; X58.XXXA Exposure to other specified factors, initial encounter; Y93.89 Activity, other specified; Y92.89 Other specified places as the place of occurrence of the external cause; Y99.8 Other external cause status
CPT/HCPCS: 31500; 31720; 36415; 36573; 36600; 71045; 80048; 80053; 80162; 80202; 82375; 82805; 82962; 83605; 83880; 84145; 84439; 84443; 84478; 84484; 85025; 85379; 92610; 93005; 93970; 94002; 94003; 94070; 94640; 94660; 94664; 94760; 97162; 97166; 98960; 99285; A4606; A6261; C1725; J0360; J1200; J1815; J1938; J2003; J2060; J2270; J2405; J2543; J2704; J2765; J2919; J3373; J3480; J3490; J7060